=== PATIENT | female | born 1940 | race Caucasian/White ===

== ENCOUNTER → 2017-04-28 09:52 | Outpatient (CLI) | payer MEDICARE, OTHER, SELFPAY | PROVIDERS: Family Provider Family Medicine Geriatric Medicine; PCP Family Medicine Geriatric Medicine; Visit Provider Family Medicine Geriatric Medicine | DX: R69 Illness, unspecified (principal) ==

== ENCOUNTER → 2017-04-28 12:10 | Outpatient (CLI) | payer MEDICARE, OTHER, SELFPAY ==
[2017-04-28 13:17] LABS: Absolute Lymphocyte Count 2.74 X10^3/ul (0.83-4.51); Absolute Neutrophil Count 3.3 X10^3/uL (2.0-7.7); Basophil# 0.03 X10^3/uL; Basophil% 0.4 % (0-1); Eosinophil# 0.32 X10^3/uL; Eosinophils% 4.6 % (0-5); Hematocrit 38.1 % (37-47); Hemoglobin 11.9 g/dl (12.0-15.0); Lymphocyte # 2.74 X10^3/ul (4.0); Lymphocyte % 39.1 % (19-41); Mean Corp Hgb Conc 31.2 g/gl (32-36); Mean Corpuscular Hgb 29.6 pg (27.0-32.0); Mean Corpuscular Volume 94.8 fL (81-99); Mean Platelet Vol. 10.2 fl (6.2-12.0); Monocyte# 0.62 X10^3/uL; Monocyte% 8.8 % (0-10); Neutrophil # 3.29 X10^3/uL (2.7-7.7); Platelet Count 265 K/mm3 (150-450); RBC Distribution Width SD 44.8 fl (35.1-43.9); Red Blood Count 4.02 M/mm3 (4.2-5.4)
[2017-04-28 13:28] LABS: POSITIVE COUNT NO; POSITIVE DIFFERENTIAL NO; POSITIVE MORPHOLOGY NO
[2017-04-28 13:45] LABS: ALB/GLOB Ratio 0.9 RATIO (0.9-2.4); AST(SGOT) 25 U/L (15-37); Alanine Aminotransfer ALT/SGPT 24 U/L (13-56); Albumin, Serum 3.5 g/dL (3.2-5.0); Alkaline Phosphatase 101 U/L (45-117); Anion Gap 7 (5-15); BUN 16 mg/dL (7-18); BUN/Creat Ratio 19.1 RATIO (10-20); Calcium,Total 8.7 mg/dL (8.5-10.1); Chloride 104 mmol/L (98-107); Creatinine, Serum 0.84 mg/dL (0.55-1.02); EST Glomerular Filtration Rate 70 mL/min (>60); Est Glom Filt Rate - Afr Amer 85 mL/min (>60); Glucose 90 mg/dL (74-106); Potassium 4.4 mmol/L (3.5-5.1); Protein, Total 7.5 g/dL (6.4-8.2); Sodium Level 140 mmol/L (136-145); Thyroid Stim Hormone (TSH) 3.48 uIU/mL (0.358-3.74)
[2017-04-29 10:36] LABS: Vitamin D,25 Hydroxy 22.8 ng/mL (19.95-100.01)
== END ==
PROVIDERS: Family Provider Family Medicine Geriatric Medicine; PCP Family Medicine Geriatric Medicine; Visit Provider Family Medicine Geriatric Medicine
DX: E55.9 Vitamin D deficiency, unspecified (principal); I10 Essential (primary) hypertension
CPT/HCPCS: 36415; 80053; 82306; 84443; 85025

== ENCOUNTER → 2017-05-04 08:23 | Outpatient (CLI) | payer MEDICARE, OTHER, SELFPAY ==
--- NOTE | 2017-05-04 08:26 | US_ITS ---
STUDY: THYROID ULTRASOUND REASON FOR EXAM: Female, 76 years old. Thyroid nodule. TECHNIQUE: Ultrasound evaluation of the thyroid was performed with real-time and static kaur-scale imaging. COMPARISON: None. FINDINGS: RIGHT LOBE: The right lobe of the thyroid gland measures 4.3 cm x 1.4 cm x 1.1 cm. There is a homogeneous echotexture. There are no demonstrated solid, cystic or complex lesions. LEFT LOBE: The left lobe of the thyroid gland measures 4.1 cm x 1.3 cm x 1.4 cm. There is a homogeneous echotexture. There is a 1.4 cm x 1 cm x 1 cm hypoechoic solid nodule in the midportion of the left lobe of the thyroid. ISTHMUS: The isthmus measures 2.0 mm. The regional lymph nodes are normal. US/Thyroid IMPRESSION: 1.4 cm x 1 cm x 1 cm solid nodule in the midportion of the left lobe. A biopsy is recommended. Electronically Signed: Michael Wynn MD at 15:11 EST Tel [phone], Service support ,
--- NOTE | 2017-05-04 08:34 | US_ITS ---
PROCEDURES: ULTRASOUND AORTA REASON FOR EXAM: Female, 76 years old. History of abdominal aortic aneurysm. TECHNIQUE: Ultrasound evaluation of the aorta was performed with real-time and static kaur-scale imaging. COMPARISON: Comparison is made with prior CT scan the abdomen dated August 08, 2016. FINDINGS: There is obscuration of the abdominal aorta by overlying bowel gas Aorta measures: Proximal 3.1 cm. Middle 2.9 cm. Distal 1.5 cm. Aorta measure transversely: Proximal 2.7 cm. Middle 2.4 cm. Distal 1.4 cm. Right iliac artery measures: 1.8 cm. Right iliac artery measure transversely: 1.0 cm. Left iliac artery measures: 1.8 cm. Left iliac artery measure transversely: 1.0 cm. There is no demonstrated aneurysm.. US/Aorta IMPRESSION: There is no evidence of abdominal aortic aneurysm. Electronically Signed: Michael Wynn MD at 15:38 EST Tel [phone], Service support ,
== END ==
PROVIDERS: Family Provider Family Medicine Geriatric Medicine; PCP Family Medicine Geriatric Medicine; Visit Provider Family Medicine Geriatric Medicine
DX: I71.4 Abdominal aortic aneurysm, without rupture (principal); E04.1 Nontoxic single thyroid nodule
CPT/HCPCS: 76536; 76775

== ENCOUNTER → 2017-05-19 13:30 | Outpatient (CLI) | payer MEDICARE, OTHER, SELFPAY ==
--- NOTE | 2017-05-19 | ASPIG_PTH ---
PATIENT: LEONARDO MORAN LOC: U#:[id number] AGE/SX: 84/F ROOM: RE05/19/[address]: Dr. Abraham Gallo MD : 1940 BED: DIS: SPEC #: [id number] RECD: 05/19/17 15:38 STATUS: RAPHAEL STEPHON #: [id number] RAVINDRA: 05/19/17 00:[address]: Abraham Gallo [facility] DEPT: CYTOLOGY RECD BY: Stephan Corral Tissues: Thyroid gland, NOS Procedures: FNA Specimen Adequacy Pap Stain (control) Special Stain Group II Surgery Specimen Level IV Diff Quik Stain (control) Cell Block Cytology Other HEADER OPERATION: Ultrasound-guided thyroid FNA PRE-OP DIAGNOSIS: Left thyroid nodule TISSUE SUBMITTED: Left thyroid nodule FNA DIAGNOSIS CYTOLOGY Left thyroid nodule, ultrasound-guided FNA (smears, cytospin and cell block): Nondiagnostic specimen. See cytology study and comment. COMMENT The specimen is evaluated at the time of left thyroid FNA by Dr. Echeverria. Immediate Evaluation = Set #1 ? Follicular cells not seen. Set #2 ? Follicular cells not seen. Correlation with clinical, radiologic findings and appropriate follow up are necessary. Rebiopsy is suggested if clinically indicated. CYTOLOGY STUDY Slides are reviewed. The specimen is nondiagnostic. Follicular cells are not seen. The specimen almost entirely consists of blood, rare lymphocytes and one giant cell. CYTOLOGY GROSS Set #1 ? two passes - Received is 0.3 ml of bloody fluid labeled with the patient's name, and designated left thyroid. Six imprints and four paps are made from the submitted fluid and the rest is added to CytoLyt for cell block and cytospin preparation. Submitted for cytology study. Set #2 ? one pass - Received is 0.2 ml of bloody fluid labeled with the patient's name, and designated left thyroid. Four imprints and three paps are made from the submitted fluid and the rest is added to CytoLyt for cell block and cytospin preparation. Submitted for cytology study. / SJ:boy 05/19/17 TC: Cannot code CPT: 23004, 55270, 76288, 81035, 26781
--- NOTE | 2017-05-19 13:36 | US_ITS ---
PROCEDURE: ULTRASOUND GUIDED LEFT THYROID FNA/BIOPSY. DATE: May 19, 2017. INDICATION: Female, 76 years old. Left thyroid nodule PHYSICIAN: Michael Wynn M.D. MEDICATIONS: 2% lidocaine administered subcutaneously for local anesthesia. ACCESS SITE: Left - anterior approach. NEEDLE: 25-gauge FNA needle. SPECIMEN: Multiple FNA specimen collected and given to pathology. EBL: None. COMPLICATIONS: None immediate. PROCEDURE: The risks, benefits, and alternatives to the procedure were explained to the patient. The specific risk of hemorrhage requiring further treatment or intervention was detailed and accepted. Written informed consent was obtained. The patient was brought into the ultrasound room and placed in the supine position on the stretcher. An appropriate entry site was identified. The overlying skin was prepped and draped in the usual sterile fashion. 2% lidocaine was administered subcutaneously for local anesthesia. Under ultrasound guidance, a 25-gauge FNA needle was advanced into the lesion. Aspiration was performed and the needle was withdrawn. A total of 4 passes were performed with specimen collected and given to the pathologist who was present during the procedure. Hemostasis was achieved with manual compression. Repeat ultrasound images of the biopsy area was performed which demonstrated no gross bleeding or hematoma. An antibiotic ointment dressing was placed and the patient was given an icepack. The patient tolerated the procedure well without immediate complications. The patient was discharged in stable condition. US/US Thyroid Biopsy IMPRESSION: Successful ultrasound-guided left thyroid nodule FNA/biopsy, as described above. Electronically Signed: Michael Wynn MD at 15:34 EDT Tel [phone], Service support ,
== END ==
PROVIDERS: Family Provider Family Medicine Geriatric Medicine; PCP Family Medicine Geriatric Medicine; Visit Provider Family Medicine Geriatric Medicine
DX: E04.1 Nontoxic single thyroid nodule (principal)
CPT/HCPCS: 10022; 76942; 88161; 88172; 88305; 88313

== ENCOUNTER → 2017-06-22 08:12 | Outpatient (CLI) | payer MEDICARE, OTHER, SELFPAY ==
--- NOTE | 2017-06-20 09:50 | ASPS_PTH ---
PATIENT: LEONARDO MORAN LOC: JOB U#:[id number] AGE/SX: 84/F ROOM: RE06/22/[address]: Dr. Meño Smyth MD : 1940 BED: DIS: SPEC #: [id number] RECD: 06/22/17 07:15 STATUS: RAPHAEL STEPHON #: [id number] RAVINDRA: 06/20/17 09:[address]: Meño Smyth DEPT: CYTOLOGY RECD BY: Quang Soliman ENTERED: 06/22/17 09:48 SP TYPE: ASPIRATION OTHR DR: Dr. Abraham Gallo MD Tissues: Thyroid gland, NOS Procedures: Pap Stain (control) Special Stain Group II Cytology Other HEADER OPERATION: Left thyroid FNA PRE-OP DIAGNOSIS: Left thyroid nodule TISSUE SUBMITTED: Left thyroid slides DIAGNOSIS CYTOLOGY Left thyroid nodule, FNA (smears): Consistent with benign follicular nodule.. See cytology study and comment. SJ:boy 06/24/17 COMMENT Correlation with clinical, radiologic findings and appropriate follow up are necessary. Please make reference to previous cytology ([id number]) left thyroid nodule, ultrasound guided FNA with diagnosis of nondiagnostic specimen. CYTOLOGY STUDY Slides are reviewed. The specimen is adequate for evaluation. The specimen consists of benign follicular cells, small amount of colloid and numerous degenerated cells most likely degenerated follicular cells. CYTOLOGY GROSS Received are eight smears labeled with the patient's name and designated per the requisition as left thyroid. Submitted for staining. / 06/22/17 TC:5 CPT: 63063
== END ==
PROVIDERS: Family Provider Family Medicine Geriatric Medicine; PCP Family Medicine Geriatric Medicine; Visit Provider Surgery
DX: E04.1 Nontoxic single thyroid nodule (principal)
CPT/HCPCS: 88161; 88313

== ENCOUNTER → 2017-10-27 10:59 | Outpatient (CLI) | payer MEDICARE, OTHER, SELFPAY ==
[2017-10-27 13:05] LABS: Absolute Lymphocyte Count 2.95 X10^3/ul (0.83-4.51); Basophil# 0.04 X10^3/uL; Basophil% 0.4 % (0-1); Eosinophil# 0.28 X10^3/uL; Eosinophils% 3.1 % (0-5); Hematocrit 37.8 % (37-47); Hemoglobin 11.8 g/dl (12.0-15.0); Lymphocyte # 2.95 X10^3/ul (4.0); Lymphocyte % 32.9 % (19-41); Mean Corp Hgb Conc 31.2 g/gl (32-36); Mean Corpuscular Hgb 29.6 pg (27.0-32.0); Mean Platelet Vol. 10.4 fl (6.2-12.0); Monocyte% 7.8 % (0-10); Neutrophil % 55.8 % (47-70); Platelet Count 259 K/mm3 (150-450); RBC Distribution Width CV 13.1 % (11.6-14.6); RBC Distribution Width SD 45.6 fl (35.1-43.9); Red Blood Count 3.98 M/mm3 (4.2-5.4)
[2017-10-27 13:06] LABS: POSITIVE COUNT NO; POSITIVE DIFFERENTIAL NO; POSITIVE MORPHOLOGY NO
[2017-10-27 13:41] LABS: BUN 12 mg/dL (7-18); Creatinine, Serum 0.88 mg/dL (0.55-1.02); Glucose 82 mg/dL (74-106)
[2017-10-27 13:42] LABS: ALB/GLOB Ratio 0.8 RATIO (0.9-2.4); AST(SGOT) 21 U/L (15-37); Alanine Aminotransfer ALT/SGPT 22 U/L (13-56); Albumin, Serum 3.3 g/dL (3.2-5.0); Alkaline Phosphatase 98 U/L (45-117); Anion Gap 6 (5-15); BUN/Creat Ratio 13.7 RATIO (10-20); Calcium,Total 9.1 mg/dL (8.5-10.1); Chloride 104 mmol/L (98-107); EST Glomerular Filtration Rate 66 mL/min (>60); Est Glom Filt Rate - Afr Amer 80 mL/min (>60); Globulin 4.2 g/dL (2.2-4.2); Potassium 4.4 mmol/L (3.5-5.1); Protein, Total 7.5 g/dL (6.4-8.2); Sodium Level 140 mmol/L (136-145); Thyroid Stim Hormone (TSH) 3.57 uIU/mL (0.358-3.74)
== END ==
PROVIDERS: Family Provider Family Medicine Geriatric Medicine; PCP Family Medicine Geriatric Medicine; Visit Provider Family Medicine Geriatric Medicine
DX: E55.9 Vitamin D deficiency, unspecified (principal); I10 Essential (primary) hypertension
CPT/HCPCS: 36415; 80053; 82306; 84443; 85025

== ENCOUNTER → 2017-10-30 10:11 | Outpatient (CLI) | payer MEDICARE, OTHER, SELFPAY | PROVIDERS: Family Provider Family Medicine Geriatric Medicine; PCP Family Medicine Geriatric Medicine; Visit Provider Family Medicine Geriatric Medicine | DX: R10.9 Unspecified abdominal pain (principal) | CPT/HCPCS: 76705 ==

== ENCOUNTER → 2018-02-01 15:58 | Outpatient (CLI) | payer MEDICARE, OTHER, SELFPAY ==
--- OUTSIDE RECORDS SUMMARY | 2018-03-16 14:34 | XMS RPT_ITS ---
:1940 Author Organization OHIP Support Name Relationship Address Phone R Unavailable Unavailable Unavailable ARYA, ELVIA Unavailable [id number] + [place] [address] R Unavailable Unavailable Unavailable ARYA, ELVIA Unavailable [address] + [place] [address] NOT GIVEN Unavailable Unavailable Unavailable ARYA, ELVIA Unavailable REGULA WILBER + NOT GIVEN Unavailable Unavailable Unavailable KOENIG, ELVIA Unavailable REGULA WILBER + R Unavailable Unavailable Unavailable ARYA, ELVIA Unavailable [address] + [place] [address] NOT GIVEN Unavailable Unavailable Unavailable KOENIG, ELVIA Unavailable REGULA WILBER + R Unavailable Unavailable Unavailable ARYA, ELVIA Unavailable [address] + [place] [address] R Unavailable Unavailable Unavailable ARYA, ELVIA Unavailable [address] + [place] [address] R Unavailable Unavailable Unavailable ARYA, ELVIA Unavailable [address] + [place] [address] R Unavailable Unavailable Unavailable ARYA, ELVIA Unavailable [address] + [place] [address] R Unavailable Unavailable Unavailable ARYA, ELVIA Unavailable [address] + [place] [address] R Unavailable Unavailable Unavailable ARYA, ELVIA Unavailable [address] + [place] [address] R Unavailable Unavailable Unavailable ARYA, ELVIA Unavailable [address] + [place] [address] R Unavailable Unavailable Unavailable ARYA, ELVIA Unavailable [address] + [place] [address] R Unavailable Unavailable Unavailable ELVIA KOENIG Unavailable [address] + [place] [address] Care Team Providers Name Role Phone MELL MCKEON MD Admitting Unavailable MELL MCKEON MD Attending Unavailable MELL MCKEON MD Primary Care Unavailable MELL MCKEON MD Consulting Unavailable PROVIDER, UNKNOWN Consulting Unavailable PROVIDER, UNKNOWN Consulting Unavailable MARCO, DR REINIER Bennett Admitting Unavailable MARCO, DR REINIER Bennett Attending Unavailable MELL MCKEON MD Referring Unavailable MARCO, DR REINIER Bennett Primary Care Unavailable MELL MCKEON MD Consulting Unavailable PROVIDER, UNKNOWN Consulting Unavailable PROVIDER, UNKNOWN Consulting Unavailable MELL MCKEON MD Admitting Unavailable MELL MCKEON MD Attending Unavailable MELL MCKEON MD Primary Care Unavailable MELL MCKEON MD Consulting Unavailable PROVIDER, UNKNOWN Consulting Unavailable PROVIDER, UNKNOWN Consulting Unavailable Linda, Mell Chi Attending Unavailable Linda, Mell Chi Primary Care Unavailable Linda, Mell Chi Attending Unavailable Linda, Mell Chi Primary Care Unavailable Linda, Mell Chi Attending Unavailable Linda, Mell Chi Referring Unavailable Linda, Mell Chi Primary Care Unavailable Linda, Mell Chi Attending Unavailable Linda, Mell Chi Referring Unavailable Linda, Mell Chi Primary Care Unavailable Cebul Meño Attending Unavailable Linda, Mell Chi Referring Unavailable Linda, Mell Chi Primary Care Unavailable Cebul, Meño Attending Unavailable Linda, Mell Chi Referring Unavailable Cebul, Meño Attending Unavailable Linda, Mell Chi Referring Unavailable Linda, Mell Chi Primary Care Unavailable Cebul, Meño Attending Unavailable Cebul, Meño Referring Unavailable Linda, Mell Chi Primary Care Unavailable Linda, Mell Chi Attending Unavailable Linda, Mell Chi Primary Care Unavailable Linda, Mell Chi Attending Unavailable Linda, Mell Chi Primary Care Unavailable Linda, Mell Chi Attending Unavailable Linda, Mell Chi Referring Unavailable Linda, Mell Chi Primary Care Unavailable Linda, Mell Chi Attending Unavailable Linda, Mell Chi Referring Unavailable Linda, Mell Chi Primary Care Unavailable PROBLEMS PROBLEMS DATE TYPE CONDITION / CODE ATTENDING STATUS SOURCE 02/05/2018 Unknown R60.9 - Edema, Linda, Mell Chi Active [facility] unspecified / Community R60.9(ICD-10) Hospital Repository 02/01/2018 Unknown R68.83 - Chills Linda, Mell Chi Active [facility] (without fever) / Community R68.83(ICD-10) Hospital Repository 10/28/2017 Admitting Unspecified MELL MCKEON MD Active [facility] [place] Diagnosis abnormalities of [facility] gait and mobility / Hospital R269(ICD-10) Repository 10/28/2017 Principle Unspecified MELL MCKEON MD Active [facility] [place] Diagnosis abnormalities of [facility] gait and mobility / Hospital R269(ICD-10) Repository 10/28/2017 Secondary History of falling MELL MCKEON MD Active [facility] [place] Diagnosis / Z9181(ICD-10) 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 Community / E04.2(ICD-10) Hospital Repository 04/28/2017 Unknown E55.9 - Vitamin D Mell Mckeon Chi Active [facility] deficiency, Community unspecified / Hospital E55.9(ICD-10) Repository 04/28/2017 Unknown I10 - Essential Mell Mckeon Chi Active [facility] (primary) [facility] hypertension / Hospital I10(ICD-10) Repository PROCEDURES PROCEDURES No Procedure Records FoundRESULTS RESULTS CBC W/DIFF, AUTOMATED Collected: 02/05/2018 Status: F Source: [facility] 12:39 PM [facility] REPOSITORY TYPE CODE TESTS RESULT OUT OF RANGE REFERENCE UNITS LAB L100.1000 4.4-11.0 K/mm3 High WBC 13.0 LAB L100.1200 4.2-5.4 M/mm3 Normal RBC 4.20 LAB L100.1300 12.0-15.0 g/dl Normal HGB 12.7 LAB L100.1400 37-47 % Normal HCT 40.2 LAB L100.1500 81-99 fL Normal MCV 95.7 LAB L100.1600 27.0-32.0 pg Normal MCH 30.2 LAB L100.1700 32-36 g/gl Low MCHC 31.6 LAB L100.1810 11.6-14.6 % Normal RDW CV 14.2 LAB L100.1820 35.1-43.9 fl High RDW SD 49.3 LAB L100.1900 150-450 K/mm3 Normal PLT 362 LAB L100.2000 6.2-12.0 fl Normal MPV 10.0 LAB L100.2100 47-70 % High NEUT% 75.9 LAB L100.2200 19-41 % Low LY% 18.4 LAB L100.2300 0-10 % Normal MONO% 4.9 LAB L100.2400 0-5 % Normal EO% 0.4 LAB L100.2500 0-1 % Normal BASO% 0.2 LAB L100.2550 0.0-0.9 % Normal IM GRAN % 0.200 Result Comment: IG% - Immature Granulocytes (promyelocytes, myelocytes and metamyelocytes) > 1% indicates that a LEFT SHIFT is Present. LAB L100.2620 2.0-7.7 X10 3/uL High Absolute Neut 9.9 LAB L100.2720 0.83-4.51 X10 3/ul Normal Absolute Lymph 2.39 Performed By: #### L100.0100 #### [facility] [address] [place], [place], [address] BASIC METABOLIC Collected: 02/05/2018 Status: F Source: [place] PROFILE (BMP) 12:39 PM [facility] REPOSITORY TYPE CODE TESTS RESULT OUT OF RANGE REFERENCE UNITS LAB L501.0100 74-106 mg/dL High GLU 127 Result Comment: Fasting Glucose result greater than or equal to 126 mg/dL suggests DIABETES MELLITUS per A.D.A. criteria. Please note revised GLUCOSE reference range effective 2017. LAB L501.1000 7-18 mg/dL High BUN 28 LAB L501.1100 0.55-1.02 mg/dL High CREAT,SERUM 1.10 Result Comment: The validity of the calculated GFR AND GFRAA in patients over 70 years has not been determined. Clinical correlation is essential. LAB L501.1110 >60 mL/min Low EST GFR 51 Result Comment: Non- GFR Calc LAB L501.1115 >60 mL/min Normal EST GFR - AA 62 Result Comment: GFR Calc LAB L501.1300 10-20 RATIO High BUN/CRE 25.5 LAB L501.2200 8.5-10.1 mg/dL CA Normal 8.5 LAB L501.5300 136-145 mmol/L NA Normal 138 LAB L501.5600 3.5-5.1 mmol/L K Normal 4.6 LAB L501.5900 98-107 mmol/L CL Normal 101 LAB L501.6100 21.0-32.0 mmol/L Normal CO2 29.0 LAB L501.6200 5-15 Normal GAP 8 Performed By: #### L500.2500 #### [facility] [address] [place], [place], [address] Observed: 02/01/2018 Status: F Source: [facility] RESPIRATORY PANEL 4:15 PM [facility] MOLECULAR REPOSITORY RP PANEL Normal Reference Range = Not Detected ADENOVIRUS Not Detected HUMAN METAPHNEUMO Not Detected INFLUENZA A Not Detected INFLUENZA A (SUBTYPE H1) Not Detected INFLUENZA A (SUBTYPE H3) Not Detected INFLUENZA B Not Detected PARAINFLUENZA 1 Not Detected PARAINFLUENZA 2 Not Detected PARAINFLUENZA 3 Not Detected PARAINFLUENZA 4 Not Detected RHINOVIRUS Not Detected RSV A Not Detected RSV B Not Detected NAAT METHOD Testing was performed using nucleic acid amplification Performed By: #### M100.638 #### [facility] [address] [place], [address] PROGRESS Observed: 01/14/2018 Status: COMPLETED Source: MOBILE 5:17 PM [facility] REPOSITORY HNO ID: [id number] Author: Carlos A Reich (Pa) Service: (none) Author Type: Physician Resident Care Manager Rn Type: Progress Notes Filed: 01/14/2018 7:31 PM Note Text: Subjective HPI HPI Leonardo Macias is a 77 year old female who presents today for CC of chest congestion and cough that started over a week ago. Has taken Robitussin, theraflu, dayquil, etc., with minimal relief. BP 124/80 Pulse 79 Temp 36.2 ?C (97.1 ?F) (Left Tympanic) Resp 20 Wt 99.3 kg (219 lb) SpO2 97% BMI 37.59 kg/m? ALLERGIES Allergen Reactions - Codeine GI Upset - Penicillins Unknown - Sulfa (Sulfonamide * Swelling ACTIVE PROBLEM LIST Blepharochalasis Blepharospasm Lens Replaced By Other Means Tear Film Insufficiency, Unspecified Family History Problem Relation Age of Onset - No Ocular Disease Father Social History Marital status: Unknown Spouse name: Years of education: Number of children: 6 Social History Main Topics Smoking status: Former Smoker Packs/day: 0.00 Years: 0.00 Smokeless tobacco: Never Used Alcohol use: No Drug use: No Review of Systems Constitutional: Positive for chills (At night). Negative for fever and malaise/fatigue. HENT: Positive for congestion and sore throat. Negative for ear pain and sinus pain. Respiratory: Positive for cough, sputum production (Whitish- yellow ), shortness of breath and wheezing. Cardiovascular: Negative for chest pain. Gastrointestinal: Positive for diarrhea (Since yesterday- 5x yesterday, 1x today ). Neurological: Negative for headaches. Objective Physical Exam Constitutional: She is oriented to person, place, and time and well-developed, well-nourished, and in no distress. Vital signs are normal. HENT: Head: Normocephalic. Right Ear: Tympanic membrane, external ear and ear canal normal. No drainage. Tympanic membrane is not perforated, not erythematous, not retracted and not bulging. No middle ear effusion. Left Ear: Ear canal normal. No drainage. Tympanic membrane is not perforated, not erythematous, not retracted and not bulging. No middle ear effusion. Nose: Mucosal edema and rhinorrhea present. Right sinus exhibits no maxillary sinus tenderness and no frontal sinus tenderness. Left sinus exhibits no maxillary sinus tenderness and no frontal sinus tenderness. Mouth/Throat: Uvula is midline and mucous membranes are normal. Posterior oropharyngeal edema and posterior oropharyngeal erythema present. No oropharyngeal exudate or tonsillar abscesses. Thick purulent PND noted on posterior oropharynx Eyes: Conjunctivae and lids are normal. Cardiovascular: Normal rate, regular rhythm, S1 normal and S2 normal. Exam reveals no friction rub. Pulmonary/Chest: Effort normal. She has wheezes (Wheezes noted bilaterally; More clear to auscultation s/p aerosol treatment). She has no rhonchi. She has no rales. Lymphadenopathy: Head (right side): No submental, no submandibular, no tonsillar, no preauricular, no posterior auricular and no occipital adenopathy present. Head (left side): No submental, no submandibular, no tonsillar, no preauricular, no posterior auricular and no occipital adenopathy present. Right cervical: No superficial cervical and no posterior cervical adenopathy present. Left cervical: No superficial cervical and no posterior cervical adenopathy present. Neurological: She is oriented to person, place, and time. ASSESSMENT/PLAN: 1. Acute bronchitis, unspecified organism - ICD9: 466.0, ICD10: J20.9 (primary diagnosis) Mucinex and albuterol inhaler every 4-6 hours as needed for shortness of breath Explained to pt and daughter that we really should try to avoid steroid use d/t to her age/HTN-- but If still having persisting wheezing/SOB, will consider adding in prednisone (rx printed) - daughter agrees that they will try to refrain from filling - ALBUTEROL SULFATE HFA 90 MCG/ACTUATION AEROSOL INHALER - PREDNISONE 20 MG TABLET 2. Acute non-recurrent sinusitis, unspecified location - ICD9: 461.9, ICD10: J01.90 - Will begin treatment with as per antibiotic as written, see orders - Supportive care with plenty of fluids, rest, and analgesia prn. - see above - DOXYCYCLINE MONOHYDRATE 100 MG CAPSULE 3. Wheezing - ICD9: 786.07, ICD10: R06.2 See above - IPRATROPIUM-ALBUTEROL 0.5 MG-3 MG(2.5 MG BASE)/3 ML NEBULIZATION SOLN Follow up with PCP if symptoms persist or sooner if worsening of symptoms. Reviewed red flags with patient and when to seek care sooner. The patient indicates understanding of these issues and agrees with the plan. Carlos A Reich PA-C CNOV Observed: 01/14/2018 Status: COMPLETED Source: MOBILE 4:45 PM [facility] REPOSITORY Office Visit ([facility]) LEONARDO MACIAS ([id number]) 1940 F Date Time Provider Department 01/14/18 4:45 PM CARLOS A REICH (SARAH) WSTR During your visit today, we recorded the following information about you: Temperature Pulse Respiration Blood pressure 97.1 degrees 79/minute 20/minute 124/80 Weight 99.3 kg Carlos A Reich PA-C 01/14/2018 7:31 PM Signed Subjective HPI HPI Leonardo Macias is a 77 year old female who presents today for CC of chest congestion and cough that started over a week ago. Has taken Robitussin, theraflu, dayquil, etc., with minimal relief. BP 124/80 Pulse 79 Temp 36.2 ?C (97.1 ?F) (Left Tympanic) Resp 20 Wt 99.3 kg (219 lb) SpO2 97% BMI 37.59 kg/m? ALLERGIES Allergen Reactions - Codeine GI Upset - Penicillins Unknown - Sulfa (Sulfonamide * Swelling ACTIVE PROBLEM LIST Blepharochalasis Blepharospasm Lens Replaced By Other Means Tear Film Insufficiency, Unspecified Family History Problem Relation Age of Onset - No Ocular Disease Father Social History Marital status: Unknown Spouse name: Years of education: Number of children: 6 Social History Main Topics Smoking status: Former Smoker Packs/day: 0.00 Years: 0.00 Smokeless tobacco: Never Used Alcohol use: No Drug use: No Review of Systems Constitutional: Positive for chills (At night). Negative for fever and malaise/fatigue. HENT: Positive for congestion and sore throat. Negative for ear pain and sinus pain. Respiratory: Positive for cough, sputum production (Whitish- yellow ), shortness of breath and wheezing. Cardiovascular: Negative for chest pain. Gastrointestinal: Positive for diarrhea (Since yesterday- 5x yesterday, 1x today ). Neurological: Negative for headaches. Objective Physical Exam Constitutional: She is oriented to person, place, and time and well-developed, well-nourished, and in no distress. Vital signs are normal. HENT: Head: Normocephalic. Right Ear: Tympanic membrane, external ear and ear canal normal. No drainage. Tympanic membrane is not perforated, not erythematous, not retracted and not bulging. No middle ear effusion. Left Ear: Ear canal normal. No drainage. Tympanic membrane is not perforated, not erythematous, not retracted and not bulging. No middle ear effusion. Nose: Mucosal edema and rhinorrhea present. Right sinus exhibits no maxillary sinus tenderness and no frontal sinus tenderness. Left sinus exhibits no maxillary sinus tenderness and no frontal sinus tenderness. Mouth/Throat: Uvula is midline and mucous membranes are normal. Posterior oropharyngeal edema and posterior oropharyngeal erythema present. No oropharyngeal exudate or tonsillar abscesses. Thick purulent PND noted on posterior oropharynx Eyes: Conjunctivae and lids are normal. Cardiovascular: Normal rate, regular rhythm, S1 normal and S2 normal. Exam reveals no friction rub. Pulmonary/Chest: Effort normal. She has wheezes (Wheezes noted bilaterally; More clear to auscultation s/p aerosol treatment). She has no rhonchi. She has no rales. Lymphadenopathy: Head (right side): No submental, no submandibular, no tonsillar, no preauricular, no posterior auricular and no occipital adenopathy present. Head (left side): No submental, no submandibular, no tonsillar, no preauricular, no posterior auricular and no occipital adenopathy present. Right cervical: No superficial cervical and no posterior cervical adenopathy present. Left cervical: No superficial cervical and no posterior cervical adenopathy present. Neurological: She is oriented to person, place, and time. ASSESSMENT/PLAN: 1. Acute bronchitis, unspecified organism - ICD9: 466.0, ICD10: J20.9 (primary diagnosis) Mucinex and albuterol inhaler every 4-6 hours as needed for shortness of breath Explained to pt and daughter that we really should try to avoid steroid use d/t to her age/HTN-- but If still having persisting wheezing/SOB, will consider adding in prednisone (rx printed) - daughter agrees that they will try to refrain from filling - ALBUTEROL SULFATE HFA 90 MCG/ACTUATION AEROSOL INHALER - PREDNISONE 20 MG TABLET 2. Acute non-recurrent sinusitis, unspecified location - ICD9: 461.9, ICD10: J01.90 - Will begin treatment with as per antibiotic as written, see orders - Supportive care with plenty of fluids, rest, and analgesia prn. - see above - DOXYCYCLINE MONOHYDRATE 100 MG CAPSULE 3. Wheezing - ICD9: 786.07, ICD10: R06.2 See above - IPRATROPIUM-ALBUTEROL 0.5 MG-3 MG(2.5 MG BASE)/3 ML NEBULIZATION SOLN Follow up with PCP if symptoms persist or sooner if worsening of symptoms. Reviewed red flags with patient and when to seek care sooner. The patient indicates understanding of these issues and agrees with the plan. GIGI Ross Ma 01/14/2018 5:49 PM Signed 2.5 solution aerosol treatment given per doctor's orders. Prior to treatment O2 Sat is 97%. Treatment completed. O2 sat is 99%. Tolerated well. Carlos A Reich PA-C 01/14/2018 5:53 PM Signed Mucinex and albuterol inhaler every 4-6 hours as needed for shortness of breath If still having wheezing/SOB, will consider adding in prednisone Referring Provider: SELF [200] Allergies As of Date: 01/14/2018 Noted Allergy Reaction CODEINE 10/12/2012 8 - GI Upset PENICILLINS 10/12/2012 16 - Unknown SULFA (SULFONAMIDE ANTIBIOTICS) 01/12/2014 7 - Swelling Date Reviewed: 01/14/2018 Reviewed by: Sabrina Ribeiro Ma - Fully Assessed Reason for Visit: Cough [28] Diarrhea [35] Primary Visit Diagnosis:Acute bronchitis, unspecified organism [J20.9] Other Visit Diagnoses:Acute non-recurrent sinusitis, unspecified location [J01.90] Wheezing [R06.2] Order(s):[] ipratropium-albuterol 3 mL nebulizer solution (DUONEB)Disp: Rfl: doxycycline monohydrate (MONODOX) 100 mg capsuleTake 1 capsule by mouth twice daily for 10 days.Disp: 20 capsuleRfl: 0 albuterol HFA (PROAIR HFA) 90 mcg/actuation inhalerInhale 2 Puffs as instructed every 4 hours as needed for Wheezing/Shortness of Breath.Disp: 1 InhalerRfl: 0 predniSONE (DELTASONE) 20 mg tabletTake 2 tablets by mouth once daily.Disp: 5 tabletRfl: 0 Prescriptions as of 01/14/2018 Sig: DIAZEPAM 2 MG TABLET PANTOPRAZOLE 40 MG TABLET,DEL* Take 40 mg by mouth once isrrael* ATORVASTATIN 40 MG TABLET Take 40 mg by mouth once isrrael* ATENOLOL 25 MG TABLET Take 25 mg by mouth once isrrael* LINACLOTIDE 290 MCG CAPSULE Take by mouth once daily. LORATADINE 10 MG TABLET Take 10 mg by mouth once isrrael* PRIMIDONE 50 MG TABLET Take 1 tablet by mouth four t* DOXYCYCLINE MONOHYDRATE 100 M* Take 1 capsule by mouth twice* ALBUTEROL SULFATE HFA 90 MCG/* Inhale 2 Puffs as instructed * PREDNISONE 20 MG TABLET Take 2 tablets by mouth once * HYDROCODONE 7.5 MG-ACETAMINOP* ONDANSETRON HCL 4 MG TABLET Take 4 mg by mouth every 12 h* METOCLOPRAMIDE 10 MG TABLET Take 10 mg by mouth four time* ATORVASTATIN 20 MG TABLET Take 20 mg by mouth once isrrael* DOMPERIDONE 10 MG TABLET Take 1 tablet by mouth four t* PEG 3350 240 GRAM-ELECTROLYTE* Take 4000 ml as directed. Fo* ASPIRIN 325 MG TABLET,DELAYED* Take 325 mg by mouth once donavan* OMEPRAZOLE 20 MG TABLET,DELAY* Take 1 tablet by mouth once d* OCUVITE EXTRA ORAL Take 1 tablet by mouth once d* Problem List As Of Date 01/14/2018 Noted Resolved Blepharochalasis [H02.30] INVALID FOR* Blepharospasm [G24.5] INVALID FOR* Lens replaced by other means [Z96.1] INVALID FOR* Tear film insufficiency, unspecified [H04.129] INVALID FOR* Other instructions from your clinician: Mucinex and albuterol inhaler every 4-6 hours as needed for shortness of breath If still having wheezing/SOB, will consider adding in prednisone Visit Notes: >> Sabrina Ribeiro Ma Audrey Jan 14, 2018 5:36 PM Status: Signed 2.5 solution aerosol treatment given per doctor's orders. Prior to treatment O2 Sat is 97%. Treatment completed. O2 sat is 99%. Tolerated well. Prescriptions ordered this encounter Disp Refills Start End IPRATROPIUM-ALBUTEROL 0.5 MG-3 MG(2.* 01/14/2018 01/14/2018 Route: INHALATION DOXYCYCLINE MONOHYDRATE 100 MG CAPSU* 20 c* 0 01/14/2018 01/24/2018 Route: ORAL Sig: Take 1 capsule by mouth twice daily for 10 days. ALBUTEROL SULFATE HFA 90 MCG/ACTUATI* 1 In* 0 01/14/2018 Route: INHALATION Sig: Inhale 2 Puffs as instructed every 4 hours as needed for Wheezing/Shortness of Breath. PREDNISONE 20 MG TABLET 5 ta* 0 01/14/2018 Class: Print RX Route: ORAL Sig: Take 2 tablets by mouth once daily. Encounter Status:Closed by CARLOS A REICH on 01/14/18 CHEST 1 VIEW Observed: 12/11/2017 Status: F Source: [facility] [place] 12:53 PM [place] [address] Patient: LEONARDO MACIAS Phone#: : 1940 Age: 77 Gender: F Pt. Type: ER Account: [id number] Location: 052 Ordering: REINIER LARA Exam Date: 12/11/2017/12:30 Family Phys: MELL MCKEON Charge Code: [id number] Physician: [place] Order #: [id number] DLP Dose#: PROCEDURE: X-RAY CHEST 1 VIEW COMPARISON: [facility], XR, CHEST AP, 04/11/2016, 14:51. INDICATIONS: Cough FINDINGS: LUNGS: Normal. No significant pulmonary parenchymal abnormalities. VASCULATURE: Normal. Unremarkable pulmonary vasculature. CARDIAC: Normal. No cardiac silhouette abnormality or cardiomegaly. MEDIASTINUM: Aorta is ectatic. Previously noted hiatal hernia is much reduced in size. PLEURA: Normal. No effusion or pleural thickening. BONES: Mild degenerative changes are present at the acromioclavicular joints bilaterally. OTHER: Negative. CONCLUSION: No acute disease. Dictated by: Mariella Fernandez MD on 12/11/2017 at 13:03 Approved by: Mariella Fernandez MD on 12/11/2017 at 13:03 PELVIS 1 OR 2 VIEWS Observed: 12/11/2017 Status: F Source: [place] [place] 12:52 PM [place] [address] Patient: LEONARDO MACIAS Phone#: : [phone] Age: 77 Gender: F Pt. Type: ER Account: [id number] Location: 052 Ordering: REINIER LARA Exam Date: 12/11/2017/12:09 Family Phys: MELL MCKEON Charge Code: [id number] Physician: [place] Order #: [id number] DLP Dose#: PROCEDURE: X-RAY PELVIS AP COMPARISON: [facility], XR, RIBS LT UNILAT W/CHEST EXPIRATION, 01/03/2017, 10:46. INDICATIONS: Trauma FINDINGS: BONES: Degenerative changes of the spine are present. There is no evidence of acute bone abnormality. SOFT TISSUES: Negative. No visible soft tissue swelling. EFFUSION: None visible. OTHER: Negative. CONCLUSION: No acute disease. Dictated by: Mariella Fernandez MD on 12/11/2017 at 13:01 Approved by: Mariella Fernandez MD on 12/11/2017 at 13:01 KNEE COMPLETE RT MIN Observed: 12/11/2017 Status: F [facility] 12:52 PM [place] [address] Patient: LEONARDO MACIAS Phone#: : 1940 Age: 77 Gender: F Pt. Type: ER Account: [id number] Location: [facility] Ordering: REINIER LARA Exam Date: 12/11/2017/12:16 Family Phys: MELL MCKEON Charge Code: [id number] Physician: [place] Order #: [id number] P Dose#: PROCEDURE: X-RAY KNEE RT COMPLETE 4 VIEWS COMPARISON: None. INDICATIONS: Trauma FINDINGS: BONES: Mild degenerative changes are present. SOFT TISSUES: Prepatellar soft tissue swelling is present. EFFUSION: A small joint effusion is present. OTHER: Negative. CONCLUSION: 1. Prepatellar soft tissue swelling is present. There is no evidence of acute bone abnormality. Dictated by: Mariella Fernandez MD on 12/11/2017 at 13:02 Approved by: Mariella Fernandez MD on 12/11/2017 at 13:02 ELBOW COMPLETE RT Observed: 12/11/2017 Status: F Source: [facility] [place] 12:52 PM [place] [address] Patient: LEONARDO MACIAS Phone#: : 1940 Age: 77 Gender: F Pt. Type: ER Account: [id number] Location: 052 Ordering: REINIER LARA Exam Date: 12/11/2017/12:21 Family Phys: MELL MCKEON Charge Code: [id number] Physician: [place] Order #: [id number] DLP Dose#: PROCEDURE: X-RAY ELBOW RT MIN 3 VIEWS COMPARISON: None. INDICATIONS: Trauma FINDINGS: BONES: Normal. No significant arthropathy or acute abnormality. SOFT TISSUES: Negative. No visible soft tissue swelling. EFFUSION: None visible. OTHER: Negative. CONCLUSION: No acute disease. Dictated by: Mariella Fernandez MD on 12/11/2017 at 13:02 Approved by: Mariella Fernandez MD on 12/11/2017 at 13:02 CT BRAIN W/O CONTRAST Observed: 12/11/2017 Status: F Source: [facility] 12:30 PM [place] [address] Patient: LEONARDO MACIAS Phone#: : 1940 Age: 77 Gender: F Pt. Type: ER Account: [id number] Location: 052 Ordering: REINIER LARA Exam Date: 12/11/2017/12:21 Family Phys: MELL MCKEON Charge Code: [id number] Physician: [place] Order #: [id number] DLP Dose#: PROCEDURE: CT BRAIN WITHOUT CONTRAST COMPARISON: None. INDICATIONS: Trauma TECHNIQUE: CT images were obtained without contrast material. All CT scans at this facility use dose modulation, iterative reconstruction, and/or weight based dosing when appropriate to reduce radiation dose to as low as reasonably achievable. IV CONTRAST: No IV contrast used,ml TOTAL DOSE: 52.3 CTDIvol(mGy) FINDINGS: CEREBRUM: Age-appropriate atrophy is present, without visible acute hemorrhage or lesion. CEREBELLUM: No edema, hemorrhage, mass, acute infarction, or inappropriate atrophy. BRAINSTEM: No edema, hemorrhage, mass, acute infarction, or inappropriate atrophy. CSF SPACES: Ventricles, cisterns, and sulci are appropriate for age. No hydrocephalus, subarachnoid hemorrhage, or mass. SKULL: Scalp hematomas present high on the right convexity. SINUSES: Limited views demonstrate no significant mucosal thickening or fluid. ORBITS: Limited views are unremarkable. OTHER: Negative. CONCLUSION: No acute disease. Dictated by: Mariella Fernandez MD on 12/11/2017 at 12:37 Approved by: Mariella Fernandez MD on 12/11/2017 at 12:37 CT CERVICAL W/O Observed: 12/11/2017 Status: F Source: [facility] 12:30 PM [place] [address] Patient: LEONARDO MACIAS Phone#: : 1940 Age: 77 Gender: F Pt. Type: ER Account: [id number] Location: [facility] Ordering: REINIER MCDONALDD Exam Date: 12/11/2017/12:21 Family Phys: MELL MCKEON Charge Code: [id number] Physician: [place] Order #: [id number] DLP Dose#: PROCEDURE: CT CERVICAL WITHOUT CONTRAST COMPARISON: None. INDICATIONS: Trauma TECHNIQUE: Multi-planar CT images were created without intravenous contrast. All CT scans at this facility use dose modulation, iterative reconstruction, and/or weight based dosing when appropriate to reduce radiation dose to as low as reasonably achievable. IV CONTRAST: No IV contrast used,ml TOTAL DOSE: 12.5 CTDIvol(mGy) FINDINGS: CRANIOCERVICAL AREA: Normal foramen magnum with no Chiari malformation. PARASPINAL AREA: Normal with no visible mass. BONES: Multilevel degenerative changes are present. There is straightening of the normal cervical lordosis. CERVICAL DISC LEVELS: C2-C3: No significant disc/facet abnormality, spinal stenosis, or foraminal stenosis. C3-C4: Bony hypertrophy is present at the left articular facet. There is narrowing of the left foramen. C4-C5: Bony hypertrophy is present at the articular facets greater on the left than the right. There is narrowing of the foramina. The disc space is narrowed. C5-C6: Bony hypertrophy is present with narrowing of the foramina bilaterally but greater on the left than the right. Disc space is narrowed. C6-C7: Bony hypertrophy is present at the articular facets. The spinal canal foramina are patent. C7-T1: No significant disc/facet abnormality, spinal stenosis, or foraminal stenosis. CONCLUSION: Continued Report - Page 2 of 2 Patient: LEONARDO MACIAS. Phone#: : 1940 Age: 77 Gender: F Pt. Type: ER Account: [id number] Location: 052 Ordering: REINIER LARA Exam Date: 12/11/2017/12:21 Family Phys: MELL Johnson LINDA Charge Code: [id number] Physician: [place] Order #: [id number] DLP Dose#: 1. Multilevel degenerative changes present. There is straightening of the normal cervical lordosis. 2. There is no evidence of acute bone abnormality. Dictated by: Mariella Fernandez MD on 12/11/2017 at 12:39 Approved by: Mariella Fernandez MD on 12/11/2017 at 12:39 EMERGENCY REPORT Observed: 12/11/2017 Status: F Source: [facility] 11:58 AM [facility] EMERGENCY ROOM REPORT NAME ACCOUNT SEX AGE ADMIT DISCHARGE PT MED. RECORD# NUMBER DATE DATE TYPE Cesar [id number] F 77 12/11/17 12/11/17 3 LEONARDO Lopez [address] ROOM: ER DATE OF : 1940 DICTATING PHYSICIAN: Reinier Lara CHIEF COMPLAINT: Fall. HISTORY OF PRESENT ILLNESS: The patient normally ambulates with a walker. She was getting out of a car just a short time ago, getting ready to go to therapy, and as she got out of the car she was waiting on a family member to bring her walker. However, she closed the door and lost her balance and fell back onto the pavement. Her family member got to her and got her into a wheelchair and brought her in here. She had no loss of consciousness. She fell back and hit the back of her head. She is complaining mainly of pain to the head but no significant neck pain. She does complain of some pain to her hips and her right knee as well as right elbow. No numbness or tingling to her extremities. No chest pain or shortness of breath. No nausea or vomiting. PAST MEDICAL HISTORY: Significant for hypertension. PAST SURGICAL HISTORY: She has had a number of previous surgeries, including appendectomy, cholecystectomy and hysterectomy. MEDICATIONS: Per medication reconciliation list. ALLERGIES: Per allergy list. SOCIAL HISTORY: She lives at home, accompanied here with family. She does not smoke or drink alcohol. REVIEW OF SYSTEMS: No chest pain. No shortness of breath. PHYSICAL EXAMINATION: This is a 77-year-old, heavy-built female who is awake and alert. She does not appear toxic. Her skin is pink, warm and dry. Head and scalp reveal an area of soft tissue swelling and some redness to the occipital area but no open areas. No tenderness to the upper or frontal scalp area. No tenderness to the neck. No facial injuries. No chest wall or back tenderness. Lungs are clear. Cardiac examination is normal. Abdomen is soft and nontender. She does have some soreness to her right elbow and some tenderness with palpation but normal range of motion. She also complains of pain over the lateral hips bilaterally and her right knee, but there is no soft tissue swelling, bruising or ecchymosis. Full range of motion is noted. No neurologic deficits. Good peripheral pulses and capillary refill. Vital signs: Blood pressure is Page 1 of 2 LEONARDO MACIAS Emergency Room Report 198/109, pulse 81, respirations 20, and temperature 98. Her oxygen saturation was 97%. DIAGNOSTIC DATA: I proceeded to get a head and cervical spine CT as well as pelvis, elbow and right knee x-rays. These showed some degenerative changes but no fractures. EMERGENCY DEPARTMENT COURSE AND TREATMENT: Discussed management with her and her family. Tylenol and ibuprofen were recommended. Follow up with family doctor in 1 to 2 days as needed, returning if symptoms worsen. DIAGNOSIS: Fall with scattered contusions. Dictated By: Reinier Lara MD 12/11/17 14:08 JOB #: [id number] Transcribed By: efra 12/12/17 08:13 Electronically signed by: HERB Lara M.D. 12/16/17 07:38 Page 2 of 2 LEONARDO MACIAS Emergency Room Report ABDOMEN LIMITED Observed: 10/30/2017 Status: F Source: [place] 10:17 AM [facility] REPOSITORY [facility] Imaging Services [facility] [place] [address] Abdomen Limited MR#: [id number] Acct: [id number] Name: LEONARDO MACIAS Rep #: [id number] : 1940 F 77 From: Delgado Oilvera MD PCP: Linda LEE,Mell Chi Status: REG CLI Study: Abdomen Limited Date of Exam: 10/30/17 Exam# [id number] Ordering Dr: Mell Mckeon MD STUDY: ABDOMINAL ULTRASOUND - RIGHT UPPER QUADRANT REASON FOR VISIT: Female, 77 years old. Elevated LFTs TECHNIQUE: Ultrasound evaluation of the right upper quadrant was performed with real-time and static kaur-scale imaging. TECHNICAL QUALITY: Limited. Examination limited by bowel gas. COMPARISON: 2014 FINDINGS: Liver: The liver measures 14.8 cm. There is normal echogenicity of the liver. The bile ducts are within normal limits. There is hepatic color flow. The direction of portal flow is hepatopetal. There is no demonstrated mass lesion. Gallbladder: The patient is status post cholecystectomy. Common Bile Duct (C.B.D.): The common bile duct measures 6 mm. Pancreas: There is nonvisualization of the pancreas. Right Kidney: Normal size of the right kidney. The right kidney measures 10.1 x 4.6 x 4.3 cm. Normal renal cortex. The right cortex measures 1.4 cm. There is no demonstrated renal mass or cyst. There is no right hydronephrosis. US/Abdomen Limited IMPRESSION: No suspicious sonographic findings, previous cholecystectomy. Pancreas not visualized Electronically Signed: Salomón Olivera MD at 8:47 EDT , Service support , CC: Mell Mckeon MD Loss Control Engineer: Signed CBC W/DIFF, AUTOMATED Collected: 10/27/2017 Status: F Source: [facility] 11:01 AM [facility] REPOSITORY TYPE CODE TESTS RESULT OUT OF RANGE REFERENCE UNITS LAB L100.1000 4.4-11.0 K/mm3 Normal WBC 9.0 LAB L100.1200 4.2-5.4 M/mm3 Low RBC 3.98 LAB L100.1300 12.0-15.0 g/dl Low HGB 11.8 LAB L100.1400 37-47 % Normal HCT 37.8 LAB L100.1500 81-99 fL Normal MCV 95.0 LAB L100.1600 27.0-32.0 pg Normal MCH 29.6 LAB L100.1700 32-36 g/gl Low MCHC 31.2 LAB L100.1810 11.6-14.6 % Normal RDW CV 13.1 LAB L100.1820 35.1-43.9 fl High RDW SD 45.6 LAB L100.1900 150-450 K/mm3 Normal PLT 259 LAB L100.2000 6.2-12.0 fl Normal MPV 10.4 LAB L100.2100 47-70 % Normal NEUT% 55.8 LAB L100.2200 19-41 % Normal LY% 32.9 LAB L100.2300 0-10 % Normal MONO% 7.8 LAB L100.2400 0-5 % Normal EO% 3.1 LAB L100.2500 0-1 % Normal BASO% 0.4 LAB L100.2550 0.0-0.9 % Normal IM GRAN % 0.000 Result Comment: IG% - Immature Granulocytes (promyelocytes, myelocytes and metamyelocytes) > 1% indicates that a LEFT SHIFT is Present. LAB L100.2620 2.0-7.7 X10 3/uL Normal Absolute Neut 5.0 LAB L100.2720 0.83-4.51 X10 3/ul Normal Absolute Lymph 2.95 Performed By: #### L100.0100 #### [facility] [address] [facility] [place], [address] COMPREHENSIVE METABOLIC Collected: 10/27/2017 Status: F Source: [facility] 11:01 AM [facility] REPOSITORY TYPE CODE TESTS RESULT OUT OF RANGE REFERENCE UNITS LAB L501.0100 74-106 mg/dL Normal GLU 82 Result Comment: Please note revised GLUCOSE reference range effective 2017. LAB L501.1000 7-18 mg/dL Normal BUN 12 LAB L501.1100 0.55-1.02 mg/dL Normal CREAT,SERUM 0.88 Result Comment: The validity of the calculated GFR AND GFRAA in patients over 70 years has not been determined. Clinical correlation is essential. LAB L501.1110 >60 mL/min Normal EST GFR 66 Result Comment: Non- GFR Calc LAB L501.1115 >60 mL/min Normal EST GFR - AA 80 Result Comment: GFR Calc LAB L501.1300 10-20 RATIO Normal BUN/CRE 13.7 LAB L501.1500 6.4-8.2 g/dL T Normal PROT 7.5 LAB L501.1800 3.2-5.0 g/dL Normal ALB 3.3 LAB L501.1950 2.2-4.2 g/dL Normal GLOB 4.2 LAB L501.2000 0.9-2.4 RATIO Low A/G 0.8 LAB L501.2200 8.5-10.1 mg/dL CA Normal 9.1 LAB L501.4100 15-37 U/L Normal AST 21 LAB L501.4305 45-117 U/L Normal ALK P 98 LAB L501.4405 13-56 U/L Normal ALT 22 LAB L501.4600 0.20-1.00 mg/dL T Normal BILI 0.20 LAB L501.5300 136-145 mmol/L NA Normal 140 LAB L501.5600 3.5-5.1 mmol/L K Normal 4.4 LAB L501.5900 98-107 mmol/L CL Normal 104 LAB L501.6100 21.0-32.0 mmol/L Normal CO2 30.0 LAB L501.6200 5-15 Normal GAP 6 Performed By: #### L500.4050, L501.9520 #### [facility] [address] [place], [address] THYROID STIM HORMONE Collected: 10/27/2017 Status: F Source: [facility] ([facility]) 11:01 AM [facility] REPOSITORY TYPE CODE TESTS RESULT OUT OF RANGE REFERENCE UNITS LAB L501.9520 0.358-3.74 uIU/mL Normal TSH 3.57 Performed By: #### L500.4050, L501.9520 #### [facility] [address] [place], [address] VITAMIN D,25 HYDROXY Collected: 10/27/2017 Status: F Source: [facility] 11:01 AM [facility] REPOSITORY TYPE CODE TESTS RESULT OUT OF REFERENCE UNITS RANGE LAB L506.1000 29.95-100.01 ng/mL Low Vitamin D 18.0 25-OH Result Comment: Vitamin D 25(OH) Status Range Deficiency <20 ng/mL (50nmol/L) Insuffciency 20 - 30 ng/mL (50 - 75 nmol/L) Sufficiency 30 - 100 ng/mL (75 - 250 nmol/L) Toxicity >100 ng/mL (>250 nmol/L) Performed By: #### L506.1000 #### [facility] [address] [place], [address] SURGERY VISIT REPORT Observed: 06/20/2017 Status: F Source: [place] 11:42 AM [facility] REPOSITORY [facility] [address] [place] [address] OFFICE VISIT Date of Service: 06/20/17 MR#: [id number] Acct: [id number] Name: LEONARDO MACIAS Rep #: [id number] : 1940 Provider: Meño Smyth MD Age/Sex: 76/F Location: [facility] Status: Signed Intake Intake Visit Reasons: left thyroid FNA extra time d/t pt needs Chief Complaint: left thyroid FNA Press Catcher Required: No Is patient in pain?: No Allergies codeine Allergy (Verified 06/20/17 10:39) Rash Penicillins Allergy (Verified 06/20/17 10:39) Swelling Sulfa (Sulfonamide Antibiotics) Adverse Reaction (Verified 06/20/17 10:39) Unknown Medications Loratadine [Claritin] 10 mg PO DAILY 06/14/14 [History Confirmed 06/09/17] Primidone [Mysoline] 50 mg PO DAILY 06/14/14 [History Confirmed 06/09/17] Primidone [Mysoline] 100 mg PO BID 06/14/14 [History Confirmed 06/09/17] Vits A,C,E/Lutein/Minerals [Ocuvite with Lutein Tablet] 1 ea PO DAILY 06/14/14 [History Confirmed 06/09/17] atenolol 25 mg tablet 25 mg PO ONCE 06/09/17 [History Confirmed 06/09/17] atorvastatin 40 mg tablet 40 mg PO QDAY 06/09/17 [History Confirmed 06/09/17] diazepam 2 mg tablet PO 06/09/17 [History Confirmed 06/09/17] furosemide 20 mg tablet 20 mg PO ONCE 06/09/17 [History Confirmed 06/09/17] multivitamin-iron 27 mg-folic acid 400 mcg-calcium and minerals tablet tab PO 06/09/17 [History Confirmed 06/09/17] potassium chloride 20 mEq oral packet 20 meq PO QDAY 06/09/17 [History Confirmed 06/09/17] Is last menstrual period known: No Post menopausal: Yes Patient : No PFSH Medical History Multiple thyroid nodules (Acute) Anemia (Acute) H/O hiatal hernia (Acute) Hypercholesteremia (Acute) Hypokalemia (Acute) HTN (hypertension) (Chronic) Surgical History Encounter for tubal ligation (Acute) H/O colonoscopy (Acute) History of laparoscopic cholecystectomy (Acute) Family History Mother CAD (coronary artery disease) Hypertension Diabetes Father Diabetes Hypertension CAD (coronary artery disease) Sister Diabetes Brother Diabetes Social History Smoking Status: Former smoker alcohol intake: current alcohol intake frequency: holidays/special occasions only HPI HPI HPI: LEONARDO MACIAS, is a 76 F who presents to the office today for ultrasound-guided fine-needle aspiration left thyroid nodule Office Procedures [id number] FNA Thyroid Performed By: Procedure performed by: Missy Details: Ultrasound guided final aspiration left thyroid nodule Timeout and informed consent was obtained. 76-year-old female was taken to the procedure room. She was placed on the table. The left neck was sterilely prepped and draped. Ultrasound was used to identify the somewhat vague superior left thyroid nodule with some slight microcalcification present. Under ultrasound guidance 1% lidocaine mixed 50-50 with 0.5% Marcaine was used as a local anesthetic. A total of 2 cc was used. Then a 23-gauge needle was used under ultrasound guidance to perform the final aspiration. 3 separate passes were performed with a 23-gauge needle. One final set of passes was performed with a 25-gauge needle. The specimen was smeared out on slides and treated with fixative. She tolerated procedure well dressings applied she was given activity and wound care instructions. The specimens were treated with fixative and sent for cytology. No apparent complications. Meño Smyth M.D., EnriqueCMalcomS. Procedure Time Out Time Out Informed consent given: No Consent signed: Yes Time out checklist: patient, procedure, site marked/identified, positioning of patient, supplies available, allergies confirmed, team agrees on procedure Time out staff in room: Yes Time out verified: Yes Time out date: 06/20/17 Time out time: 10:43 Assessment AND Plan 1. Multiple thyroid nodules E04.2 Plan The patient today seemingly has had a successful ultrasound guided final aspiration of the left thyroid. At the [facility] she previously had a aspiration which did not reveal diagnostic material. The patient will be notified of cytology results as they become available. Clinically I am suspicious of a benign result. I would then anticipate follow-up ultrasound at 1 year. I appreciate the opportunity of assisting with her surgical care. Cc: Dr. Linda Smyth M.D., Hoang.Brenda.CMalcomS. Orders Orders: Coding Level of Care Code No Charge Diagnoses Multiple thyroid nodules E04.2 06/20/17 1142 <Electronically signed by Meño Smyth MD> Date eMño Smyth MD Cosigner Signature: Date (if applicable) CC: Mell Mckeon MD ASPIRATION (SLIDES Observed: 06/20/2017 Status: F Source: [facility] ONLY) 9:50 AM [facility] REPOSITORY Patient: LEONAROD MACIAS : 1940 (76/F) Acct Num: [id number] Phys: Haja LEE,Meño Unit Num: [id number] Loc: [facility] Specimen: [id number] Received: 06/22/1715 Spec Type: ASPIRATION TISSUES TISSUES: Thyroid gland, NOS COMMENT Correlation with clinical, radiologic findings and appropriate follow up are necessary. Please make reference to previous cytology ([id number]) left thyroid nodule, ultrasound guided FNA with diagnosis of nondiagnostic specimen. CYTOLOGY GROSS Received are eight smears labeled with the patient's name and designated per the requisition as left thyroid. Submitted for staining. / 06/22/17 TC:5 CPT: 93344 CYTOLOGY STUDY Slides are reviewed. The specimen is adequate for evaluation. The specimen consists of benign follicular cells, small amount of colloid and numerous degenerated cells most likely degenerated follicular cells. DIAGNOSIS CYTOLOGY Left thyroid nodule, FNA (smears): Consistent with benign follicular nodule.. See cytology study and comment. SJ:boy 06/24/17 HEADER OPERATION: Left thyroid FNA PRE-OP DIAGNOSIS: Left thyroid nodule TISSUE SUBMITTED: Left thyroid slides Signed Sina Echeverria 06/24/17 <signature on file> Performed By: #### PASPS #### [facility] [address] [place] [address]. [place], [address] SURGERY VISIT REPORT Observed: 06/09/2017 Status: F Source: [place] 1:49 PM [facility] REPOSITORY [facility] [address] [address] OFFICE VISIT Date of Service: 06/09/17 MR#: [id number] Acct: [id number] Name: LEONARDO MACIAS Rep #: [id number] : 1940 Provider: Meño Smyth MD Age/Sex: 76/F Location: [facility] Status: Signed Intake Vital Signs06/09/17 Height 5 ft 4 in 06/09/17 Weight: 209 lb 06/09/17 Body Mass Index (BMI) 35.9 Intake Visit Reasons: Thyroid Nodule/U/S [facility] 05/19 Allergies codeine Allergy (Verified 06/09/17 13:18) Rash Penicillins Allergy (Verified 06/09/17 13:18) Swelling Sulfa (Sulfonamide Antibiotics) Adverse Reaction (Verified 06/09/17 13:18) Unknown Medications Loratadine [Claritin] 10 mg PO DAILY 06/14/14 [History Confirmed 06/09/17] Primidone [Mysoline] 50 mg PO DAILY 06/14/14 [History Confirmed 06/09/17] Primidone [Mysoline] 100 mg PO BID 06/14/14 [History Confirmed 06/09/17] Vits A,C,E/Lutein/Minerals [Ocuvite with Lutein Tablet] 1 ea PO DAILY 06/14/14 [History Confirmed 06/09/17] atenolol 25 mg tablet 25 mg PO ONCE 06/09/17 [History Confirmed 06/09/17] atorvastatin 40 mg tablet 40 mg PO QDAY 06/09/17 [History Confirmed 06/09/17] diazepam 2 mg tablet PO 06/09/17 [History Confirmed 06/09/17] furosemide 20 mg tablet 20 mg PO ONCE 06/09/17 [History Confirmed 06/09/17] multivitamin-iron 27 mg-folic acid 400 mcg-calcium and minerals tablet tab PO 06/09/17 [History Confirmed 06/09/17] potassium chloride 20 mEq oral packet 20 meq PO QDAY 06/09/17 [History Confirmed 06/09/17] [facility] Medical History Multiple thyroid nodules (Acute) Anemia (Acute) H/O hiatal hernia (Acute) Hypercholesteremia (Acute) Hypokalemia (Acute) HTN (hypertension) (Chronic) Surgical History Encounter for tubal ligation (Acute) H/O colonoscopy (Acute) History of laparoscopic cholecystectomy (Acute) Family History Mother CAD (coronary artery disease) Hypertension Diabetes Father Diabetes Hypertension CAD (coronary artery disease) Sister Diabetes Brother Diabetes Social History Smoking Status: Former smoker alcohol intake: current alcohol intake frequency: holidays/special occasions only HPI HPI HPI: LEONARDO MACIAS, is a 76 F who presents to the office today for surgical consultation regarding left thyroid nodule. 76-year-old female. She states that she had a very severe chronic cough and sneezing. To help evaluate this Dr. Mckeon pursued her with a thyroid ultrasound.. This was performed at the [facility]. The right lobe measured 4.3 x 1.4 cm. No nodules. The left lobe measures 4.1 x 1.3 x 1.4 cm. There is a 1.4 x 1 x 1 cm hypoechoic solid nodule in the midportion of the left lobe. The isthmus was not remarkable. No adenopathy. The patient had a attempt at a ultrasound guided final aspiration of this nodule her radiologist on May 20, 2017. Cytology is not diagnostic. The patient is being referred for surgical consultation. The patient has a essential tremor. She states that gamma knife treatment helped her slightly. She has never had radiation treatment to the head neck. She denies personal or family history of thyroid cancer. She has not had any hoarseness. ROS General General: Yes weight change and fatigue; no appetite, colon cancer, breast cancer or weakness HEENT HEENT: Yes eye injury and eye surgery; no difficulty swallowing, swollen glands or hoarseness Endo Endocrine: No thyroid disease, diabetes mellitus, thyroid cancer, Hair loss, heat intolerance or cold intolerance Skin Skin: No rash or changing moles Breast Breast: No left breast lump, right breast lump, nipple discharge, breast pain, abnormal mammogram, abnormal US or breast enlargement Musc Musculoskeletal: No back problems, arthritis, rheumatoid arthritis, gout or joint pain Cardio Cardiovascular: Yes high blood pressure; no murmur, pacemaker, heart disease, atrial fibrillation, heart attack, heart stent, palpitations, shortness of breat with exertion or chest pain Psych Psychiatric: Yes depression and anxiety; no hearing voices Resp Respiratory: Yes cough, No shortness of breath, No sleep apnea, No COPD, No asthma, No emphysema, No wheezing Gastro Gastrointestinal: Yes abdominal pain, Yes diarrhea, Yes acid reflux, No nausea or vomiting, No constipation, No blood in stool, No hemorrhoids, No ulcers, No gallbladder problem, No black,tarry stools Jeremy Hematologic: No blood thinners, No blood disorders, No bleeding, No anemia, No blood clots Neuro Neurologic: Yes numbness, Yes tingling, No system reviewed and no additional complaints, except as docu, No as per HPI, No abnormal walking, No abnormal hearing, No abnormal movements, No abnormal speech, No behavioral changes, No burning sensations, No confusion, No seizure-like activity, No unsteadiness, No dizziness, No localized weakness, No frequent falls, No headache(s), No lack of coordination, No loss of vision, No memory loss, No other visual disturbances, No radiating pain, No restless legs, No sensory deficit, No fainting, No tremor(s), No weakness, No other Exam Neck Neck mass: No Thyroid: thyroid normal, nontender Carotids: normal carotid upstroke, no bruits Lymphatic: no lymphadenopathy noted Other: [place] is negative Chest Breast Palpation: No nipple discharge Resp Effort AND Inspection: normal respiratory effort Auscultation: clear to auscultation bilaterally Cardio Rate: regular rate Rhythm: regular rhythm Heart Sounds: no murmurs Assessment AND Plan Problems 1. Multiple thyroid nodules E04.2 Plan 76-year-old female who has a left thyroid nodule. She has a tremor which will make access more challenging. I am offering her an office repeat attempt at ultrasound-guided fine aspiration left thyroid. We will utilize a various set of needles. She has had an opportunity to ask and have questions answered. We will schedule and set an appropriate amount of time aside to assist her. I very much appreciate the kind referral and look forward to assisting with her surgical needs. Cc: Dr. Linda Smyth M.D., F.A.C.S. Medications Discontinued: hydrocodone-acetaminophen 5-325 mg Discontinued Reason:1 - 2 tabs PO Q4H PRN PRN Pain Pt no longer taking Coding Level of Care Code Off vis,new,level 2 Diagnoses Multiple thyroid nodules E04.2 06/09/17 1349 <Electronically signed by Meño Smyth MD> Date Meño Smyth MD Cosigner Signature: Date (if applicable) CC: Mell Mckeon MD US THYROID BIOPSY Observed: 05/19/2017 Status: F Source: [place] 1:36 PM [facility] REPOSITORY [facility] Imaging Services [address] [place] [address] [place] [address] US Thyroid Biopsy MR#: [id number] Acct: [id number] Name: LEONARDO MACIAS Rep #: [id number] : 1940 F 76 From: Michael Wynn MD PCP: Mell Mckeon MD, Chi Status: REG CLI Study: US Thyroid Biopsy Date of Exam: 05/19/17 Exam# [id number] Ordering Dr: Mell Mckeon MD PROCEDURE: ULTRASOUND GUIDED LEFT THYROID FNA/BIOPSY. DATE: May 19, 2017. INDICATION: Female, 76 years old. Left thyroid nodule PHYSICIAN: Michael Wynn M.D. MEDICATIONS: 2% lidocaine administered subcutaneously for local anesthesia. ACCESS SITE: Left - anterior approach. NEEDLE: 25-gauge FNA needle. SPECIMEN: Multiple FNA specimen collected and given to pathology. EBL: None. COMPLICATIONS: None immediate. PROCEDURE: The risks, benefits, and alternatives to the procedure were explained to the patient. The specific risk of hemorrhage requiring further treatment or intervention was detailed and accepted. Written informed consent was obtained. The patient was brought into the ultrasound room and placed in the supine position on the stretcher. An appropriate entry site was identified. The overlying skin was prepped and draped in the usual sterile fashion. 2% lidocaine was administered subcutaneously for local anesthesia. Under ultrasound guidance, a 25-gauge FNA needle was advanced into the lesion. Aspiration was performed and the needle was withdrawn. A total of 4 passes were performed with specimen collected and given to the pathologist who was present during the procedure. Hemostasis was achieved with manual compression. Repeat ultrasound images of the biopsy area was performed which demonstrated no gross bleeding or hematoma. An antibiotic ointment dressing was placed and the patient was given an icepack. The patient tolerated the procedure well without immediate complications. The patient was discharged in stable condition. US/US Thyroid Biopsy IMPRESSION: Successful ultrasound-guided left thyroid nodule FNA/biopsy, as described above. Electronically Signed: Michael Wynn MD at 15:34 EDT Tel [phone], Service support , CC: Mell Mckeon MD Loss Control Engineer: Signed ASP RADIOLOGY (FLUID) Observed: 05/19/2017 Status: F Source: [place] 12:00 AM [facility] REPOSITORY Patient: LEONARDO MACIAS : 1940 (76/F) Acct Num: [id number] Phys: Linda LEE,Mell Delvalle Unit Num: [id number] Loc: US Specimen: [id number] Received: 05/19/17 - 1538 Spec Type: ASP OUT TISSUES TISSUES: Thyroid gland, NOS COMMENT The specimen is evaluated at the time of left thyroid FNA by Dr. Echeverria. Immediate Evaluation = Set #1 Follicular cells not seen. Set #2 Follicular cells not seen. Correlation with clinical, radiologic findings and appropriate follow up are necessary. Rebiopsy is suggested if clinically indicated. CYTOLOGY GROSS Set #1 two passes - Received is 0.3 ml of bloody fluid labeled with the patient's name, and designated left thyroid. Six imprints and four paps are made from the submitted fluid and the rest is added to CytoLyt for cell block and cytospin preparation. Submitted for cytology study. Set #2 one pass - Received is 0.2 ml of bloody fluid labeled with the patient 's name, and designated left thyroid. Four imprints and three paps are made from the submitted fluid and the rest is added to CytoLyt for cell block and cytospin preparation. Submitted for cytology study. / SJ:boy 05/19/17 TC: Cannot code CPT: 53382, 49713, 89780, 58046, 52139 CYTOLOGY STUDY Slides are reviewed. The specimen is nondiagnostic. Follicular cells are not seen. The specimen almost entirely consists of blood, rare lymphocytes and one giant cell. DIAGNOSIS CYTOLOGY Left thyroid nodule, ultrasound-guided FNA (smears, cytospin and cell block): Nondiagnostic specimen. See cytology study and comment. HEADER OPERATION: Ultrasound-guided thyroid FNA PRE-OP DIAGNOSIS: Left thyroid nodule TISSUE SUBMITTED: Left thyroid nodule FNA Signed Sina Echeverria 05/20/17 <signature on file> Performed By: #### PASPIG #### [facility] [address], [address] AORTA Observed: 05/04/2017 Status: F Source: [place] 8:35 AM [facility] REPOSITORY [facility] Imaging Services [address] [place] [address] Aorta MR#: [id number] Acct: [id number] Name: LEONARDO MACIAS Rep #: [id number] : 1940 F 76 From: Michael Wynn MD PCP: Mell Mckeon MD, Chi Status: REG CLI Study: Aorta Date of Exam: 05/04/17 Exam# [id number] Ordering Dr: Mell Mckeon MD PROCEDURES: ULTRASOUND AORTA REASON FOR EXAM: Female, 76 years old. History of abdominal aortic aneurysm. TECHNIQUE: Ultrasound evaluation of the aorta was performed with real-time and static kaur-scale imaging. COMPARISON: Comparison is made with prior CT scan the abdomen dated August 08, 2016. FINDINGS: There is obscuration of the abdominal aorta by overlying bowel gas Aorta measures: Proximal 3.1 cm. Middle 2.9 cm. Distal 1.5 cm. Aorta measure transversely: Proximal 2.7 cm. Middle 2.4 cm. Distal 1.4 cm. Right iliac artery measures: 1.8 cm. Right iliac artery measure transversely: 1.0 cm. Left iliac artery measures: 1.8 cm. Left iliac artery measure transversely: 1.0 cm. There is no demonstrated aneurysm.. US/Aorta IMPRESSION: There is no evidence of abdominal aortic aneurysm. Electronically Signed: Michael Wynn MD at 15:38 EST Tel [phone], Service support , CC: Mell Mckeon MD Loss Control Engineer: Signed THYROID Observed: 05/04/2017 Status: F Source: [place] 8:26 AM [facility] REPOSITORY [facility] Imaging Services [address] [place] [address] Thyroid MR#: [id number] Acct: [id number] Name: LEONARDO MACIAS Rep #: [id number] : 1940 F 76 From: Michael Wynn MD PCP: Mell Mckeon MD, Chi Status: REG CLI Study: Thyroid Date of Exam: 05/04/17 Exam# [id number] Ordering Dr: Mell Mckeon MD STUDY: THYROID ULTRASOUND REASON FOR EXAM: Female, 76 years old. Thyroid nodule. TECHNIQUE: Ultrasound evaluation of the thyroid was performed with real-time and static kaur-scale imaging. COMPARISON: None. FINDINGS: RIGHT LOBE: The right lobe of the thyroid gland measures 4.3 cm x 1.4 cm x 1.1 cm. There is a homogeneous echotexture. There are no demonstrated solid, cystic or complex lesions. LEFT LOBE: The left lobe of the thyroid gland measures 4.1 cm x 1.3 cm x 1.4 cm. There is a homogeneous echotexture. There is a 1.4 cm x 1 cm x 1 cm hypoechoic solid nodule in the midportion of the left lobe of the thyroid. ISTHMUS: The isthmus measures 2.0 mm. The regional lymph nodes are normal. US/Thyroid IMPRESSION: 1.4 cm x 1 cm x 1 cm solid nodule in the midportion of the left lobe. A biopsy is recommended. Electronically Signed: Michael Wynn MD at 15:11 EST Tel [phone], Service support , CC: Mell Mckeon MD Loss Control Engineer: Signed CBC W/DIFF, AUTOMATED Collected: 04/28/2017 Status: F Source: [place] 12:13 PM [facility] REPOSITORY TYPE CODE TESTS RESULT OUT OF RANGE REFERENCE UNITS LAB L100.1000 4.4-11.0 K/mm3 Normal WBC 7.0 LAB L100.1200 4.2-5.4 M/mm3 Low RBC 4.02 LAB L100.1300 12.0-15.0 g/dl Low HGB 11.9 LAB L100.1400 37-47 % Normal HCT 38.1 LAB L100.1500 81-99 fL Normal MCV 94.8 LAB L100.1600 27.0-32.0 pg Normal MCH 29.6 LAB L100.1700 32-36 g/gl Low MCHC 31.2 LAB L100.1810 11.6-14.6 % Normal RDW CV 13.0 LAB L100.1820 35.1-43.9 fl High RDW SD 44.8 LAB L100.1900 150-450 K/mm3 Normal PLT 265 LAB L100.2000 6.2-12.0 fl Normal MPV 10.2 LAB L100.2100 47-70 % Normal NEUT% 47.0 LAB L100.2200 19-41 % Normal LY% 39.1 LAB L100.2300 0-10 % Normal MONO% 8.8 LAB L100.2400 0-5 % Normal EO% 4.6 LAB L100.2500 0-1 % Normal BASO% 0.4 LAB L100.2550 0.0-0.9 % Normal IM GRAN % 0.100 Result Comment: IG% - Immature Granulocytes (promyelocytes, myelocytes and metamyelocytes) > 1% indicates that a LEFT SHIFT is Present. LAB L100.2620 2.0-7.7 X10 3/uL Normal Absolute Neut 3.3 LAB L100.2720 0.83-4.51 X10 3/ul Normal Absolute Lymph 2.74 Performed By: #### L100.0100 #### [facility] [place], [address] COMPREHENSIVE METABOLIC Collected: 04/28/2017 Status: F Source: [facility] [facility] 12:13 PM [facility] REPOSITORY TYPE CODE TESTS RESULT OUT OF RANGE REFERENCE UNITS LAB L501.0100 74-106 mg/dL Normal GLU 90 Result Comment: Please note revised GLUCOSE reference range effective 2017. LAB L501.1000 7-18 mg/dL Normal BUN 16 LAB L501.1100 0.55-1.02 mg/dL Normal CREAT,SERUM 0.84 Result Comment: The validity of the calculated GFR AND GFRAA in patients over 70 years has not been determined. Clinical correlation is essential. LAB L501.1110 >60 mL/min Normal EST GFR 70 Result Comment: Non- GFR Calc LAB L501.1115 >60 mL/min Normal EST GFR - AA 85 Result Comment: GFR Calc LAB L501.1300 10-20 RATIO Normal BUN/CRE 19.1 LAB L501.1500 6.4-8.2 g/dL T Normal PROT 7.5 LAB L501.1800 3.2-5.0 g/dL Normal ALB 3.5 LAB L501.1950 2.2-4.2 g/dL Normal GLOB 4.0 LAB L501.2000 0.9-2.4 RATIO Normal A/G 0.9 LAB L501.2200 8.5-10.1 mg/dL CA Normal 8.7 LAB L501.4100 15-37 U/L Normal AST 25 LAB L501.4305 45-117 U/L Normal ALK P 101 LAB L501.4405 13-56 U/L Normal ALT 24 Result Comment: Please note revised ALT reference range effective 2017. LAB L501.4600 0.20-1.00 mg/dL Normal T BILI 0.20 LAB L501.5300 136-145 mmol/L Normal NA 140 LAB L501.5600 3.5-5.1 mmol/L Normal K 4.4 LAB L501.5900 98-107 mmol/L Normal CL 104 LAB L501.6100 21.0-32.0 mmol/L Normal CO2 29.0 LAB L501.6200 5-15 Normal GAP 7 Performed By: #### L500.4050, L501.9520 #### [facility] [address] [place], [address] THYROID STIM HORMONE Collected: 04/28/2017 Status: F Source: [place] (TSH) 12:13 PM [facility] REPOSITORY TYPE CODE TESTS RESULT OUT OF RANGE REFERENCE UNITS LAB L501.9520 0.358-3.74 uIU/mL Normal TSH 3.48 Performed By: #### L500.4050, L501.9520 #### [facility] [address] [place], [address] VITAMIN D,25 HYDROXY Collected: 04/28/2017 Status: F Source: [place] 12:13 PM [facility] REPOSITORY TYPE CODE TESTS RESULT OUT OF RANGE REFERENCE UNITS LAB L506.1000 19.95-100.01 ng/mL Normal Vitamin D 22.8 25-OH Result Comment: Vitamin D 25(OH) Status Range Deficiency <20 ng/mL (50nmol/L) Insuffciency 20 - 30 ng/mL (50 - 75 nmol/L) Sufficiency 30 - 100 ng/mL (75 - 250 nmol/L) Toxicity >100 ng/mL (>250 nmol/L) Performed By: #### L506.1000 #### [facility] [address] [place], [address] ALLERGIES ALLERGIES DATE TYPE / CODE NAME / CODE REACTION SEVERITY SOURCE 06/20/2017 Drug Penicillins/N16246 Swelling Unknown [place] Allergy/416 0476(RXNORM) Community 558635([facility] ED CT) Repository 06/20/2017 Drug Sulfa (Sulfonamide Unknown Unknown [place] Allergy/416 Antibiotics)/F0010 Community 355848(SNOM 66334(RXNORM) [facility] ED CT) Repository 06/20/2017 Drug codeine/[id number] Rash Unknown [place] Allergy/416 (RXNORM) Community 466206([facility] ED CT) Repository 01/12/2014 Drug SULFA (SULFONAMIDE SWELLING [facility] Class/91115 ANTIBIOTICS) Main [place] 1003(SNOMED Repository CT) 10/12/2012 DRUG CODEINE GI UPSET [facility] INGREDI/419 [place] 497389(SNOM Repository ED CT) 10/12/2012 Drug PENICILLINS UNKNOWN [facility] Class/03695 [facility] [place] 1003(SNOMED Repository CT) Drug SULFA Moderate Harvinder Pomerene Allergy/416 (sulfonamide)/0000 ([facility] 037660(SNOM 0022(RXNORM) Modifier) Hospital ED CT) (Qualifier Repository Value) Drug PENICILLINS Moderate Harvinder Pomerene Allergy/416 (CLASS)/97777809(R ([facility] 543540(SNOM XNORM) Modifier) Hospital ED CT) (Qualifier Repository Value) Drug CODEINE Moderate Harvinder [place] Allergy/416 SULFATE/88324875(R ([facility] 269806(SNOM XNORM) Modifier) Hospital ED CT) (Qualifier Repository Value) ENCOUNTERS ENCOUNTERS ADMIT/DISCHARGE ACCOUNT ADMITTING ENCOUNTER LOCATION SOURCE NUMBER CLASS 02/05/2018 [id number] [facility] ing:LABSPEC Repository 02/01/2018 [id number] [facility] ing:PSN Repository 01/14/2018/01/19/20 [id number] Ambulatory [address] Repository 01/07/2018/02/06/20 [id number] MELL MCKEON MD [address] Repository 12/11/2017/12/12/[id number] MARCO REINIER Emergency Buildin[address] [place] [address] C oom: ERBed: D [facility] Repository 10/30/2017 [id number] [facility] ing:US Repository 10/28/2017/01/07/20 [id number] MELL MCKEON MD [address] Repository 10/27/2017 [id number] [facility] ing:POLAB3 Repository 06/22/2017 [id number] [facility] ing:LABSPEC Repository 06/20/2017/06/21/19 [id number] Ambulatory BMSBuilding:B [place] [address] [facility] Repository 06/18/2017 [id number] Ambulatory BMSBuilding:B [place].[facility] Repository 06/09/2017/06/10/19 [id number] Ambulatory BMSBuilding:B [place] [address] [facility] Repository 05/19/2017 [id number] Ambulatory [facility] Hospital ing:US Repository 05/04/2017 [id number] Ambulatory [facility] ing:US Repository 04/28/2017 [id number] [facility] ing:POLAB3 Repository 04/28/2017 [id number] [facility] ing:POLAB3 Repository PAYERS PAYERS ENCOUNTER GUARANTOR PAYER SUBSCRIBER SOURCE 02/05/2018 LEONARDO J Primary LEONARDO J [place] [id number] Insurance:MEDICARE MCCLOUDDOB: [facility] PART A BPolicy Number: [id number], [id number] [place]ository [place] [address]Nhy: Date:2018-02-05 () 02/05/2018 Secondary LEONARDO J [place] Insurance:CHAMPVAPolic MCCLOUDDOB: Community y Number: [id number] Hospital [id number] Repository Date:3159-97-65[address], [place] [address]RT: 02/05/2018 Tertiary NOT GIVENUNK [place] Insurance:SELF PAY [facility] Number: Effective Repository Date:2018-02-05 02/01/2018 LEONARDO J Primary LEONARDO J [place] [id number] Insurance:MEDICARE MCCLOUDDOB: [facility] PART A BPolicy Number: [id number] [facility], [id number] [place]ository [place] [address]Wbq: Date:2018-02-01 () 02/01/2018 Secondary LEONARDO J [place] [facility] MCCLOUDDOB: Community y Number: [id number] Hospital [id number] Repository Date:5183-23-71[address]L, [place] [address]WX: 02/01/2018 Tertiary NOT GIVENUNK [place] Insurance:SELF PAY [facility] Number: Effective Repository Date:2018-02-01 01/07/2018 LEONARDO J Primary LEONARDO J Harvinder [place] MCCLOUDDOB: Insurance:MEDICARE MCCLOUDDOB: [facility] [id number] RECURRING REFERENCE [id number] Number: DMITRIY Repository [facility], [id number] [place] Date:Plan Name:[facility] [id number]: () 01/07/2018 Secondary LEONARDO Castillone Insurance:[facility] MEDIC[facility] HMO [id number] [place] [address] LEDLIGIA Repository Number: [place], [id number] [place] [id number] Date: 12/11/2017 LEONARDO J Primary Insurance:[facility] LEONARDO J Harvinder Pomerene [facility]: MEDICARE MCCLOUDDOB: [facility] [id number] [place] [address] Number: DMITRIY Repository [facility], [id number] [place] Date:Plan Name:[facility] [id number]: () 12/11/2017 Secondary LEONARDOARIN [place] Pomerene Insurance[facility] [id number] Hospital Number: DMITRIY Repository [id number] [facility], Date:Plan Name:[facility] [id number] 10/30/2017 LEONARDO J Primary LEONARDO J [place] [id number] Insurance:MEDICARE MCCLOUDDOB: [facility] PART A BPolicy Number: [id number] [facility], [id number] [place]ository [place] [address]Qey: Date:2017-10-27 () 10/30/2017 Secondary LEONARDO J [place] Insurance:[facility]: [facility] y Number: [id number] Hospital [id number] Repository Date:3605-48-11[address], [place] [address]AA: 10/30/2017 Tertiary NOT GIVENUNK [place] Insurance:SELF PAY [facility] Hospital Number: Effective Repository Date:2017-10-27 10/28/2017 LEONARDO J Primary LEONARDO J Harvinder [place] MCCLOUDDOB: Insurance:MEDICARE MCCLOUDDOB: [facility] [id number] [facility]: [facility] Repository [place], [id number] [place] Date:Plan Name:[facility] [id number]: () 10/28/2017 Secondary LEONARDO J Harvinder [place] Insurance: MCCLOUDDOB: [facility] MEDICARE HMO [id number] [facility] Repository Number: [place], [id number] [place] [id number] Date: 10/27/2017 LEONARDO J Primary LEONARDO J [place] [id number] Insurance:MEDICARE [facility]DDOB: [facility] PART A BPolicy Number: [id number] [facility], [id number] [place]ository [place] [address]Fld: Date:2017-10-27 (HP) 10/27/2017 Secondary LEONARDO J [place] [facility]: Community y Number: [id number] Hospital [id number] Repository Date:5109-26-92[address], [place] [address]XO: 10/27/2017 Tertiary NOT GIVENUNK [place] Insurance:SELF PAY [facility] Number: Effective Repository Date:2017-10-27 06/22/2017 LEONARDO J Primary LEONARDO J [place] [id number] Insurance:MEDICARE MCCLOUDDOB: [facility] PART A BPolicy Number: [id number] Health [facility], [id number] Repository [place] [address]Zet: Date:2017-06-22 () 06/22/2017 Secondary LEONARDO J [place] [facility]: Community y Number: [id number] Hospital [id number] Repository Date:5299-38-15[address], [place] [address]HK: 06/22/2017 Tertiary NOT GIVENUNK [place] Insurance:SELF PAY [facility] Number: Effective Repository Date:2017-06-22 06/20/2017 LEONARDO J Primary LEONARDO J [place] [id number] Insurance:MEDICARE MCCLOUDDOB: Community [place] PART A BPolicy Number: [id number] [facility], [id number] Repository [place] [address]Vtg: Date:2017-06-17 () 06/20/2017 Secondary LEONARDO J [place] Insurance:CHAMPVAPolic MCCLOUDDOB: Community y Number: [id number] Hospital [id number] Repository Date:0444-18-72V[address], [place] [address]TS: 06/20/2017 Tertiary NOT GIVENUNK [place] Insurance:SELF PAY [facility] Number: Effective Repository Date:2017-06-17 06/18/2017 LEONARDO J Primary LEONARDO J [place] [id number] Insurance:MEDICARE MCCLOUDDOB: Community [place] PART A BPolicy Number: [id number] Health [facility], [id number] Repository [place] [address]Vme: Date:2017-06-09 () 06/18/2017 Secondary LEONARDO J [place] Insurance:CHAMPVAPolic MCCLOUDDOB: Community y Number: [id number] Hospital [id number] Repository Date:7133-79-15[address], [place] [address]RF: 06/18/2017 Tertiary NOT GIVENUNK [place] Insurance:SELF PAY [facility] Number: Effective Repository Date:2017-06-09 06/09/2017 LEONARDO J Primary LEONARDO J [place] [id number] Insurance:MEDICARE MCCLOUDDOB: Community [place] PART A BPolicy Number: [id number] Health [facility], [id number] Repository [place] [address]Ipx: Date:2017-05-29 () 06/09/2017 Secondary LEONARDO J [place] Insurance:CHAMPVAPolic MCCLOUDDOB: Community y Number: [id number] Hospital [id number] Repository Date:0480-63-07[address]LM, [place] [address]EG: 06/09/2017 Tertiary NOT GIVENUNK [place] Insurance:SELF PAY [facility] Number: Effective Repository Date:2017-05-29 05/19/2017 Leonardo J Primary Leonardo J [place] [id number] Insurance:MEDICARE MccloudDOB: Community [place] PART A BPolicy Number: [id number] Health [facility], [id number] Repository [place] [address]Sya: Date:2017-05-08 () 05/19/2017 Secondary Leonardo J [place] [facility]AP[facility] MccloudDOB: Community y Number: [id number] Hospital [id number] Repository Date:2937-08-74[address]KCZDN, [place] [address]MG: 05/19/2017 Tertiary NOT GIVENUNK [place] Insurance:SELF PAY [facility] Number: Effective Repository Date:2017-05-08 05/04/2017 Leonardo J Primary Leonardo J [place] [id number] Insurance:MEDICARE MccloudDOB: Community [place] PART A BPolicy Number: [id number] [facility], [id number] Repository [place] [address]Rko: Date:2017-04-28 () 05/04/2017 Secondary Leonardo J [place] Insurance:CHAMPVAPolic MccloudDOB: Community y Number: [id number] Hospital [id number] Repository Date:6431-71-49[address]QL, [place] [address]RO: 05/04/2017 Tertiary NOT GIVENUNK [place] Insurance:SELF PAY [facility] Number: Effective Repository Date:2017-04-28 04/28/2017 Leonardo J Primary Leonardo J [place] [id number] Insurance:MEDICARE MccloudDOB: Community [employer] PART A BPolicy Number: [id number] [facility] [id number] [place] [address]Enh: Date:2017-04-28 () 04/28/2017 Secondary Leonardo J [place] Insurance:CHAMPVAPolic MccloudDOB: Community y Number: [id number] Hospital [id number] Repository Date:4395-49-36[address]JRW, [place] [address]JQ: 04/28/2017 Tertiary NOT GIVENUNK [place] Insurance:SELF PAY [facility] Number: Effective Repository Date:2017-04-28 04/28/2017 Leonardo J Primary Leonardo J [place] [id number] Insurance:MEDICARE MccloudDOB: Community [employer] PART A BPolicy Number: [id number] County Hospital [id number] [place], [place] [address]Uns: Date:2017-04-28 () 04/28/2017 Secondary Leonardo J [place] Insurance:CHAMPVAPolic MccloudDOB: Community y Number: [id number] Hospital [id number] Repository Date:4966-02-29[address]QPIQB, [place] [address]ND: 04/28/2017 Tertiary NOT GIVENUNK [place] Insurance:SELF PAY [facility] District Number: Effective Repository Date:2017-04-28
== END ==
PROVIDERS: Family Provider Family Medicine Geriatric Medicine; PCP Family Medicine Geriatric Medicine; Referring Provider Family Medicine Geriatric Medicine; Visit Provider Family Medicine Geriatric Medicine
DX: R68.83 Chills (without fever) (principal)
CPT/HCPCS: 87633

== ENCOUNTER → 2018-02-05 12:34 | Outpatient (CLI) | payer MEDICARE, OTHER, SELFPAY ==
[2018-02-05 13:44] LABS: Basophil% 0.2 % (0-1); Hematocrit 40.2 % (37-47); Hemoglobin 12.7 g/dl (12.0-15.0); Mean Corp Hgb Conc 31.6 g/gl (32-36); Mean Corpuscular Hgb 30.2 pg (27.0-32.0); Mean Corpuscular Volume 95.7 fL (81-99); Platelet Count 362 K/mm3 (150-450); RBC Distribution Width CV 14.2 % (11.6-14.6); RBC Distribution Width SD 49.3 fl (35.1-43.9)
[2018-02-05 13:46] LABS: POSITIVE COUNT NO; POSITIVE DIFFERENTIAL NO
[2018-02-05 13:47] LABS: Eosinophils% 0.4 % (0-5); Lymphocyte % 18.4 % (19-41); Monocyte% 4.9 % (0-10); Neutrophil % 75.9 % (47-70); POSITIVE MORPHOLOGY NO
[2018-02-05 13:48] LABS: Absolute Lymphocyte Count 2.39 X10^3/ul (0.83-4.51); Absolute Neutrophil Count 9.9 X10^3/uL (2.0-7.7); Basophil# 0.02 X10^3/uL; Eosinophil# 0.05 X10^3/uL; Lymphocyte # 2.39 X10^3/ul (4.0); Monocyte# 0.64 X10^3/uL; Neutrophil # 9.87 X10^3/uL (2.7-7.7)
[2018-02-05 13:56] LABS: Anion Gap 8 (5-15); BUN 28 mg/dL (7-18); BUN/Creat Ratio 25.5 RATIO (10-20); Calcium,Total 8.5 mg/dL (8.5-10.1); Chloride 101 mmol/L (98-107); EST Glomerular Filtration Rate 51 mL/min (>60); Est Glom Filt Rate - Afr Amer 62 mL/min (>60); Glucose 127 mg/dL (74-106); Potassium 4.6 mmol/L (3.5-5.1); Sodium Level 138 mmol/L (136-145)
--- OUTSIDE RECORDS SUMMARY | 2018-04-02 11:26 | XMS RPT_ITS ---
:1940 Author Organization OHIP Support Name Relationship Address Phone R Unavailable Unavailable Unavailable ARYA, ELVIA Unavailable [address] + [place] [address] R Unavailable Unavailable Unavailable ARYA, ELVIA Unavailable [address] + [place] [address] NOT GIVEN Unavailable Unavailable Unavailable ARYA, ELVIA Unavailable REGULA WILBER + NOT GIVEN Unavailable Unavailable Unavailable KOENIG, ELVIA Unavailable REGULA WILBER + R Unavailable Unavailable Unavailable ARYA, ELVIA Unavailable [address] + [place] [address] NOT GIVEN Unavailable Unavailable Unavailable KOENIG, ELVIA Unavailable REGULA WILBER + R Unavailable Unavailable Unavailable ARYA, ELVIA Unavailable [address] + [place] [address] R Unavailable Unavailable Unavailable ARYA, ELVIA Unavailable [address] + [place] [address] R Unavailable Unavailable Unavailable ARYA, ELVIA Unavailable [address] + [place] [address] R Unavailable Unavailable Unavailable ARYA, ELVIA Unavailable [address] + [place] [address] R Unavailable Unavailable Unavailable ARYA, ELVIA Unavailable [address] + [place] [address] R Unavailable Unavailable Unavailable ARYA, ELVIA Unavailable [address] + [place] [address] R Unavailable Unavailable Unavailable ARYA, ELVIA Unavailable [address] + [place] [address] R Unavailable Unavailable Unavailable ARYA, ELVIA Unavailable [address] + [place] [address] R Unavailable Unavailable Unavailable ELVIA KOENIG Unavailable [address] + [place] [address] Care Team Providers Name Role Phone MELL [...] R60.9 - Edema, Linda, Mell Chi Active [place] unspecified / Community R60.9(ICD-10) Hospital Repository 02/01/2018 Unknown R68.83 - Chills Linda, Mell Chi Active [place] (without fever) / Community R68.83(ICD-10) Hospital Repository 10/28/2017 Admitting Unspecified MELL MCKEON MD Active Harvinder [place] Diagnosis abnormalities of [facility] gait and mobility / Hospital R269(ICD-10) Repository 10/28/2017 Principle Unspecified MELL MCKEON MD Active Harvinder [place] Diagnosis abnormalities of [facility] gait and mobility / Hospital R269(ICD-10) Repository 10/28/2017 Secondary History of falling MELL MCKOEN MD Active Harvinder [place] Diagnosis / Z9181(ICD-10) [facility] Hospital Repository 06/21/2017 Unknown 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 Community / E04.2(ICD-10) Hospital Repository 04/28/2017 Unknown E55.9 - Vitamin D Mell Mckeon Chi Active [place] deficiency, Community unspecified / Hospital E55.9(ICD-10) Repository 04/28/2017 Unknown I10 - Essential Mell Mckeon Chi Active [place] (primary) [facility] hypertension / Hospital I10(ICD-10) Repository PROCEDURES PROCEDURES No Procedure Records FoundRESULTS RESULTS CBC W/DIFF, AUTOMATED Collected: 02/05/2018 Status: F Source: [place] 12:39 PM [facility] HOSPITAL REPOSITORY TYPE CODE TESTS RESULT OUT [...] Lymph 2.39 Performed By: #### L100.0100 #### [facility] [address] [place], [place], [address] BASIC METABOLIC Collected: 02/05/2018 Status: F Source: [place] PROFILE (BMP) 12:39 PM [facility] REPOSITORY TYPE CODE TESTS RESULT OUT [...] GAP 8 Performed By: #### L500.2500 #### [facility] [address] [place], [place], [address] Observed: 02/01/2018 Status: F Source: [place] RESPIRATORY PANEL 4:15 PM [facility] MOLECULAR REPOSITORY RP PANEL Normal Reference Range [...] acid amplification Performed By: #### M100.638 #### [facility] [address] [facility] [place], [address] PROGRESS Observed: 01/14/2018 Status: COMPLETED Source: [place] 5:17 PM [facility] REPOSITORY HNO ID: [id number] Author: Carlos A Reich (Pa) Service: (none) Author Type: Physician Academic Advisor Type: Progress Notes Filed: 01/14/2018 7:31 PM [...] PA-C CNOV Observed: 01/14/2018 Status: COMPLETED Source: [place] 4:45 PM [facility] REPOSITORY Office Visit (WSTR) LEONARDO MACIAS ([id number]) 1940 F Date Time Provider Department 01/14/18 [...] Status: F Source: [facility]ER [place] 12:53 PM [place] [address] Patient: LEONARDO MACIAS Phone#: : 1940 Age: 77 Gender: F Pt. Type: ER Account: [id number] Location: 052 Ordering: REINIER LARA Exam Date: 12/11/2017/12:30 Family Phys: MELL MCKEON Charge Code: 948251 Physician: [place] Order #: [id number] DLP Dose#: PROCEDURE: X-RAY CHEST 1 VIEW COMPARISON: [facility], XR, CHEST AP, 04/11/2016, 14:51. INDICATIONS: Cough [...] Status: F Source: [place] 12:52 PM [place] [address] Patient: LEONARDO MACIAS Phone#: : 1940 Age: 77 Gender: F Pt. Type: ER Account: [id number] Location: 052 Ordering: REINIER LARA Exam Date: 12/11/2017/12:09 Family Phys: MELL MCKEON Charge Code: 948072 Physician: [place] Order #: [id number] DLP Dose#: PROCEDURE: X-RAY PELVIS AP COMPARISON: [facility], XR, RIBS LT UNILAT W/CHEST EXPIRATION, 01/03/2017, [...] MIN Observed: 12/11/2017 Status: F [facility] 4 VIEWS 12:52 PM [place] [address] Patient: LEONARDO MACIAS Phone#: : 1940 Age: 77 Gender: F Pt. Type: ER Account: [id number] Location: [facility] Ordering: REINIER LARA Exam Date: 12/11/2017/12:16 Family Phys: MELL MCKEON Charge Code: 603133 Physician: [place] Order #: [id number] P Dose#: PROCEDURE: X-RAY KNEE RT COMPLETE [...] Status: F Source: [facility] [place] 12:52 PM [place] [address] Patient: LEONARDO MACIAS Phone#: : 1940 Age: 77 Gender: F Pt. Type: ER Account: [id number] Location: 052 Ordering: REINIER LARA Exam Date: 12/11/2017/12:21 Family Phys: MELL MCKEON Charge Code: 417093 Physician: [place] Order #: [id number] DLP Dose#: PROCEDURE: X-RAY ELBOW RT MIN [...] W/O CONTRAST Observed: 12/11/2017 Status: F Source: [facility] 12:30 PM [place] [address] Patient: LEONARDO MACIAS Phone#: : 1940 Age: 77 Gender: F Pt. Type: ER Account: [id number] Location: 052 Ordering: REINIER LARA Exam Date: 12/11/2017/12:21 Family Phys: MELL MCKEON Charge Code: 089938 Physician: [place] Order #: [id number] DLP Dose#: PROCEDURE: CT BRAIN WITHOUT CONTRAST [...] F Source: [facility] [place] CONTRAST 12:30 PM [place] [address] Patient: LEONARDO MACIAS Phone#: : 1940 Age: 77 Gender: F Pt. Type: ER Account: [id number] Location: [facility] Ordering: REINIER MCDONALDD Exam Date: 12/11/2017/12:21 Family Phys: MELL MCKEON Charge Code: 448723 Physician: [place] Order #: [id number] DLP Dose#: PROCEDURE: CT CERVICAL WITHOUT CONTRAST [...] - Page 2 of 2 Patient: LEONARDO MACISA. Phone#: : 1940 Age: 77 Gender: F Pt. Type: ER Account: [id number] Location: 052 Ordering: REINIER LARA Exam Date: 12/11/2017/12:21 Family Phys: MELL Johnson LINDA Charge Code: 726908 Physician: [place] Order #: [id number] DLP Dose#: 1. Multilevel degenerative changes present. There is straightening of the normal cervical lordosis. 2. There is no evidence of acute bone abnormality. Dictated by: Mariella Fernandez MD on 12/11/2017 at 12:39 Approved by: Mariella Fernandez MD on 12/11/2017 at 12:39 EMERGENCY REPORT Observed: 12/11/2017 Status: F Source: [facility] 11:58 AM [facility] EMERGENCY ROOM REPORT NAME ACCOUNT SEX AGE ADMIT DISCHARGE PT MED. RECORD# NUMBER DATE DATE TYPE Cesar [id number] F 77 12/11/17 12/11/17 3 LEONARDO Lopez [address] ROOM: ER DATE OF : 1940 DICTATING [...] Reinier Lara MD 12/11/17 14:08 JOB #: [id number] Transcribed By: efra 12/12/17 08:13 Electronically signed by: HERB Lara M.D. 12/16/17 07:38 Page 2 of 2 LEONARDO MACIAS Emergency Room Report ABDOMEN LIMITED Observed: 10/30/2017 Status: F Source: [place] 10:17 AM [facility] REPOSITORY [facility] Imaging Services [facility] [place] [address] Abdomen Limited MR#: [id number] Acct: [id number] Name: LEONARDO MACIAS Rep #: [id number] : 1940 F 77 From: Delgado Olivera MD PCP: Linda LEE,Mell Chi Status: REG CLI Study: Abdomen Limited Date of Exam: 10/30/17 Exam# [id number] Ordering Dr: Mell Mckeon MD STUDY: ABDOMINAL [...] Service support , CC: Mell Mckeon MD Supervisor [place]alt [place]: Signed CBC W/DIFF, AUTOMATED Collected: 10/27/2017 Status: F Source: [place] 11:01 AM [facility] REPOSITORY TYPE CODE TESTS RESULT OUT [...] Lymph 2.95 Performed By: #### L100.0100 #### [facility] [address] [facility] [place], [address] COMPREHENSIVE METABOLIC Collected: 10/27/2017 Status: F Source: [facility] 11:01 AM [facility] REPOSITORY TYPE CODE TESTS RESULT OUT [...] 6 Performed By: #### L500.4050, L501.9520 #### [facility] [address] [place], [address] THYROID STIM HORMONE Collected: 10/27/2017 Status: F Source: [place] (TSH) 11:01 AM [facility] REPOSITORY TYPE CODE TESTS RESULT OUT OF RANGE REFERENCE UNITS LAB L501.9520 0.358-3.74 uIU/mL Normal TSH 3.57 Performed By: #### L500.4050, L501.9520 #### [facility] [address] [place], [address] VITAMIN D,25 HYDROXY Collected: 10/27/2017 Status: F Source: [place] 11:01 AM [facility] REPOSITORY TYPE CODE TESTS RESULT OUT OF REFERENCE UNITS RANGE LAB L506.1000 29.95-100.01 ng/mL Low Vitamin D 18.0 25-OH Result Comment: Vitamin D 25(OH) Status Range Deficiency <20 ng/mL (50nmol/L) Insuffciency 20 - 30 ng/mL (50 - 75 nmol/L) Sufficiency 30 - 100 ng/mL (75 - 250 nmol/L) Toxicity >100 ng/mL (>250 nmol/L) Performed By: #### L506.1000 #### [facility] [address] [place], [address] SURGERY VISIT REPORT Observed: 06/20/2017 Status: F Source: [place] 11:42 AM [facility] REPOSITORY [facility] 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 At [facility] she previously had a aspiration which did [...] ASPIRATION (SLIDES Observed: 06/20/2017 Status: F Source: [place] ONLY) 9:50 AM [facility] REPOSITORY Patient: LEONARDO MACIAS : 1940 (76/F) Acct Num: [id number] Phys: Haja LEE,Meño Unit Num: [id number] Loc: LABSPEC Specimen: [id number] Received: 06/22/1715 Spec [...] Submitted for staining. / 06/22/17 TC:5 CPT: 77846 CYTOLOGY STUDY Slides are reviewed. The specimen [...] on file> Performed By: #### PASPS #### [facility] [address] [place] [address]. [place], [address] SURGERY VISIT REPORT Observed: 06/09/2017 Status: F Source: [place] 1:49 PM [facility] REPOSITORY [facility] [address] [address] OFFICE VISIT Date of Service: 06/09/17 MR#: [id number] Acct: [id number] Name: LEONARDO MACIAS Rep #: [id number] : 1940 Provider: Meño Smyth MD Age/Sex: 76/F Location: [facility] Status: Signed Intake Vital Signs06/09/17 Height 5 ft 4 in 06/09/17 Weight: 209 lb 06/09/17 Body Mass Index (BMI) 35.9 Intake Visit Reasons: Thyroid Nodule/U/S [facility] 05/19 Allergies codeine Allergy (Verified 06/09/17 13:18) [...] meq PO QDAY 06/09/17 [History Confirmed 06/09/17] [facility] Medical History Multiple thyroid nodules (Acute) Anemia [...] thyroid ultrasound.. This was performed at the [facility]. The right lobe measured 4.3 x 1.4 [...] 05/19/2017 Status: F Source: [place] 1:36 PM [facility] REPOSITORY [facility] Imaging Services [address] [place] [address] [place] [address] [place] Thyroid Biopsy MR#: [id number] Acct: [id number] Name: LEONARDO MACIAS Rep #: [id number] : 1940 F 76 From: Michael Wynn MD PCP: Mell Mckeon MD, Chi Status: REG CLI Study: US Thyroid Biopsy Date of Exam: 05/19/17 Exam# [id number] Ordering Dr: Mell Mckeon MD PROCEDURE: ULTRASOUND [...] Michael Wynn MD at 15:34 EDT Tel [phone], Service support , CC: Mell Mckeon MD Supervisor [place]alt [place]: Signed ASP RADIOLOGY (FLUID) Observed: 05/19/2017 Status: F Source: [place] 12:00 AM [facility] REPOSITORY Patient: LEONARDO MACIAS : 1940 (76/F) Acct Num: [id number] Phys: Linda LEE,Mell Delvalle Unit Num: [id number] Loc: US Specimen: [id number] Received: 05/19/17 - [...] / SJ:boy 05/19/17 TC: Cannot code CPT: 63004, 64954, 17297, 53853, [address]1188 CYTOLOGY STUDY Slides are reviewed. The specimen [...] on file> Performed By: #### PASPIG #### [facility] [address], [address] AORTA Observed: 05/04/2017 Status: F Source: [place] 8:35 AM [facility] HOSPITAL REPOSITORY [facility] Imaging Services [address] [place] [address] Aorta MR#: [id number] Acct: [id number] Name: LEONARDO MACIAS Rep #: [id number] : 1940 F 76 From: Michael Wynn MD PCP: Mell Mckeon MD, Chi Status: REG CLI Study: Aorta Date of Exam: 05/04/17 Exam# [id number] Ordering Dr: Mell Mckeon MD PROCEDURES: ULTRASOUND [...] Michael Wynn MD at 15:38 EST Tel [phone], Service support , CC: Mell Mckeon MD Supervisor [place]: Signed THYROID Observed: 05/04/2017 Status: F Source: [place] 8:26 AM [facility] REPOSITORY [facility] Imaging Services [address] [place] [address] Thyroid MR#: [id number] Acct: [id number] Name: LEONARDO MACIAS Rep #: [id number] : 1940 F 76 From: Michael Wynn MD PCP: Mell Mckeon MD, Chi Status: REG CLI Study: Thyroid Date of Exam: 05/04/17 Exam# [id number] Ordering Dr: Mell Mckeon MD STUDY: THYROID [...] Michael Wynn MD at 15:11 EST Tel [phone], Service support , CC: Mell Mckeon MD Supervisor [place]: Signed CBC W/DIFF, AUTOMATED Collected: 04/28/2017 Status: F Source: [place] 12:13 PM [facility] REPOSITORY TYPE CODE TESTS RESULT OUT [...] Lymph 2.74 Performed By: #### L100.0100 #### [facility], [address] COMPREHENSIVE METABOLIC Collected: 04/28/2017 Status: F Source: [place] [facility] 12:13 PM [facility] REPOSITORY TYPE CODE TESTS RESULT OUT [...] 7 Performed By: #### L500.4050, L501.9520 #### [facility] [address] [place], [address] THYROID STIM HORMONE Collected: 04/28/2017 Status: F Source: [place] (TSH) 12:13 PM [facility] REPOSITORY TYPE CODE TESTS RESULT OUT OF RANGE REFERENCE UNITS LAB L501.9520 0.358-3.74 uIU/mL Normal TSH 3.48 Performed By: #### L500.4050, L501.9520 #### [facility] [address] [place], [address] VITAMIN D,25 HYDROXY Collected: 04/28/2017 Status: F Source: [place] 12:13 PM [facility] REPOSITORY TYPE CODE TESTS RESULT OUT OF RANGE REFERENCE UNITS LAB L506.1000 19.95-100.01 ng/mL Normal Vitamin D 22.8 25-OH Result Comment: Vitamin D 25(OH) Status Range Deficiency <20 ng/mL (50nmol/L) Insuffciency 20 - 30 ng/mL (50 - 75 nmol/L) Sufficiency 30 - 100 ng/mL (75 - 250 nmol/L) Toxicity >100 ng/mL (>250 nmol/L) Performed By: #### L506.1000 #### [facility] [address], [address] ALLERGIES ALLERGIES DATE TYPE / CODE NAME / CODE REACTION SEVERITY SOURCE 06/20/2017 Drug Penicillins/H27194 Swelling Unknown [place] Allergy/416 0476(RXNORM) Community 586820([facility] ED CT) Repository 06/20/2017 Drug Sulfa (Sulfonamide Unknown Unknown [place] Allergy/416 Antibiotics)/F0010 Community 547689(SNOM 35215(RXNORM) [facility] ED CT) Repository 06/20/2017 Drug codeine/[id number] Rash Unknown [place] Allergy/416 (RXNORM) Community 230442([facility] ED CT) Repository 01/12/2014 Drug SULFA (SULFONAMIDE SWELLING [facility] Class/29128 ANTIBIOTICS) Main [place] 1003(SNOMED Repository CT) 10/12/2012 DRUG CODEINE GI UPSET [facility] INGREDI/419 Main [place] 727848(SNOM Repository ED CT) 10/12/2012 Drug PENICILLINS UNKNOWN [facility] Class/19039 Main [place] 1003(SNOMED Repository CT) Drug SULFA Moderate Harvinder Pomerene Allergy/416 (sulfonamide)/0000 ([facility] 030558(SNOM 0022(RXNORM) Modifier) Hospital ED CT) (Qualifier Repository Value) Drug PENICILLINS Moderate Harvinder Pomerene Allergy/416 (CLASS)/50698209(R ([facility] 622515(SNOM XNORM) Modifier) Hospital ED CT) (Qualifier Repository Value) Drug CODEINE Moderate Harvinder [place] Allergy/416 SULFATE/61434108(R ([facility] 684715(SNOM XNORM) Modifier) Hospital ED CT) (Qualifier Repository Value) ENCOUNTERS ENCOUNTERS ADMIT/DISCHARGE ACCOUNT ADMITTING ENCOUNTER LOCATION SOURCE NUMBER CLASS 02/05/2018 [id number] [facility] ing:LABSPEC Repository 02/01/2018 [id number] [facility] ing:PSN Repository 01/14/2018/01/19/20 [id number] Ambulatory [address] Repository 01/07/2018/02/06/20 [id number] MELL MCKEON MD [address] Repository 12/11/2017/12/12/[id number] MARCO REINIER Emergency Buildin[address] [place] [address] C oom: ERBed: D [facility] Repository 10/30/2017 [id number] [facility] ing:US Repository 10/28/2017/01/07/20 [id number] MELL MCKEON MD [address] Repository 10/27/2017 [id number] [facility] ing:POLAB3 Repository 06/22/2017 [id number] [facility] ing:LABSPEC Repository 06/20/2017/06/21/19 [id number] Ambulatory BMSBuilding:B [place] [facility] Repository 06/18/2017 [id number] Ambulatory BMSBuilding:B [place] [facility] Repository 06/09/2017/06/10/19 [id number] Ambulatory BMSBuilding:B [place] 18 [facility] Repository 05/19/2017 [id number] Ambulatory [facility] Hospital ing:US Repository 05/04/2017 [id number] Ambulatory [facility] ing:US Repository 04/28/2017 [id number] [facility] ing:POLAB3 Repository 04/28/2017 [id number] [facility] ing:POLAB3 Repository PAYERS PAYERS ENCOUNTER GUARANTOR PAYER SUBSCRIBER SOURCE 02/05/2018 LEONARDO J Primary LEONARDO J [place] [id number] Insurance:MEDICARE MCCLOUDDOB: [facility] PART A BPolicy Number: [id number], [id number] [place]ository [place] [address]Xml: Date:2018-02-05 () 02/05/2018 Secondary LEONARDO J [place] Insurance:CHAMPVAPolic MCCLOUDDOB: Community y Number: [id number] Hospital [id number] Repository Date:[id number] [address], [place] [address]MA: 02/05/2018 Tertiary NOT GIVENUNK [place] Insurance:SELF PAY [facility] Number: Effective Repository Date:2018-02-05 02/01/2018 LEONARDO J Primary LEONARDO J [place] [id number] Insurance:MEDICARE MCCLOUDDOB: [facility] PART A BPolicy Number: [id number], [id number] [place]ository [place] [address]Bgr: Date:2018-02-01 () 02/01/2018 Secondary LEONARDO J [place] [facility] MCCLOUDDOB: Community y Number: [id number] Hospital [id number] Repository Date:6709-08-03IW [address], [place] [address]EU: 02/01/2018 Tertiary NOT GIVENUNK [place] Insurance:SELF PAY [facility] Number: Effective Repository Date:2018-02-01 01/07/2018 LEONARDO J Primary LEONARDO J Harvinder Montenegro MCCLOUDDOB: Insurance:MEDICARE MCCLOUDDOB: [facility] [id number] RECURRING REFERENCE [id number] Number: DMITRIY Repository HIHESHAMKIT [facility], [id number] [place], [place] Date:Plan Name:[facility] [id number]: () 01/07/2018 Secondary LEONARDO Castillone Insurance[facility] MEDIC[facility] HMO [id number] [place] [address] LEDLIGIA Repository Number: [place], [id number] [place] [id number] Date: 12/11/2017 LEONARDO J Primary Insurance:[facility][note 2] LEONARDO J Harvinder Pomerene [facility]: MEDICARE MCCLOUDDOB: [facility] [id number] [place] [address] Number: [id number] Repository [facility], [id number] [place], [place] Date:Plan Name:[facility] [id number]: () 12/11/2017 Secondary LEONARDOARIN [place] Pomerene Insurance[facility] [id number] Hospital Number: [id number] Repository [id number] [facility], Date:Plan Name:[facility] [id number] 10/30/2017 LEONARDO J Primary LEONARDO J [place] [id number] Insurance:MEDICARE MCCLOUDDOB: [facility] PART A BPolicy Number: [id number], [id number] [place] [address]Fss: Date:2017-10-27 () 10/30/2017 Secondary LEONARDO J [place] Insurance:[facility]: [facility] y Number: [id number] Hospital [id number] Repository Date:3572-88-83YY [address], [place] [address]OF: 10/30/2017 Tertiary NOT GIVENUNK [place] Insurance:SELF PAY [facility] Number: Effective Repository Date:2017-10-27 10/28/2017 LEONARDO J Primary LEONARDO J Harvinder Montenegro MCCLOUDDOB: Insurance:MEDICARE MCCLOUDDOB: [facility] [id number] [facility] Number: [facility] Repository HILYNDA, [id number] [place], [place] Date:Plan Name:[facility] [id number]: () 10/28/2017 Secondary LEONARDO J Harvinder Monten[place] Insurance: MCCLOUDDOB: [facility] MEDICARE HMO [id number] [facility] Repository Number: [place], [id number] [place] [id number] Date: 10/27/2017 LEONARDO J Primary LEONARDO J [place] [id number] Insurance:MEDICARE [facility]MAN[facility]OUDDOB: [facility] PART A BPolicy Number: [id number], [id number] [place] [address]Zps: Date:2017-10-27 (HP) 10/27/2017 Secondary LEONARDO J [place] Insurance:[facility]MANLOUDDOB: Community y Number: [id number] Hospital [id number] Repository Date:2194-35-71[address] [address]LL: 10/27/2017 Tertiary NOT GIVENUNK [place] Insurance:SELF PAY [facility] Number: Effective Repository Date:2017-10-27 06/22/2017 LEONARDO J Primary LEONARDO J [place] [id number] Insurance:MEDICARE MCCLOUDDOB: [facility] PART A BPolicy Number: [id number], [id number] Repository [place] [address]Qgj: Date:2017-06-22 () 06/22/2017 Secondary LEONARDO J [place] Insurance:[facility]MAN[facility]DDOB: Community y Number: [id number] Hospital [id number] Repository Date:9691-91-74KQ [address], [place] [address]MS: 06/22/2017 Tertiary NOT GIVENUNK [place] Insurance:SELF PAY [facility] Number: Effective Repository Date:2017-06-22 06/20/2017 LEONARDO J Primary LEONARDO J [place] [id number] Insurance:MEDICARE MCCLOUDDOB: Community LEDGES PART A BPolicy Number: [id number], [id number] [place]ository [place] [address]Xzt: Date:2017-06-17 () 06/20/2017 Secondary LEONARDO J Anderson Insurance:CHAMPVAPolic MCCLOUDDOB: Community y Number: [id number] [facility] [id number] Repository Date:[id number], [place] [address]UB: 06/20/2017 Tertiary NOT GIVENUNK Anderson Insurance:SELF PAY [facility] Number: Effective Repository Date:2017-06-17 06/18/2017 LEONARDO J Primary LEONARDO J Abebe [id number] Insurance:MEDICARE MCCLOUDDOB: Community LEDGES PART A BPolicy Number: [id number], [id number] [place]ository [place] [address]Tvj: Date:2017-06-09 () 06/18/2017 Secondary LEONARDO J Abebe Insurance:CHAMPVAPolic MCCLOUDDOB: Community y Number: [id number] [facility] [id number] Repository Date:2162-95-27[address]SQ[place]TQ, [place] [address]OA: 06/18/2017 Tertiary NOT GIVENUNK Abebe Insurance:SELF PAY [facility] Number: Effective Repository Date:2017-06-09 06/09/2017 LEONARDO J Primary LEONARDO J Anderson [id number] Insurance:MEDICARE MCCLOUDDOB: Community LEDGES PART A BPolicy Number: [id number], [id number] [place]ository [place] [address]Wuy: Date:2017-05-29 () 06/09/2017 Secondary LEONARDO J Abebe Insurance:CHAMPVAPolic MCCLOUDDOB: Community y Number: [id number] [facility] [id number] Repository Date:[id number], [place] [address]SG: 06/09/2017 Tertiary NOT GIVENUNK Anderson Insurance:SELF PAY [facility] Number: Effective Repository Date:2017-05-29 05/19/2017 Leonardo J Primary Leonardo J Abebe [id number] Insurance:MEDICARE MccloudDOB: Community LEDGES PART A BPolicy Number: [id number], [id number] [place]ository [place] [address]Yhd: Date:2017-05-08 () 05/19/2017 Secondary Leonardo J Abebe [facility] MccloudDOB: Community y Number: [id number] Hospital [id number] Repository Date:[id number], [place] [address]QN: 05/19/2017 Tertiary NOT GIVENUNK Abebe Insurance:SELF PAY [facility] Number: Effective Repository Date:2017-05-08 05/04/2017 Leonardo J Primary Leonardo J Abebe [id number] Insurance:MEDICARE MccloudDOB: Community LEDGES PART A BPolicy Number: [id number], [id number] [place]ository [place] [address]Ylw: Date:2017-04-28 () 05/04/2017 Secondary Leonardo J Anderson Insurance:CHAMPVAPolic MccloudDOB: Community y Number: [id number] Hospital [id number] Repository Date:3677-84-48[address], [place] [address]KV: 05/04/2017 Tertiary NOT GIVENUNK Abebe Insurance:SELF PAY [facility] Number: Effective Repository Date:2017-04-28 04/28/2017 Leonardo J Primary Leonardo J Anderson [id number] Insurance:MEDICARE MccloudDOB: Community Ledges PART A BPolicy Number: [id number] [id number] [place], [place] [address]Drl: Date:2017-04-28 () 04/28/2017 Secondary Leonardo J Anderson Insurance:CHAMPVAPolic MccloudDOB: Community y Number: [id number] Hospital [id number] Repository Date:[id number], [place] [address]GQ: 04/28/2017 Tertiary NOT GIVENUNK Anderson Insurance:SELF PAY [facility] Number: Effective Repository Date:2017-04-28 04/28/2017 Leonardo J Primary Leonardo J Anderson [id number] Insurance:MEDICARE MccloudDOB: Community Ledges PART A BPolicy Number: [id number] [facility] [id number] [place] [address]Lpd: Date:2017-04-28 () 04/28/2017 Secondary Leonardo J Anderson Insurance:CHAMPVAPolic MccloudDOB: Community y Number: [id number] Hospital [id number] Repository Date:[id number] [address], [place] [address]XD: 04/28/2017 Tertiary NOT GIVENUNK Anderson Insurance:SELF PAY [facility] Number: Effective Repository Date:2017-04-28
== END ==
PROVIDERS: Family Provider Family Medicine Geriatric Medicine; PCP Family Medicine Geriatric Medicine; Referring Provider Family Medicine Geriatric Medicine; Visit Provider Family Medicine Geriatric Medicine
DX: R60.9 Edema, unspecified (principal)
CPT/HCPCS: 36415; 80048; 85025

== ENCOUNTER → 2018-04-29 13:34 | Outpatient (CLI) | payer MEDICARE, OTHER, SELFPAY ==
[2018-04-29 16:30] LABS: Absolute Lymphocyte Count 2.54 X10^3/ul (0.83-4.51); Absolute Neutrophil Count 3.9 X10^3/uL (2.0-7.7); Basophil# 0.04 X10^3/uL; Basophil% 0.5 % (0-1); Eosinophil# 0.31 X10^3/uL; Eosinophils% 4.1 % (0-5); Hematocrit 38.2 % (37-47); Lymphocyte # 2.54 X10^3/ul (4.0); Lymphocyte % 33.8 % (19-41); Mean Corp Hgb Conc 31.4 g/gl (32-36); Mean Corpuscular Hgb 31.3 pg (27.0-32.0); Mean Corpuscular Volume 99.7 fL (81-99); Mean Platelet Vol. 10.5 fl (6.2-12.0); Monocyte# 0.73 X10^3/uL; Monocyte% 9.7 % (0-10); Neutrophil # 3.89 X10^3/uL (2.7-7.7); Neutrophil % 51.8 % (47-70); Platelet Count 237 K/mm3 (150-450); RBC Distribution Width SD 46.8 fl (35.1-43.9); Red Blood Count 3.83 M/mm3 (4.2-5.4); White Blood Count 7.5 K/mm3 (4.4-11.0)
[2018-04-29 16:33] LABS: POSITIVE COUNT NO; POSITIVE DIFFERENTIAL NO; POSITIVE MORPHOLOGY NO
[2018-04-29 16:36] LABS: ALB/GLOB Ratio 0.8 RATIO (0.9-2.4); AST(SGOT) 20 U/L (15-37); Alanine Aminotransfer ALT/SGPT 22 U/L (13-56); Albumin, Serum 3.2 g/dL (3.2-5.0); Alkaline Phosphatase 110 U/L (45-117); Anion Gap 9 (5-15); BUN 11 mg/dL (7-18); BUN/Creat Ratio 13.3 RATIO (10-20); Calcium,Total 8.7 mg/dL (8.5-10.1); Chloride 105 mmol/L (98-107); Creatinine, Serum 0.83 mg/dL (0.55-1.02); EST Glomerular Filtration Rate 70 mL/min (>60); Est Glom Filt Rate - Afr Amer 85 mL/min (>60); Globulin 3.9 g/dL (2.2-4.2); Glucose 77 mg/dL (74-106); Potassium 4.7 mmol/L (3.5-5.1); Protein, Total 7.1 g/dL (6.4-8.2); Sodium Level 142 mmol/L (136-145); Thyroid Stim Hormone (TSH) 2.71 uIU/mL (0.358-3.74)
[2018-04-29 16:38] LABS: Vitamin D,25 Hydroxy 8.2 ng/mL (29.95-100.01)
== END ==
PROVIDERS: Family Provider Family Medicine Geriatric Medicine; PCP Family Medicine Geriatric Medicine; Visit Provider Family Medicine Geriatric Medicine
DX: E55.9 Vitamin D deficiency, unspecified (principal); I10 Essential (primary) hypertension
CPT/HCPCS: 36415; 80053; 82306; 84443; 85025

== ENCOUNTER → 2018-05-03 12:52 | Outpatient (CLI) | payer MEDICARE, OTHER, SELFPAY ==
--- NOTE | 2018-05-03 12:58 | US_ITS ---
HISTORY: nodule TECHNIQUE: Gutierrez scale and color doppler imaging was performed of the thyroid gland. COMPARISON: 05/19/17 ultrasound FINDINGS: # of images incl. paperwork: 54 RIGHT THYROID LOBE: 4.3 x 1.8 x 1.0 cm. Homogeneous echotexture with normal vascularity. No right thyroid nodules are present. LEFT THYROID LOBE: 4.1 x 1.9 x 1.2 cm. Homogeneous echotexture with normal vascularity. 1.5 x 1.1 x 1.0 solid nodule with small hypoechoic regions within it and internal and peripheral vascularity, similar to previous. ISTHMUS: 0.3 cm. No Isthmus nodules are present. US/Thyroid IMPRESSION: No significant change in the 1.5 cm in greatest dimension solid nodule in the left lobe of the thyroid gland. at 0404 Reported and signed by: Brando Veras MD Electronically Signed: Brando Veras, at 4:03 EST Tel , Service support ,
== END ==
PROVIDERS: Family Provider Family Medicine Geriatric Medicine; PCP Family Medicine Geriatric Medicine; Referring Provider Family Medicine Geriatric Medicine; Visit Provider Family Medicine Geriatric Medicine
DX: E04.1 Nontoxic single thyroid nodule (principal)
CPT/HCPCS: 76536

== ENCOUNTER → 2018-11-24 11:41 | Outpatient (CLI) | payer MEDICARE, OTHER, SELFPAY ==
[2018-11-24 12:44] LABS: Absolute Lymphocyte Count 2.41 X10^3/uL (0.83-4.51); Absolute Neutrophil Count 4.8 X10^3/uL (2.0-7.7); Basophil# 0.05 X10^3/uL; Basophil% 0.6 % (0-1); Eosinophil# 0.17 X10^3/uL; Eosinophils% 2.1 % (0-5); Hematocrit 40.3 % (37-47); Hemoglobin 12.8 g/dL (12.0-15.0); Lymphocyte # 2.41 X10^3/ul (4.0); Mean Corp Hgb Conc 31.8 g/dL (32-36); Mean Corpuscular Hgb 30.5 pg (27.0-32.0); Mean Corpuscular Volume 96.2 fL (81-99); Mean Platelet Vol. 10.5 fl (6.2-12.0); Monocyte# 0.63 X10^3/uL; Monocyte% 7.8 % (0-10); NRBC Flagged by Analyzer 0 % (0-5); Neutrophil # 4.76 X10^3/uL (2.7-7.7); Neutrophil % 59.3 % (47-70); Platelet Count 251 K/mm3 (150-450); RBC Distribution Width CV 12.8 % (11.6-14.6); RBC Distribution Width SD 45.3 fl (35.1-43.9); Red Blood Count 4.19 M/mm3 (4.2-5.4)
[2018-11-24 13:02] LABS: Vitamin D,25 Hydroxy 16.4 ng/mL (29.95-100.01)
[2018-11-24 13:14] LABS: ALB/GLOB Ratio 0.8 RATIO (0.9-2.4); AST(SGOT) 18 U/L (15-37); Alanine Aminotransfer ALT/SGPT 19 U/L (13-56); Albumin, Serum 3.4 g/dL (3.2-5.0); Alkaline Phosphatase 129 U/L (45-117); Anion Gap 4 (5-15); BUN 16 mg/dL (7-18); BUN/Creat Ratio 15.5 RATIO (10-20); Calcium,Total 9.1 mg/dL (8.5-10.1); Chloride 105 mmol/L (98-107); Creatinine, Serum 1.03 mg/dL (0.55-1.02); EST Glomerular Filtration Rate 55 mL/min (>60); Est Glom Filt Rate - Afr Amer 66 mL/min (>60); Globulin 4.3 g/dL (2.2-4.2); Glucose 98 mg/dL (74-106); Potassium 4.9 mmol/L (3.5-5.1); Protein, Total 7.7 g/dL (6.4-8.2); Sodium Level 139 mmol/L (136-145); Thyroid Stim Hormone (TSH) 2.72 uIU/mL (0.358-3.74)
== END ==
PROVIDERS: Family Provider Family Medicine Geriatric Medicine; PCP Family Medicine Geriatric Medicine; Visit Provider Family Medicine Geriatric Medicine
DX: I10 Essential (primary) hypertension (principal); E55.9 Vitamin D deficiency, unspecified
CPT/HCPCS: 36415; 80053; 82306; 84443; 85025

== ENCOUNTER → 2019-03-03 17:09 | Outpatient (CLI) | payer MEDICARE, OTHER, SELFPAY ==
--- NOTE | 2019-03-03 17:23 | RAD_ITS ---
STUDY: X-RAY CHEST REASON FOR EXAM: Female, 78 years old. Follow-up for Bronchitis. Productive cough, fatigue and SOB x 1 week. TECHNIQUE: PA and lateral views of the chest. COMPARISON: 08/28/2016. FINDINGS: The lungs are clear and expanded. There is no demonstrated pleural abnormality. Normal size heart. Normal mediastinum and jarret. Normal visualized pulmonary arteries. There is atherosclerotic calcification of the aortic arch with tortuosity. There are diffuse degenerative changes of the visualized thoracic spine. Normal visualized ribs, clavicles, and shoulders. There is no demonstrated abnormality of the visualized soft tissue structures of the upper abdomen. RAD/Chest PA and Lateral IMPRESSION: No acute cardiopulmonary disease. Electronically Signed: Sharda Miranda MD at 0:59 EST , Service support ,
== END ==
PROVIDERS: Family Provider Family Medicine Geriatric Medicine; PCP Family Medicine Geriatric Medicine; Referring Provider Family Medicine Geriatric Medicine; Visit Provider Family Medicine Geriatric Medicine
DX: J40 Bronchitis, not specified as acute or chronic (principal); R68.83 Chills (without fever)
CPT/HCPCS: 71046; 87633

== ENCOUNTER → 2019-05-02 10:22 | Outpatient (CLI) | payer MEDICARE, OTHER, SELFPAY ==
[2019-05-02 12:17] LABS: Absolute Lymphocyte Count 2.16 X10^3/uL (0.83-4.51); Basophil# 0.03 X10^3/uL; Basophil% 0.4 % (0-1); Eosinophil# 0.34 X10^3/uL; Eosinophils% 4.7 % (0-5); Hematocrit 37.4 % (37-47); Hemoglobin 11.7 g/dL (12.0-15.0); Lymphocyte # 2.16 X10^3/ul (4.0); Lymphocyte % 29.7 % (19-41); Mean Corp Hgb Conc 31.3 g/dL (32-36); Mean Corpuscular Hgb 30.8 pg (27.0-32.0); Mean Corpuscular Volume 98.4 fL (81-99); Mean Platelet Vol. 10.8 fl (6.2-12.0); Monocyte# 0.67 X10^3/uL; Monocyte% 9.2 % (0-10); NRBC Flagged by Analyzer 0 % (0-5); Neutrophil # 4.04 X10^3/uL (2.7-7.7); Neutrophil % 55.6 % (47-70); Platelet Count 234 K/mm3 (150-450); RBC Distribution Width CV 13.4 % (11.6-14.6); RBC Distribution Width SD 48.7 fl (35.1-43.9); White Blood Count 7.3 K/mm3 (4.4-11.0)
[2019-05-02 12:31] LABS: ALB/GLOB Ratio 0.8 RATIO (0.9-2.4); AST(SGOT) 18 U/L (15-37); Alanine Aminotransfer ALT/SGPT 24 U/L (13-56); Albumin, Serum 3.2 g/dL (3.2-5.0); Alkaline Phosphatase 126 U/L (45-117); Anion Gap 7 (5-15); BUN 14 mg/dL (7-18); BUN/Creat Ratio 16.5 RATIO (10-20); Calcium,Total 8.7 mg/dL (8.5-10.1); Chloride 108 mmol/L (98-107); Creatinine, Serum 0.85 mg/dL (0.55-1.02); EST Glomerular Filtration Rate 68 mL/min (>60); Est Glom Filt Rate - Afr Amer 83 mL/min (>60); Globulin 3.9 g/dL (2.2-4.2); Glucose 84 mg/dL (74-106); Potassium 4.3 mmol/L (3.5-5.1); Protein, Total 7.1 g/dL (6.4-8.2); Sodium Level 141 mmol/L (136-145); Thyroid Stim Hormone (TSH) 2.85 uIU/mL (0.358-3.74)
== END ==
PROVIDERS: PCP Family Medicine Geriatric Medicine; Visit Provider Family Medicine Geriatric Medicine
DX: E55.9 Vitamin D deficiency, unspecified (principal); I10 Essential (primary) hypertension
CPT/HCPCS: 36415; 80053; 82306; 84443; 85025

== ENCOUNTER → 2019-05-06 13:20 | Outpatient (CLI) | payer MEDICARE, OTHER, SELFPAY ==
--- NOTE | 2019-05-06 13:23 | US_ITS ---
HISTORY: NODULE COMPARISON: 05/03/2018, 05/04/2017 TECHNIQUE: Grayscale and color Doppler sonography of the thyroid gland. FINDINGS: RIGHT LOBE: 4.3 x 1.1 x 1.5 cm LEFT LOBE: 4.1 x 1.4 x 1.7 cm ISTHMUS: 3 mm 1.5 x 1.2 x 1.1 cm heterogeneous, mixed solid and cystic left thyroid lobe nodule, previously 1.5 x 1.0 x 1.1 cm on 05/03/2018 with increase in cystic component compared to the prior studies. No distinct calcifications. TIRADS 2. US/Thyroid IMPRESSION: Cystic component within the left thyroid lobe nodule has increased but the nodule is overall similar in size. at 0437 Reported and signed by: Dasha Beyer MD Electronically Signed: Dasha Beyer MD at 4:36 EST Tel , Service support ,
== END ==
PROVIDERS: PCP Family Medicine Geriatric Medicine; Referring Provider Family Medicine Geriatric Medicine; Visit Provider Family Medicine Geriatric Medicine
DX: E04.1 Nontoxic single thyroid nodule (principal)
CPT/HCPCS: 76536

== ENCOUNTER → 2019-05-23 09:34 | Outpatient (CLI) | payer MEDICARE, OTHER, SELFPAY ==
--- NOTE | 2019-05-23 09:37 | NM_ITS ---
CLINICAL: 78-year-old female with reported history of thyroid nodularity. I-123 THYROID UPTAKE and SCAN COMPARISON: Thyroid ultrasound report 05/06/2019 FINDINGS: The patient was administered a 300 uCi I-123 capsule by mouth. The 4-hour I-123 radioactive iodine thyroidal uptake was calculated to be 5.1 % (normal 5 to 25 %). The 24-hour I-123 radioactive iodine thyroidal uptake was calculated to be 29.8 % (normal 5 to 40 %). The I-123 thyroid scan demonstrates homogeneous radiopharmaceutical concentration throughout both lobes of a U -shaped thyroid gland. There are no colloidal parenchymal hypofunctioning cold nodules noted in either lobe of the thyroid gland. NM/Thyroid Uptake Single or Mult IMPRESSION: 1. NORMAL 4- and 24-hour I-123 radioactive iodine thyroidal uptakes. 2. The I-123 thyroid scan is consistent with stage I nodular colloid goiter secondary to the presence of isthmus radiopharmaceutical concentration. (Venu et al, J Nucl Med 32: 1455, 1991). 3. No hypofunctioning-cold nodules are identified. Electronically Signed: Quang Ramos DO at 23:29 EDT Tel , Service support ,
== END ==
PROVIDERS: PCP Family Medicine Geriatric Medicine; Referring Provider Family Medicine Geriatric Medicine; Visit Provider Family Medicine Geriatric Medicine
DX: E04.1 Nontoxic single thyroid nodule (principal)
CPT/HCPCS: 78012; A9516

== ENCOUNTER → 2019-11-02 11:13 | Outpatient (CLI) | payer MEDICARE, OTHER, SELFPAY ==
[2019-11-02 12:08] LABS: Absolute Neutrophil Count 3.2 X10^3/uL (2.0-7.7); Basophil# 0.04 X10^3/uL; Basophil% 0.6 % (0-1); Eosinophil# 0.24 X10^3/uL; Eosinophils% 3.6 % (0-5); Hematocrit 38.5 % (37-47); Hemoglobin 12.5 g/dL (12.0-15.0); Lymphocyte % 39.5 % (19-41); Mean Corp Hgb Conc 32.5 g/dL (32-36); Mean Corpuscular Hgb 31.1 pg (27.0-32.0); Mean Corpuscular Volume 95.8 fL (81-99); Mean Platelet Vol. 10.9 fl (6.2-12.0); Monocyte# 0.48 X10^3/uL; Monocyte% 7.3 % (0-10); NRBC Flagged by Analyzer 0 % (0-5); Neutrophil % 48.7 % (47-70); Platelet Count 269 K/mm3 (150-450); RBC Distribution Width CV 12.7 % (11.6-14.6); RBC Distribution Width SD 44.7 fl (35.1-43.9); Red Blood Count 4.02 M/mm3 (4.2-5.4); White Blood Count 6.6 K/mm3 (4.4-11.0)
[2019-11-02 12:19] LABS: Vitamin D,25 Hydroxy 17.4 ng/mL
[2019-11-02 12:30] LABS: ALB/GLOB Ratio 0.8 RATIO (0.9-2.4); AST(SGOT) 16 U/L (15-37); Alanine Aminotransfer ALT/SGPT 17 U/L (13-56); Albumin, Serum 3.5 g/dL (3.2-5.0); Alkaline Phosphatase 115 U/L (45-117); Anion Gap 6 (5-15); BUN 21 mg/dL (7-18); BUN/Creat Ratio 22.6 RATIO (10-20); Chloride 108 mmol/L (98-107); Creatinine, Serum 0.93 mg/dL (0.55-1.02); EST Glomerular Filtration Rate 61 mL/min (>60); Est Glom Filt Rate - Afr Amer 74 mL/min (>60); Globulin 4.2 g/dL (2.2-4.2); Glucose 98 mg/dL (74-106); Potassium 4.6 mmol/L (3.5-5.1); Protein, Total 7.7 g/dL (6.4-8.2); Sodium Level 139 mmol/L (136-145); Thyroid Stim Hormone (TSH) 2.36 uIU/mL (0.358-3.74)
== END ==
PROVIDERS: PCP Family Medicine Geriatric Medicine; Referring Provider Family Medicine Geriatric Medicine; Visit Provider Family Medicine Geriatric Medicine
DX: E55.9 Vitamin D deficiency, unspecified (principal); I10 Essential (primary) hypertension
CPT/HCPCS: 36415; 80053; 82306; 84443; 85025

== ENCOUNTER → 2020-05-03 11:08 | Outpatient (CLI) | payer MEDICARE, OTHER, SELFPAY ==
[2020-05-03 12:33] LABS: Absolute Lymphocyte Count 2.57 X10^3/uL (0.83-4.51); Basophil# 0.04 X10^3/uL; Basophil% 0.6 % (0-1); Eosinophil# 0.19 X10^3/uL; Hematocrit 37.6 % (37-47); Hemoglobin 11.8 g/dL (12.0-15.0); Lymphocyte # 2.57 X10^3/ul (4.0); Lymphocyte % 40.2 % (19-41); Mean Corp Hgb Conc 31.4 g/dL (32-36); Mean Corpuscular Hgb 29.9 pg (27.0-32.0); Mean Corpuscular Volume 95.4 fL (81-99); Mean Platelet Vol. 10.6 fl (6.2-12.0); Monocyte# 0.54 X10^3/uL; Monocyte% 8.5 % (0-10); NRBC Flagged by Analyzer 0 % (0-5); Neutrophil # 3.03 X10^3/uL (2.7-7.7); Neutrophil % 47.4 % (47-70); Platelet Count 308 K/mm3 (150-450); RBC Distribution Width CV 12.3 % (11.6-14.6); RBC Distribution Width SD 43.7 fl (35.1-43.9); Red Blood Count 3.94 M/mm3 (4.2-5.4); White Blood Count 6.4 K/mm3 (4.4-11.0)
[2020-05-03 13:11] LABS: Vitamin D,25 Hydroxy 12.2 ng/mL
[2020-05-03 13:15] LABS: ALB/GLOB Ratio 0.9 RATIO (0.9-2.4); AST(SGOT) 15 U/L (15-37); Alanine Aminotransfer ALT/SGPT 20 U/L (13-56); Albumin, Serum 3.3 g/dL (3.2-5.0); Alkaline Phosphatase 116 U/L (45-117); Anion Gap 7 (5-15); BUN 22 mg/dL (7-18); BUN/Creat Ratio 23.2 RATIO (10-20); Calcium,Total 8.8 mg/dL (8.5-10.1); Chloride 107 mmol/L (98-107); Creatinine, Serum 0.95 mg/dL (0.55-1.02); EST Glomerular Filtration Rate 60 mL/min (>60); Est Glom Filt Rate - Afr Amer 73 mL/min (>60); Globulin 3.8 g/dL (2.2-4.2); Glucose 90 mg/dL (74-106); Potassium 4.5 mmol/L (3.5-5.1); Protein, Total 7.1 g/dL (6.4-8.2); Sodium Level 141 mmol/L (136-145)
--- NOTE | 2020-05-03 13:46 | VDLE_ITS ---
Reason For Study: edema RIGHT GSV is normal. CFV is compressible, spontaneous, phasic, competent and demonstrates normal augmentation. FV is compressible, spontaneous, phasic, competent and demonstrates normal augmentation. POP V is compressible, spontaneous, phasic, competent and demonstrates normal augmentation. T/P Trunk is compressible. PTV is compressible. RT PerV is compressible. Procedure This is a venous duplex using B-mode, color flow and spectral Doppler. Exam performed in department. The exam was abbreviated due to the COVID 19 protocol. The exam was diagnostic. A preliminary report was called and/or faxed to Dr. Gallo. Interpretation Summary Deep veins of the right lower extremity are patent and compressible segmentally. There is no evidence of right lower extremity deep vein thrombosis. Valvular competence appears intact within the proximal deep venous system on the right . The right great saphenous vein appears patent and compressible segmentally. Ordering Physician: Abraham Gallo Performed By: Gilberto Webb RVT
== END ==
PROVIDERS: PCP Family Medicine Geriatric Medicine; Visit Provider Family Medicine Geriatric Medicine
DX: I10 Essential (primary) hypertension (principal); E55.9 Vitamin D deficiency, unspecified; R60.0 Localized edema
CPT/HCPCS: 36415; 80053; 82306; 84443; 85025; 93971

== ENCOUNTER → 2020-05-07 12:52 | Outpatient (CLI) | payer MEDICARE, OTHER, SELFPAY ==
--- NOTE | 2020-05-07 13:03 | US_ITS ---
STUDY: THYROID ULTRASOUND REASON FOR EXAM: Female, 79 years old. Thyroid nodule. TECHNIQUE: Ultrasound evaluation of the thyroid was performed with real-time and static kaur-scale imaging. COMPARISON: 05/06/2019. FINDINGS: Imaging is limited secondary to patient respiration. RIGHT LOBE: The right lobe of the thyroid gland measures 3.3 x 1.5 x 1.2 cm. There is a homogeneous echotexture. There are no demonstrated solid, cystic or complex lesions. Normal vascularity on DOPPLER imaging. LEFT LOBE: The left lobe of the thyroid gland measures 3.9 x 1.5 x 1.6 cm. There is a heterogeneous echotexture. The upper pole is 1.6 x 1.5 x 1.4 spongiform nodule. There is peripheral vascularity on DOPPLER imaging. ISTHMUS: The isthmus measures 0.2 cm. There are multiple benign-appearing lymph nodes in the right neck superior to the thyroid. These measure 1.4 x 0.6 x 0.6 cm and 1.0 x 0.5 x 0.5 cm. US/Thyroid IMPRESSION: 1. Essentially stable spongiform nodule in the left thyroid. This nodule is mixed cystic and solid, hyperechoic or isoechoic, olirk-beoq-thxe, ill-defined and contains no echogenic foci. TI-RADS points: 2. TI-RADS category: TR2. This nodule is benign and no FNA or follow-up is necessary. 2. Benign-appearing lymph nodes in the right neck, not previously noted. Electronically Signed: Zaki Peña DO at 17:11 EST Tel [phone], Service support ,
== END ==
PROVIDERS: PCP Family Medicine Geriatric Medicine; Referring Provider Family Medicine Geriatric Medicine; Visit Provider Family Medicine Geriatric Medicine
DX: E04.1 Nontoxic single thyroid nodule (principal)
CPT/HCPCS: 76536

== ENCOUNTER → 2020-10-09 | Outpatient (CLI) | payer MEDICARE, OTHER, SELFPAY ==
--- NOTE | 2020-10-09 09:40 | LES_PTH ---
PATIENT: LEONARDO MORAN LOC: [facility] U#:[id number] AGE/SX: 80/F ROOM: RE10/09/[address]: Dr. Abraham Gallo MD : 1940 BED: DIS: 10/09/2020 SPEC #: [id number] RECD: 10/09/20 12:25 STATUS: RAPHAEL RERamu #: [id number] RAVINDRA: 10/09/20 09:[address]: Abraham Gallo Chi DEPT: SURGICAL PATHOLOGY RECD BY: Kaylin Yung Tissues: Skin of neck, NOS Procedures: Surgery Specimen Level IV HEADER OPERATION: Left neck lesion, shave biopsy PRE-OP DIAGNOSIS: Left neck lesion TISSUE SUBMITTED: Left neck MICROSCOPIC DIAGNOSIS Left neck lesion, shave biopsy: Basal cell carcinoma. RICHARD:boy 10/10/2020 MICROSCOPIC DESCRIPTION Slides are reviewed. GROSS DESCRIPTION Received in fixative is one container labeled with the patient's name and designated left neck. The specimen consists of a shave biopsy of johnson-white skin measuring 0.3 x 0.3 x 0.1 cm. The specimen is inked and submitted entirely in one cassette. It will be bisected at the time of embedding. / SJ:rg 10/09/20 TC:0 CPT: 17779
== END | disposition home or self-care (01) ==
LOC: LABSPEC 12:49
PROVIDERS: PCP Family Medicine Geriatric Medicine; Referring Provider Family Medicine Geriatric Medicine; Visit Provider Family Medicine Geriatric Medicine
DX: C44.41 Basal cell carcinoma of skin of scalp and neck (principal)
CPT/HCPCS: 88305

== ENCOUNTER → 2020-11-01 09:50 | Outpatient (CLI) | payer MEDICARE, OTHER, SELFPAY ==
[2020-11-01 12:34] LABS: Absolute Lymphocyte Count 2.59 X10^3/uL (0.83-4.51); Absolute Neutrophil Count 3.4 X10^3/uL (2.0-7.7); Basophil# 0.04 X10^3/uL; Basophil% 0.6 % (0-1); Eosinophil# 0.34 X10^3/uL; Eosinophils% 4.8 % (0-5); Hemoglobin 12.1 g/dL (12.0-15.0); Lymphocyte # 2.59 X10^3/ul (0.83-4.51); Lymphocyte % 36.3 % (19-41); Mean Corp Hgb Conc 31.8 g/dL (32-36); Mean Corpuscular Hgb 30.9 pg (27.0-32.0); Mean Corpuscular Volume 96.9 fL (81-99); Mean Platelet Vol. 10.4 fl (6.2-12.0); Monocyte# 0.79 X10^3/uL; Monocyte% 11.1 % (0-10); NRBC Flagged by Analyzer 0 % (0-5); Neutrophil # 3.36 X10^3/uL (2.7-7.7); Neutrophil % 46.9 % (47-70); Platelet Count 278 K/mm3 (150-450); RBC Distribution Width CV 13.7 % (11.6-14.6); RBC Distribution Width SD 48.5 fl (35.1-43.9); Red Blood Count 3.92 M/mm3 (4.2-5.4); White Blood Count 7.1 K/mm3 (4.4-11.0)
[2020-11-01 12:46] LABS: Vitamin D,25 Hydroxy 23.7 ng/mL
[2020-11-01 13:11] LABS: ALB/GLOB Ratio 0.8 RATIO (0.9-2.4); AST(SGOT) 26 U/L (15-37); Alanine Aminotransfer ALT/SGPT 33 U/L (13-56); Albumin, Serum 3.3 g/dL (3.2-5.0); Alkaline Phosphatase 117 U/L (45-117); Anion Gap 6 (5-15); BUN 19 mg/dL (7-18); BUN/Creat Ratio 20.9 RATIO (10-20); Calcium,Total 8.9 mg/dL (8.5-10.1); Chloride 105 mmol/L (98-107); Creatinine, Serum 0.91 mg/dL (0.55-1.02); EST Glomerular Filtration Rate 63 mL/min (>60); Est Glom Filt Rate - Afr Amer 76 mL/min (>60); Globulin 3.9 g/dL (2.2-4.2); Glucose 97 mg/dL (74-106); Potassium 4.9 mmol/L (3.5-5.1); Protein, Total 7.2 g/dL (6.4-8.2); Sodium Level 138 mmol/L (136-145); Thyroid Stim Hormone (TSH) 1.81 uIU/mL (0.358-3.74)
== END ==
PROVIDERS: PCP Family Medicine Geriatric Medicine; Visit Provider Family Medicine Geriatric Medicine
DX: E55.9 Vitamin D deficiency, unspecified (principal); I10 Essential (primary) hypertension
CPT/HCPCS: 36415; 80053; 82306; 84443; 85025

== ENCOUNTER 2020-11-14 06:40 | Day surgery (SDC) | payer MEDICARE, OTHER, SELFPAY ==
--- NOTE | 2020-11-13 23:53 | HP.PCM_ITS ---
History and Physical Date of Admission: 11/14/20 HISTORY OF PRESENT ILLNESS 80 YEAR OLD WOMAN PRESENTS WITH A LESION LEFT NECK THAT HAD INCREASED IN SIZE OVER THE LAST SEVERAL MONTHS AND HAD BECOME RAISED IN CONFIGURATION AND DEVELOPED IRREGULAR BORDERS AND SOME CRUSTINESS. IT WAS SHAVE BIOPSIED ON 10/10/20. IT SHOWED A BASAL CELL CARCINOMA. SHE DENIES FEVER. SHE DENIES TRAUMA. SHE DENIES BLEEDING. SHE HAS NO OTHER CONCERNS. SHE PRESENTS TODAY FOR FURTHER EVALUATION AND TREATMENT. PAST MEDICAL HISTORY Anemia Arthritis Basal cell carcinoma of left side of neck Family history of skin cancer H/O hiatal hernia HTN (hypertension) Hypercholesteremia Hypokalemia Multiple thyroid nodules PAST SURGICAL HISTORY tubal ligation colonoscopy laparoscopic cholecystectomy ALLERGIES codeine Penicillins Sulfa (Sulfonamide Antibiotics) MEDICATIONS primidone atenolol furosemide potassium chloride cholecalciferol (vitamin D3) famotidine iron polysacch cplx (iron-vit I57-eobwn acid) FAMILY HISTORY Mother - CAD (coronary artery disease), Hypertension, Diabetes Father - Diabetes, Hypertension, CAD (coronary artery disease), CVA (cerebral vascular accident) Sister - Diabetes Brother - Diabetes Family history of skin cancer SOCIAL HISTORY Smoking Status: Former smoker alcohol intake: current alcohol intake frequency: holidays/special occasions only substance use type: does not use REVIEW OF SYSTEMS General - Denies fever, fatigue, and weight loss. Eyes - Denies cataracts and glaucoma. ENT - Denies nasal congestion and sore throat. Endocrine - Denies excessive thirst and urination. Skin - HAD ENLARGING LESION LEFT NECK THAT WAS BIOPSIED ON 10/10/20 AND WAS A BASAL CELL CARCINOMA. THERE IS A FAMILY HISTORY OF SKIN CANCER. Musculoskeletal - Denies joint pain, joint stiffness, weakness of muscles and joints, back pain, and arthritis. Neuro - Denies headaches. Cardiovascular - Denies chest pain, fatigue, and shortness of breath with exertion. Psych - Denies anxiety and depression. Respiratory - Denies chronic cough and shortness of breath. Gastrointestinal - Denies nausea, vomiting, and constipation. HAS DIARRHEA. Hematologic - Denies abnormal bruising and bleeding. Genitourinary - Denies hematuria and urinary frequency. HAS INCONTINENCE. PHYSICAL EXAMINATION General - Alert and Oriented. HEENT - PERRL. EOMI. Throat is clear. No suspicious lesions noted. Neck - Supple and nontender. No cervical adenopathy. ON THE LEFT NECK IS A BIOPSY SITE THAT MEASURES 8 MM. BIOPSY SHOWED BASAL CELL CARCINOMA. NO ULCERATION. LESION IS NONTENDER. No OTHER suspicious lesions noted. Lungs - Clear to auscultation. Heart - Regular rate and rhythm. Abdomen - Soft and nondistended. No suspicious lesions noted. Extremities - FROM. No axillary adenopathy. Radial pulses are palpable. No suspicious lesions noted. BACK - No suspicious lesions noted. Neuro - CN II-XII grossly intact. Psych - Normal mood and affect. ASSESSMENT 1. 8 MM BASAL CELL CARCINOMA LEFT NECK. 2. FAMILY HISTORY OF SKIN CANCER. PLAN PATHOLOGY REVIEWED FROM 10/10/20. IT SHOWED A BASAL CELL CARCINOMA AND WAS A SHAVE BIOPSY. RECOMMEND EXCISION OF THIS BASAL CELL CARCINOMA LEFT NECK WITH A MARGIN SEND IT TO PATHOLOGY FOR ANALYSIS TO RULE OUT CARCINOMA AT THE MARGINS. RECONSTRUCTION MAY BE WITH A SKIN FLAP. SURGERY WILL BE DONE UNDER LOCAL ANESTHESIA AND IV SEDATION ON AN OUTPATIENT BASIS. Patient was informed of the risks and complications of the procedure including alternatives to surgery. These were discussed with the patient personally. Patient voices understanding and wishes to proceed. Some of the risks and complications were included in a form from the [employer]. We discussed the current risks associated with COVID-19. While it is understood that there is a community spread of COVID-19, the risk of fabian COVID-19 while at [facility] ([facility]) is very low; however, the risk cannot be completely mitigated because of the community spread of the disease. We discussed in detail the risk of exposure to and/or potential harm posed by the COVID-19 virus with having a surgery/procedure at this time versus the risk of delaying the surgery/procedure. It is not possible to know either the risk of delaying the surgery or procedure or chance of getting an infection with perfect accuracy, but a joint decision was made to proceed at this time with the scheduled surgery/procedure as indicated on the consent form. Patient was notified that we will need to comply with any screening or testing [facility] wishes to perform or that surgery may be delayed for any positive results. Procedure Criteria Procedure Type:?Elective COVID Risk Discussion: The surgeon/proceduralist and patient have discussed in detail the risk of exposure to and/or potential harm posed by the COVID-19 virus with having a surgery/procedure at this time versus the risk of delaying the surgery/procedure.? It is not possible to know either the risk of delaying the surgery or procedure or chance of getting an infection with perfect accuracy, but a joint decision was made between the patient and the surgeon/proceduralist to proceed at this time with the scheduled surgery/procedure as indicated on the consent form.
[2020-11-14 07:05] VITALS: BP 136/55; PULSE 67; RESP 18; TEMP 36.1; O2SAT 96; BMI 33.3
[2020-11-14] MEDS: Lactated Ringers 1,000 ML 100 ML IV (07:05)
--- NOTE | 2020-11-14 08:30 | LES_PTH ---
PATIENT: LEONARDO MORAN LOC: [facility] U#:[id number] AGE/SX: 80/F ROOM: RE11/14/[address]: Dr. Robert Laboy MD : 1940 BED: DIS: 11/14/2020 SPEC #: [id number] RECD: 11/14/20 11:36 STATUS: RAPHAEL REQ #: [id number] RAVINDRA: 11/14/20 08:[address]: Robert Laboy DEPT: SURGICAL PATHOLOGY RECD BY: Kaylin Yung ENTERED: 11/14/20 12:54 SP TYPE: Lesion OTHR DR: Dr. Abraham Gallo MD Tissues: Skin of neck, NOS Procedures: Surgery Specimen Level IV HEADER OPERATION: Excision basal cell carcinoma, left neck PRE-OP DIAGNOSIS: Basal cell carcinoma left neck, 8 mm TISSUE SUBMITTED: Basal cell carcinoma, left neck MICROSCOPIC DIAGNOSIS Skin of left neck, excision: Basal cell carcinoma (6.1mm), completely excised. Solar elastosis. AM:am 11/15/20 MICROSCOPIC DESCRIPTION Slides are reviewed. GROSS DESCRIPTION Received in fixative is one container labeled with the patient's name and designated lesion left neck. The specimen consists of an oriented ellipse of skin measuring 2.5 x 1.5 x 0.5cms. The specimen is inked as follows: 12 0?clock ? black, 3 o?clock ? green, 6 o?clock ? blue and 9 o?clock ? yellow. The specimen is serially sectioned and totally submitted in two cassettes as follows; 1 ? tips, 2- remainder of the specimen./ AM:am11/14/20 TC:0 CPT:71729
[2020-11-14] MEDS: Lidocaine 1% /Epi 1:100 (20ml) 20 ML Vial (09:15)
[2020-11-14] MEDS: Mupirocin Ointment 22gm Tube 1 APPLIC (09:45)
--- NOTE | 2020-11-14 09:47 | OP.PCM_ITS ---
Problems Associated Problem List Diagnoses (1) Basal cell carcinoma of left side of neck: (2) Family history of skin cancer: Report of Operation Date of Procedure: 11/14/20 Pre-Operative Diagnosis: 1. 8 mm basal cell carcinoma left neck. 2. Family history of skin cancer. Post-Operative Diagnosis: Same. Surgery/Procedure Performed:: Excision 8 mm basal cell carcinoma left neck with rhomboid transposition skin flap reconstruction (5.12 cm2). Description of Surgical Findings:: 80 YEAR OLD WOMAN PRESENTS WITH A LESION LEFT NECK THAT HAD INCREASED IN SIZE OVER THE LAST SEVERAL MONTHS AND HAD BECOME RAISED IN CONFIGURATION AND DEVELOPED IRREGULAR BORDERS AND SOME CRUSTINESS. IT WAS SHAVE BIOPSIED ON 10/10/20. IT SHOWED A BASAL CELL CARCINOMA. SHE DENIES FEVER. SHE DENIES TRAUMA. SHE DENIES BLEEDING. SHE HAS NO OTHER CONCERNS. Patient was informed of the risks and complications of the procedure including alternatives to surgery. These were discussed with the patient personally. Patient voices understanding and wishes to proceed. Some of the risks and complications were included in a form from the [employer] [employer]. Surgeon: Robert Laboy music store manager: None Type of Anesthesia: General Specimen's removed: Basal cell carcinoma left neck to Pathology. Drains: None. Estimated Blood Loss (mL): 10. Description of Procedure: Patient was taken to OR in supine position and was placed under general anesthesia. The left neck was prepped and draped in the usual fashion. A small bump was placed under the left neck and shoulder, and this gave us good exposure.SCD's were placed for DVT prophylaxis. Perioperative antibiotics were given intravenously. Using xylocaine with epinephrine, the lesion left neck was infiltrated. After waiting 5 minutes for the anesthetic to take effect, I excised the basal cell carcinoma left neck in a rhomboid fashion with a 4 mm margin in all directions thus making it a 1.6 cm excision. A suture was marked at 12 oclock position for pathology orientation. The lesion was then sent to Pathology for analysis to rule out carcinoma at the margins. A rhomboid transposition skin flap was then designed adjacent to the defect. Incisions were made and the rhomboid flap was elevated on a subcutaneous pedicle and easily transposed into the carcinoma wound defect with minimal tension and minimal distortion. Hemostasis was obtained with electrocautery. The wounds were closed in a layered fashion after the rhomboid flap was transposed into the defect. The deep dermis and subcutaneous tissue was approximated with 5-0 Monocryl interrupted sutures. The skin was approximated with 5-0 Prolene simple interrupted sutures. Antibiotic ointment was applied to the suture line followed by Op-site dressing. No vascular compromise was seen on the skin flaps. The size of the defect (1.6 cm x 1.6 cm or 2.56 cm2) and the size of the flap used to close the defect was the same 2.56 cm2 and the total is 5.12 cm2. Patient tolerated the procedure well and was sent to PACU in satisfactory condition. Patient will be sent home on antibiotics and pain medication. She will keep her head elevated during the initial postoperative period. Patient will followup in a week for a wound check and for discussion of the pathology report and for removal of the sutures. Grafts/Implants Used: None. Complications None. Admit VTE Documentation VTE Present on Admission: No VTE Mechan Device Prophylaxis: SCD's VTE Pharm Prophylaxis ordered?: No Addendum Addendum: Surgery Charges CPT - 65018 ICD-10 - C44.41, Z80.8
--- NOTE | 2020-11-14 09:51 | PCM.DC ---
Discharge Instructions Diet Discharge Diet: No restrictions Activity Discharge Activity: May Shower (in two days.) and - (keep head elevated. no heavy lifting.) May shower in (days): 2 May resume sexual activity in: No Restrictions Weight Bearing Status: Weight bearing as tolerated Lifting Restrictions: 20 lbs. Keep extremity elevated above heart level: - (elevate head.) Dressing / Incision Call your doctor if your incision/area has: Continuous Slow Oozing, Sudden Increased Bleeding, Increased Pain/ Swelling, Increased Redness, Foul Smelling Discharge and Swelling at the incision site Call your doctor if you observe: Fever of 101 or Higher, Coldness, Increased Pain, Shortness of breath, Chest pain, Calf discomfort and Uncontrolled pain Suture Line Care: - (after operative dressing left neck is removed in two days, apply antibiotic ointment to suture line daily.) Remove Dressing in: 2 days Cleanse incision/area with: - (may get incision wet in the shower in two days.) Follow Up Care Please Follow Up With: Robert Laboy MD When: one week. call [phone] for appt. Test Results: Test results from this visit will be discussed in further detail at your follow-up appointment, if applicable. Discharge Plan Admission Primary Reason for Your Visit: basal cell carcinoma left neck. Attending Provider: Robert Laboy Primary Care Provider: Abraham Gallo Chi Discharge Orders/Prescriptions Prescriptions: New clindamycin HCl [Cleocin HCl] 300 mg capsule 300 mg PO TID 4 Days Qty: 12 RF: 0 oxycodone-acetaminophen [Percocet] 5-325 mg tablet 1 tab PO Q6H PRN (Reason: pain (scale score 7-10)) 5 Days Qty: 20 RF: 0 L.acidoph,saliva-B.bif-S.therm [Acidophilus Probiotic Blend] 175 mg capsule 1 cap PO DAILY Qty: 10 RF: 0 Continued atenolol 25 mg tablet 25 mg PO ONCE RF: 0 furosemide [Lasix] 20 mg tablet 40 mg PO ONCE RF: 0 potassium chloride [Klor-Con] 20 mEq packet 20 meq PO QDAY RF: 0 Ferrex 150 Forte 150-25-1 mg-mcg-mg capsule 1 cap PO DAILY RF: 0 famotidine 40 mg tablet 40 mg PO DAILY RF: 0 cholecalciferol (vitamin D3) [Vitamin D3] 25 mcg (1,000 unit) capsule 25 mcg PO DAILY RF: 0 primidone 50 MG tablet 100 mg PO TID RF: 0 albuterol sulfate 90 mcg/actuation HFA aerosol inhaler 2 puff INHALATION PRN PRN (Reason: SOB) RF: 0 carbidopa-levodopa 25-100 mg tablet 1 tab PO TID RF: 0 Referrals / Follow Up: Abraham Gallo Chi, MD [Primary Care Provider] - Disposition Disposition (needs filled in before D/C Order can be placed): Home, Self Care
[2020-11-14 10:00] VITALS: BP 133/101; BP 136/55; PULSE 110; RESP 18; TEMP 36.9; O2SAT 97
[2020-11-14 10:15] VITALS: BP 112/69; BP 136/55; PULSE 93; RESP 18; O2SAT 93
[2020-11-14 10:30] VITALS: BP 112/62; BP 136/55; PULSE 78; RESP 18; O2SAT 93
[2020-11-14 10:40] VITALS: BP 125/62; BP 136/55; PULSE 81; RESP 18; TEMP 36.4; O2SAT 97
[2020-11-14 11:12] VITALS: BP 136/55
== END 2020-11-14 11:20 | disposition home or self-care (01) ==
LOC: SDC 06:44 → AC 06:44
PROVIDERS: PCP Family Medicine Geriatric Medicine; Referring Provider Surgery; Visit Provider Surgery
PROC: (CPT 14040; principal; 2020-11-14 08:20)
DX: C44.41 Basal cell carcinoma of skin of scalp and neck (principal); I10 Essential (primary) hypertension; E78.00 Pure hypercholesterolemia, unspecified; M19.90 Unspecified osteoarthritis, unspecified site; Z79.899 Other long term (current) drug therapy; Z87.891 Personal history of nicotine dependence; Z80.8 Family history of malignant neoplasm of other organs or systems
CPT/HCPCS: 00300; 14040; 88305; J7120; J2405

== ENCOUNTER → 2021-03-05 14:22 | Outpatient (CLI) | payer MEDICARE, OTHER, SELFPAY ==
[2021-03-05 16:36] LABS: Absolute Lymphocyte Count 2.07 X10^3/uL (0.83-4.51); Absolute Neutrophil Count 5.2 X10^3/uL (2.0-7.7); Basophil# 0.07 X10^3/uL; Basophil% 0.8 % (0-1); Eosinophil# 0.28 X10^3/uL; Eosinophils% 3.4 % (0-5); Hematocrit 37.2 % (37-47); Lymphocyte # 2.07 X10^3/ul (0.83-4.51); Lymphocyte % 24.9 % (19-41); Mean Corp Hgb Conc 32.3 g/dL (32-36); Mean Corpuscular Hgb 31.3 pg (27.0-32.0); Mean Corpuscular Volume 97.1 fL (81-99); Mean Platelet Vol. 10.7 fl (6.2-12.0); Monocyte# 0.69 X10^3/uL; Monocyte% 8.3 % (0-10); NRBC Flagged by Analyzer 0 % (0-5); Neutrophil # 5.15 X10^3/uL (2.7-7.7); Neutrophil % 62.1 % (47-70); Platelet Count 286 K/mm3 (150-450); RBC Distribution Width CV 13.6 % (11.6-14.6); RBC Distribution Width SD 48.5 fl (35.1-43.9); Red Blood Count 3.83 M/mm3 (4.2-5.4); White Blood Count 8.3 K/mm3 (4.4-11.0)
[2021-03-05 16:46] LABS: Anion Gap 8 (5-15); BUN 12 mg/dL (7-18); BUN/Creat Ratio 12.8 RATIO (10-20); Calcium,Total 9.1 mg/dL (8.5-10.1); Chloride 104 mmol/L (98-107); Creatinine, Serum 0.94 mg/dL (0.55-1.02); EST Glomerular Filtration Rate 61 mL/min (>60); Est Glom Filt Rate - Afr Amer 74 mL/min (>60); Glucose 101 mg/dL (74-106); Potassium 4.7 mmol/L (3.5-5.1); Sodium Level 138 mmol/L (136-145)
== END ==
PROVIDERS: PCP Family Medicine Geriatric Medicine; Visit Provider Family Medicine Geriatric Medicine
DX: J41.0 Simple chronic bronchitis (principal)
CPT/HCPCS: 36415; 80048; 85025

== ENCOUNTER → 2021-03-05 14:31 | Outpatient (CLI) | payer MEDICARE, OTHER, SELFPAY ==
--- NOTE | 2021-03-05 14:42 | RAD_ITS ---
STUDY: X-RAY CHEST REASON FOR EXAM: Female, 80 years old. COUGH TECHNIQUE: PA and lateral views of the chest. COMPARISON: 03/03/2019 FINDINGS: The lungs are clear and expanded. There is no demonstrated pleural abnormality. Normal size heart. Moderate-sized hiatal hernia. Normal visualized pulmonary arteries. Normal visualized aortic arch and descending thoracic aorta. Normal visualized thoracic spine. Normal visualized ribs, clavicles, and shoulders. There is no demonstrated abnormality of the visualized soft tissue structures of the upper abdomen. RAD/Chest PA and Lateral IMPRESSION: No active disease. Electronically Signed: Quang Felipe MD at 16:23 EST Tel , Service support ,
== END ==
PROVIDERS: PCP Family Medicine Geriatric Medicine; Referring Provider Family Medicine Geriatric Medicine; Visit Provider Family Medicine Geriatric Medicine
DX: J41.0 Simple chronic bronchitis (principal); R68.83 Chills (without fever)
CPT/HCPCS: 36415; 71046; 80048; 85025; 87635; 87804; 87807; U0005; U0003

== ENCOUNTER 2021-04-30 11:55 | Outpatient (CLI) | payer MEDICARE, OTHER, SELFPAY | END 2021-04-30 23:59 | disposition home or self-care (01) | LOC: PSN 11:58 | PROVIDERS: PCP Family Medicine Geriatric Medicine; Referring Provider Family Medicine Geriatric Medicine; Visit Provider Family Medicine Geriatric Medicine | DX: R68.83 Chills (without fever) (principal) | CPT/HCPCS: 87635; 87804; 87807; C9803; U0003; U0005 ==

== ENCOUNTER 2021-05-06 10:25 | Outpatient (CLI) | payer MEDICARE, OTHER, SELFPAY ==
[2021-05-06 12:18] LABS: Absolute Lymphocyte Count 4.03 X10^3/uL (0.83-4.51); Eosinophil# 0.23 X10^3/uL; Eosinophils% 2.2 % (0-5); Hematocrit 39.4 % (37-47); Lymphocyte # 4.03 X10^3/ul (0.83-4.51); Lymphocyte % 39.3 % (19-41); Mean Corpuscular Hgb 32.1 pg (27.0-32.0); Mean Corpuscular Volume 97.3 fL (81-99); Mean Platelet Vol. 10.3 fl (6.2-12.0); Monocyte# 0.81 X10^3/uL; Monocyte% 7.9 % (0-10); NRBC Flagged by Analyzer 0 % (0-5); Neutrophil # 4.97 X10^3/uL (2.7-7.7); Neutrophil % 48.4 % (47-70); Platelet Count 328 K/mm3 (150-450); RBC Distribution Width CV 13.2 % (11.6-14.6); RBC Distribution Width SD 47.6 fl (35.1-43.9); Red Blood Count 4.05 M/mm3 (4.2-5.4); White Blood Count 10.3 K/mm3 (4.4-11.0)
[2021-05-06 12:34] LABS: Vitamin D,25 Hydroxy 19.6 ng/mL
[2021-05-06 12:50] LABS: ALB/GLOB Ratio 0.8 RATIO (0.9-2.4); AST(SGOT) 18 U/L (15-37); Alanine Aminotransfer ALT/SGPT 12 U/L (13-56); Albumin, Serum 3.3 g/dL (3.2-5.0); Alkaline Phosphatase 110 U/L (45-117); Anion Gap 5 (5-15); BUN 29 mg/dL (7-18); BUN/Creat Ratio 21.3 RATIO (10-20); Calcium,Total 9.5 mg/dL (8.5-10.1); Chloride 104 mmol/L (98-107); Creatinine, Serum 1.36 mg/dL (0.55-1.02); EST Glomerular Filtration Rate 40 mL/min (>60); Est Glom Filt Rate - Afr Amer 48 mL/min (>60); Glucose 93 mg/dL (74-106); Potassium 4.4 mmol/L (3.5-5.1); Protein, Total 7.3 g/dL (6.4-8.2); Sodium Level 140 mmol/L (136-145); Thyroid Stim Hormone (TSH) 2.63 uIU/mL (0.358-3.74)
== END 2021-05-06 23:59 | disposition home or self-care (01) ==
PROVIDERS: PCP Family Medicine Geriatric Medicine; Visit Provider Family Medicine Geriatric Medicine
DX: I10 Essential (primary) hypertension (principal); E55.9 Vitamin D deficiency, unspecified
CPT/HCPCS: 36415; 80053; 82306; 84443; 85025

== ENCOUNTER 2021-06-14 11:48 | Outpatient (CLI) | payer MEDICARE, OTHER, SELFPAY ==
--- NOTE | 2021-06-14 11:50 | US_ITS ---
STUDY: THYROID ULTRASOUND REASON FOR EXAM: Female, 80 years old. THYROID NODULE TECHNIQUE: Ultrasound evaluation of the thyroid was performed with real-time and static kaur-scale imaging. COMPARISON: None. FINDINGS: RIGHT LOBE: The right lobe of the thyroid gland measures 3.8 x 1.5 cm. There is a heterogeneous echotexture. There are no demonstrated solid, cystic or complex lesions. LEFT LOBE: The left lobe of the thyroid gland measures 3.8 x 1.7 cm. There is a homogeneous echotexture. There is a nodule. 13 x 11 mm. This is in the midgland. The lesion is solid / cystic with regular margins and intra-nodular doppler flow. ISTHMUS: The isthmus measures 2 mm. Lymph node visualized on the right measuring 9 x 5 mm. US/Thyroid IMPRESSION: There are left nodules. This nodule is mixed cystic and solid, hyperechoic or isoechoic, [id number], smoothly marginated and contains no echogenic foci. TI-RADS points: 2. TI-RADS category: TR2. This nodule is not suspicious and no FNA or follow-up is necessary. Electronically Signed: Mann Maguire MD at 8:59 EDT ,
== END 2021-06-14 23:59 | disposition home or self-care (01) ==
LOC: US 11:49
PROVIDERS: PCP Family Medicine Geriatric Medicine; Visit Provider Family Medicine Geriatric Medicine
DX: E04.1 Nontoxic single thyroid nodule (principal)
CPT/HCPCS: 76536

== ENCOUNTER → 2021-07-11 | Outpatient (CLI) | payer MEDICARE, OTHER, SELFPAY ==
[2021-07-11 12:43] LABS: Albumin, Serum 3.3 g/dL (3.2-5.0); BUN 21 mg/dL (7-18); BUN/Creat Ratio 19.3 RATIO (10-20); Chloride 108 mmol/L (98-107); Creatinine, Serum 1.09 mg/dL (0.55-1.02); EST Glomerular Filtration Rate 51 mL/min (>60); Est Glom Filt Rate - Afr Amer 62 mL/min (>60); Glucose 98 mg/dL (74-106); Phosphorus 3.3 mg/dL (2.5-4.9); Potassium 4.8 mmol/L (3.5-5.1); Sodium Level 141 mmol/L (136-145)
== END | disposition home or self-care (01) ==
PROVIDERS: PCP Family Medicine Geriatric Medicine; Visit Provider Internal Medicine Nephrology
DX: N25.9 Disorder resulting from impaired renal tubular function, unspecified (principal)
CPT/HCPCS: 36415; 80069

== ENCOUNTER → 2021-11-07 | Outpatient (CLI) | payer MEDICARE, OTHER, SELFPAY ==
[2021-11-07 12:33] LABS: Absolute Neutrophil Count 3.3 X10^3/uL (2.0-7.7); Basophil# 0.06 X10^3/uL; Basophil% 0.9 % (0-1); Eosinophil# 0.28 X10^3/uL; Eosinophils% 4.2 % (0-5); Hematocrit 37.1 % (37-47); Hemoglobin 11.6 g/dL (12.0-15.0); Lymphocyte % 37.1 % (19-41); Mean Corp Hgb Conc 31.3 g/dL (32-36); Mean Corpuscular Hgb 30.9 pg (27.0-32.0); Mean Corpuscular Volume 98.7 fL (81-99); Mean Platelet Vol. 10.3 fl (6.2-12.0); Monocyte% 8.9 % (0-10); NRBC Flagged by Analyzer 0 % (0-5); Neutrophil # 3.27 X10^3/uL (2.7-7.7); Neutrophil % 48.5 % (47-70); Platelet Count 355 K/mm3 (150-450); RBC Distribution Width CV 12.6 % (11.6-14.6); RBC Distribution Width SD 45.2 fl (35.1-43.9); Red Blood Count 3.76 M/mm3 (4.2-5.4); White Blood Count 6.7 K/mm3 (4.4-11.0)
[2021-11-07 12:43] LABS: Vitamin D,25 Hydroxy 18.9 ng/mL
[2021-11-07 12:54] LABS: ALB/GLOB Ratio 0.8 RATIO (0.9-2.4); AST(SGOT) 20 U/L (15-37); Alanine Aminotransfer ALT/SGPT 12 U/L (13-56); Albumin, Serum 3.1 g/dL (3.2-5.0); Alkaline Phosphatase 103 U/L (45-117); Anion Gap 7 (5-15); BUN 18 mg/dL (7-18); Calcium,Total 9.1 mg/dL (8.5-10.1); Chloride 106 mmol/L (98-107); Creatinine, Serum 1.06 mg/dL (0.55-1.02); EST Glomerular Filtration Rate 53 mL/min (>60); Est Glom Filt Rate - Afr Amer 64 mL/min (>60); Globulin 4.1 g/dL (2.2-4.2); Glucose 93 mg/dL (74-106); Potassium 5.5 mmol/L (3.5-5.1); Protein, Total 7.2 g/dL (6.4-8.2); Sodium Level 141 mmol/L (136-145); Thyroid Stim Hormone (TSH) 3.42 uIU/mL (0.358-3.74)
== END | disposition home or self-care (01) ==
LOC: POLAB3 09:04
PROVIDERS: PCP Family Medicine Geriatric Medicine; Visit Provider Family Medicine Geriatric Medicine
DX: E55.9 Vitamin D deficiency, unspecified (principal); I10 Essential (primary) hypertension
CPT/HCPCS: 36415; 80053; 82306; 84443; 85025

== ENCOUNTER → 2021-11-09 | Outpatient (CLI) | payer MEDICARE, OTHER, SELFPAY ==
[2021-11-09 13:56] LABS: Anion Gap 7 (5-15); BUN 17 mg/dL (7-18); BUN/Creat Ratio 17.7 RATIO (10-20); Calcium,Total 9.2 mg/dL (8.5-10.1); Chloride 103 mmol/L (98-107); Creatinine, Serum 0.96 mg/dL (0.55-1.02); EST Glomerular Filtration Rate 59 mL/min (>60); Est Glom Filt Rate - Afr Amer 71 mL/min (>60); Glucose 100 mg/dL (74-106); Potassium 4.5 mmol/L (3.5-5.1); Sodium Level 140 mmol/L (136-145)
== END | disposition home or self-care (01) ==
LOC: LAB 13:21
PROVIDERS: PCP Family Medicine Geriatric Medicine; Referring Provider Family Medicine Geriatric Medicine; Visit Provider Family Medicine Geriatric Medicine
DX: E87.5 Hyperkalemia (principal)
CPT/HCPCS: 36415; 80048

== ENCOUNTER → 2022-01-03 | Outpatient (CLI) | payer MEDICARE, OTHER, SELFPAY | END | disposition home or self-care (01) | LOC: PSN 12:13 | PROVIDERS: PCP Family Medicine Geriatric Medicine; Visit Provider Family Medicine Geriatric Medicine | DX: R68.83 Chills (without fever) (principal) | CPT/HCPCS: 87635; 87804; 87807; C9803; U0003; U0005 ==

== ENCOUNTER → 2022-05-15 | Outpatient (CLI) | payer MEDICARE, OTHER, SELFPAY ==
[2022-05-15 12:52] LABS: Absolute Lymphocyte Count 2.86 X10^3/uL (0.83-4.51); Absolute Neutrophil Count 5.4 X10^3/uL (2.0-7.7); Basophil# 0.09 X10^3/uL; Basophil% 0.9 % (0-1); Eosinophil# 0.59 X10^3/uL; Eosinophils% 6.1 % (0-5); Hemoglobin 11.9 g/dL (12.0-15.0); Lymphocyte # 2.86 X10^3/ul (0.83-4.51); Lymphocyte % 29.7 % (19-41); Mean Corp Hgb Conc 32.2 g/dL (32-36); Mean Corpuscular Hgb 31.4 pg (27.0-32.0); Mean Corpuscular Volume 97.6 fL (81-99); Mean Platelet Vol. 10.4 fl (6.2-12.0); Monocyte# 0.68 X10^3/uL; Monocyte% 7.1 % (0-10); NRBC Flagged by Analyzer 0 % (0-5); Neutrophil # 5.38 X10^3/uL (2.7-7.7); Neutrophil % 55.8 % (47-70); Platelet Count 325 K/mm3 (150-450); RBC Distribution Width CV 12.9 % (11.6-14.6); RBC Distribution Width SD 45.7 fl (35.1-43.9); Red Blood Count 3.79 M/mm3 (4.2-5.4); White Blood Count 9.6 K/mm3 (4.4-11.0)
[2022-05-15 13:04] LABS: Vitamin D,25 Hydroxy 24.4 ng/mL
[2022-05-15 13:10] LABS: ALB/GLOB Ratio 0.8 RATIO (0.9-2.4); AST(SGOT) 26 U/L (15-37); Alanine Aminotransfer ALT/SGPT 20 U/L (13-56); Albumin, Serum 3.2 g/dL (3.2-5.0); Alkaline Phosphatase 107 U/L (45-117); Anion Gap 8 (5-15); BUN 18 mg/dL (7-18); BUN/Creat Ratio 13.6 RATIO (10-20); Calcium,Total 9.1 mg/dL (8.5-10.1); Chloride 102 mmol/L (98-107); Creatinine, Serum 1.32 mg/dL (0.55-1.02); EST Glomerular Filtration Rate 41 mL/min (>60); Est Glom Filt Rate - Afr Amer 49 mL/min (>60); Globulin 4.2 g/dL (2.2-4.2); Glucose 92 mg/dL (74-106); Potassium 4.2 mmol/L (3.5-5.1); Protein, Total 7.4 g/dL (6.4-8.2); Sodium Level 140 mmol/L (136-145); Thyroid Stim Hormone (TSH) 4.26 uIU/mL (0.358-3.74)
== END | disposition home or self-care (01) ==
PROVIDERS: PCP Family Medicine Geriatric Medicine; Visit Provider Family Medicine Geriatric Medicine
DX: I10 Essential (primary) hypertension (principal); E55.9 Vitamin D deficiency, unspecified
CPT/HCPCS: 36415; 80053; 82306; 84443; 85025

== ENCOUNTER → 2022-06-17 | Outpatient (CLI) | payer MEDICARE, OTHER, SELFPAY | END | disposition home or self-care (01) | PROVIDERS: PCP Family Medicine Geriatric Medicine; Referring Provider Family Medicine Geriatric Medicine; Visit Provider Family Medicine Geriatric Medicine | DX: R68.83 Chills (without fever) (principal) | CPT/HCPCS: 87635; 87804; 87807; U0003; U0005 ==

== ENCOUNTER → 2022-07-07 | Outpatient (CLI) | payer MEDICARE, OTHER, SELFPAY ==
[2022-07-07 17:21] LABS: Thyroid Stim Hormone (TSH) 3.24 uIU/mL (0.358-3.74)
== END | disposition home or self-care (01) ==
LOC: POLAB3 14:40
PROVIDERS: PCP Family Medicine Geriatric Medicine; Visit Provider Family Medicine Geriatric Medicine
DX: E03.9 Hypothyroidism, unspecified (principal)
CPT/HCPCS: 36415; 84443

== ENCOUNTER → 2022-07-14 | Outpatient (CLI) | payer MEDICARE, OTHER, SELFPAY ==
--- NOTE | 2022-07-14 13:45 | RAD_ITS ---
STUDY: X-RAY CHEST REASON FOR EXAM: Female, 82 years old. CHRONIC OBSTRUCTIVE PULMONARY DISEASE TECHNIQUE: PA and lateral views of the chest. COMPARISON: Comparison is made with prior study dated March 05, 2021. FINDINGS: Hyperinflation. No acute abnormality is seen. There is no demonstrated pleural abnormality. Normal size heart. Normal mediastinum and jarret. Normal visualized pulmonary arteries. There is atherosclerotic calcification of the aortic arch with tortuosity. There are diffuse degenerative changes of the visualized thoracic spine. Normal visualized ribs, clavicles, and shoulders. Hiatal hernia. Calcification is seen in the left upper quadrant most likely within the left kidney. RAD/Chest PA and Lateral IMPRESSION: Hyperinflation. Stable examination. Hiatal hernia. Electronically Signed: Michael Wynn MD at 14:01 EDT ,
== END | disposition home or self-care (01) ==
LOC: RAD 13:41
PROVIDERS: PCP Family Medicine Geriatric Medicine; Referring Provider Family Medicine Geriatric Medicine; Visit Provider Family Medicine Geriatric Medicine
DX: J44.9 Chronic obstructive pulmonary disease, unspecified (principal)
CPT/HCPCS: 71046

== ENCOUNTER → 2022-11-12 | Outpatient (CLI) | payer MEDICARE, OTHER, SELFPAY ==
[2022-11-12 11:48] LABS: Absolute Lymphocyte Count 2.45 X10^3/uL (0.83-4.51); Absolute Neutrophil Count 3.4 X10^3/uL (2.0-7.7); Basophil# 0.05 X10^3/uL; Basophil% 0.7 % (0-1); Eosinophil# 0.36 X10^3/uL; Eosinophils% 5.3 % (0-5); Hematocrit 37.4 % (37-47); Hemoglobin 11.9 g/dL (12.0-15.0); Lymphocyte # 2.45 X10^3/ul (0.83-4.51); Lymphocyte % 35.8 % (19-41); Mean Corp Hgb Conc 31.8 g/dL (32-36); Mean Corpuscular Hgb 30.7 pg (27.0-32.0); Mean Corpuscular Volume 96.6 fL (81-99); Mean Platelet Vol. 10.7 fl (6.2-12.0); Monocyte# 0.58 X10^3/uL; Monocyte% 8.5 % (0-10); NRBC Flagged by Analyzer 0 % (0-5); Neutrophil # 3.38 X10^3/uL (2.7-7.7); Neutrophil % 49.4 % (47-70); Platelet Count 258 K/mm3 (150-450); RBC Distribution Width CV 13.2 % (11.6-14.6); RBC Distribution Width SD 47.1 fl (35.1-43.9); Red Blood Count 3.87 M/mm3 (4.2-5.4); White Blood Count 6.8 K/mm3 (4.4-11.0)
[2022-11-12 12:05] LABS: Vitamin D,25 Hydroxy 22.8 ng/mL
[2022-11-12 12:09] LABS: ALB/GLOB Ratio 0.8 RATIO (0.9-2.4); AST(SGOT) 12 U/L (15-37); Alanine Aminotransfer ALT/SGPT 7 U/L (13-56); Albumin, Serum 3.3 g/dL (3.2-5.0); Alkaline Phosphatase 111 U/L (45-117); Anion Gap 4 (5-15); BUN 18 mg/dL (7-18); BUN/Creat Ratio 17.1 RATIO (10-20); Calcium,Total 9.1 mg/dL (8.5-10.1); Chloride 105 mmol/L (98-107); Creatinine, Serum 1.05 mg/dL (0.55-1.02); EST Glomerular Filtration Rate 53 mL/min (>60); Est Glom Filt Rate - Afr Amer 64 mL/min (>60); Globulin 3.9 g/dL (2.2-4.2); Glucose 100 mg/dL (74-106); Potassium 4.7 mmol/L (3.5-5.1); Protein, Total 7.2 g/dL (6.4-8.2); Sodium Level 140 mmol/L (136-145); Thyroid Stim Hormone (TSH) 3.39 uIU/mL (0.358-3.74)
== END | disposition home or self-care (01) ==
PROVIDERS: PCP Family Medicine Geriatric Medicine; Visit Provider Family Medicine Geriatric Medicine
DX: I10 Essential (primary) hypertension (principal); E55.9 Vitamin D deficiency, unspecified
CPT/HCPCS: 36415; 80053; 82306; 84443; 85025

== ENCOUNTER → 2023-05-29 | Outpatient (CLI) | payer MEDICARE, OTHER, SELFPAY ==
[2023-05-29 12:12] LABS: Absolute Lymphocyte Count 2.13 X10^3/uL (0.83-4.51); Absolute Neutrophil Count 4.4 X10^3/uL (2.0-7.7); Basophil# 0.05 X10^3/uL; Basophil% 0.7 % (0-1); Eosinophil# 0.27 X10^3/uL; Eosinophils% 3.6 % (0-5); Hematocrit 37.4 % (37-47); Hemoglobin 11.6 g/dL (12.0-15.0); Lymphocyte # 2.13 X10^3/ul (0.83-4.51); Mean Corpuscular Hgb 30.4 pg (27.0-32.0); Mean Corpuscular Volume 97.9 fL (81-99); Mean Platelet Vol. 10.5 fl (6.2-12.0); Monocyte% 9.2 % (0-10); NRBC Flagged by Analyzer 0 % (0-5); Neutrophil % 57.8 % (47-70); Platelet Count 272 K/mm3 (150-450); RBC Distribution Width CV 13.4 % (11.6-14.6); RBC Distribution Width SD 47.9 fl (35.1-43.9); Red Blood Count 3.82 M/mm3 (4.2-5.4); White Blood Count 7.6 K/mm3 (4.4-11.0)
[2023-05-29 12:26] LABS: Vitamin D,25 Hydroxy 25.1 ng/mL
[2023-05-29 12:59] LABS: ALB/GLOB Ratio 0.7 RATIO (0.9-2.4); AST(SGOT) 21 U/L (15-37); Alanine Aminotransfer ALT/SGPT 12 U/L (13-56); Albumin, Serum 3.1 g/dL (3.2-5.0); Alkaline Phosphatase 129 U/L (45-117); Anion Gap 7 (5-15); BUN 17 mg/dL (7-18); BUN/Creat Ratio 15.7 RATIO (10-20); Calcium,Total 9.1 mg/dL (8.5-10.1); Chloride 105 mmol/L (98-107); Creatinine, Serum 1.08 mg/dL (0.55-1.02); EST Glomerular Filtration Rate 51 mL/min (>60); Est Glom Filt Rate - Afr Amer 62 mL/min (>60); Globulin 4.3 g/dL (2.2-4.2); Glucose 104 mg/dL (74-106); Potassium 4.6 mmol/L (3.5-5.1); Protein, Total 7.4 g/dL (6.4-8.2); Sodium Level 139 mmol/L (136-145); Thyroid Stim Hormone (TSH) 2.89 uIU/mL (0.358-3.74)
== END | disposition home or self-care (01) ==
LOC: POLAB3 11:21
PROVIDERS: PCP Family Medicine Geriatric Medicine; Visit Provider Family Medicine Geriatric Medicine
DX: I10 Essential (primary) hypertension (principal); E55.9 Vitamin D deficiency, unspecified
CPT/HCPCS: 36415; 80053; 82306; 84443; 85025

== ENCOUNTER → 2023-11-26 | Outpatient (CLI) | payer MEDICARE, OTHER, SELFPAY ==
[2023-11-26 11:05] LABS: Absolute Lymphocyte Count 2.25 X10^3/uL (0.83-4.51); Absolute Neutrophil Count 3.6 X10^3/uL (2.0-7.7); Basophil# 0.04 X10^3/uL; Basophil% 0.6 % (0-1); Eosinophil# 0.49 X10^3/uL; Hematocrit 37.1 % (37-47); Hemoglobin 11.8 g/dL (12.0-15.0); Lymphocyte # 2.25 X10^3/ul (0.83-4.51); Mean Corp Hgb Conc 31.8 g/dL (32-36); Mean Corpuscular Volume 97.4 fL (81-99); Mean Platelet Vol. 10.6 fl (6.2-12.0); Monocyte% 8.5 % (0-10); NRBC Flagged by Analyzer 0 % (0-5); Neutrophil # 3.63 X10^3/uL (2.7-7.7); Neutrophil % 51.6 % (47-70); Platelet Count 287 K/mm3 (150-450); RBC Distribution Width CV 13.6 % (11.6-14.6); RBC Distribution Width SD 48.6 fl (35.1-43.9); Red Blood Count 3.81 M/mm3 (4.2-5.4)
[2023-11-26 11:37] LABS: Vitamin D,25 Hydroxy 19.8 ng/mL
[2023-11-26 11:56] LABS: ALB/GLOB Ratio 0.8 RATIO (0.9-2.4); AST(SGOT) 11 U/L (15-37); Alanine Aminotransfer ALT/SGPT < 6 U/L (13-56); Albumin, Serum 3.1 g/dL (3.2-5.0); Alkaline Phosphatase 118 U/L (45-117); Anion Gap 4 (5-15); BUN 22 mg/dL (7-18); Chloride 103 mmol/L (98-107); Creatinine, Serum 1.22 mg/dL (0.55-1.02); EST Glomerular Filtration Rate 45 mL/min (>60); Est Glom Filt Rate - Afr Amer 54 mL/min (>60); Glucose 117 mg/dL (74-106); Potassium 4.4 mmol/L (3.5-5.1); Protein, Total 7.1 g/dL (6.4-8.2); Sodium Level 138 mmol/L (136-145)
== END | disposition home or self-care (01) ==
PROVIDERS: PCP Family Medicine Geriatric Medicine; Visit Provider Family Medicine Geriatric Medicine
DX: I10 Essential (primary) hypertension (principal); E55.9 Vitamin D deficiency, unspecified
CPT/HCPCS: 36415; 80053; 82306; 84443; 85025

== ENCOUNTER → 2023-12-23 | Outpatient (CLI) | payer MEDICARE, OTHER, SELFPAY ==
[2023-12-23 17:18] LABS: Absolute Lymphocyte Count 2.22 X10^3/uL (0.83-4.51); Absolute Neutrophil Count 5.1 X10^3/uL (2.0-7.7); Basophil# 0.04 X10^3/uL; Basophil% 0.5 % (0-1); Eosinophil# 0.28 X10^3/uL; Eosinophils% 3.4 % (0-5); Hematocrit 36.8 % (37-47); Hemoglobin 11.6 g/dL (12.0-15.0); Lymphocyte # 2.22 X10^3/ul (0.83-4.51); Lymphocyte % 26.8 % (19-41); Mean Corp Hgb Conc 31.5 g/dL (32-36); Mean Corpuscular Hgb 31.1 pg (27.0-32.0); Mean Corpuscular Volume 98.7 fL (81-99); Mean Platelet Vol. 10.9 fl (6.2-12.0); Monocyte% 7.2 % (0-10); NRBC Flagged by Analyzer 0 % (0-5); Neutrophil # 5.12 X10^3/uL (2.7-7.7); Neutrophil % 61.7 % (47-70); Platelet Count 257 K/mm3 (150-450); RBC Distribution Width CV 13.5 % (11.6-14.6); RBC Distribution Width SD 48.9 fl (35.1-43.9); Red Blood Count 3.73 M/mm3 (4.2-5.4); White Blood Count 8.3 K/mm3 (4.4-11.0)
[2023-12-23 17:26] LABS: Erythrocyte Sedimentation Rate 22 mm/hr (0-30)
[2023-12-23 18:11] LABS: Anion Gap 8 (5-15); BUN 22 mg/dL (7-18); BUN/Creat Ratio 18.2 RATIO (10-20); Calcium,Total 8.7 mg/dL (8.5-10.1); Chloride 103 mmol/L (98-107); Creatinine, Serum 1.21 mg/dL (0.55-1.02); EST Glomerular Filtration Rate 45 mL/min (>60); Est Glom Filt Rate - Afr Amer 54 mL/min (>60); Glucose 128 mg/dL (74-106); Sodium Level 139 mmol/L (136-145)
== END | disposition home or self-care (01) ==
LOC: POLAB3 17:03
PROVIDERS: PCP Family Medicine Geriatric Medicine; Visit Provider Family Medicine Geriatric Medicine
DX: I10 Essential (primary) hypertension (principal); I63.9 Cerebral infarction, unspecified
CPT/HCPCS: 36415; 80048; 85025; 85652; 86140

== ENCOUNTER → 2024-01-07 | Outpatient (CLI) | payer MEDICARE, OTHER, SELFPAY ==
--- NOTE | 2024-01-07 13:00 | CDU_ITS ---
Reason For Study: Ischemic stroke Rt. Velocities/BP Lt. Velocities/BP Prox CCA 73/9.7 cm/sec. Prox CCA 70.4/12.6 cm/sec. Mid CCA 70.2/10.7 cm/sec. Mid CCA 63/11.4 cm/sec. Dist CCA 61.7/9.7 cm/sec. Dist CCA 51.9/12.6 cm/sec. Prox ICA 59.8/13.5 cm/sec. Prox ICA 41.5/10.7 cm/sec. Mid ICA 56/15.4 cm/sec. Mid ICA 70.3/18.1 cm/sec. Dist ICA 68.5/11.3 cm/sec. Dist ICA 59.5/19.5 cm/sec. Rt. ICA/CCA = 0.97. Lt. ICA/CCA = 1.12. Prox ECA 36.2 cm/sec. Prox ECA 48.3/6.5 cm/sec. Rt. Vert. 43.7/9.7 cm/sec. Lt. Vert. 43.2/6.9 cm/sec. Right Extracranial There is intimal thickening but no significant atherosclerotic plaque noted in the right common carotid artery. There is heterogeneous, irregular atherosclerotic plaque noted in the right internal carotid artery. There is intimal thickening but no significant atherosclerotic plaque noted in the right external carotid artery. Antegrade flow is noted in the right vertebral artery. Left Extracranial There is intimal thickening but no significant atherosclerotic plaque noted in the left common carotid artery. There is intimal thickening but no significant atherosclerotic plaque noted in the left internal carotid artery. The left internal carotid artery is very tortuous. There is intimal thickening but no significant atherosclerotic plaque noted in the left external carotid artery. Antegrade flow is noted in the left vertebral artery. Procedure Carotid Duplex 38370. This is a Carotid Duplex examination using B-mode, color flow and specral Doppler. The study was technically difficult. Exam performed in department. VL/Carotid Duplex Ultrasound Interpretation Summary Mild (<50%) stenosis right extracranial internal carotid. Normal left extracranial internal carotid. Patent and antegrade vertebrals bilaterally. Ordering Physician: Abraham Gallo Chi Referring Physician: Abraham Gallo Chi Performed By: Ketty Rashid RVT
--- NOTE | 2024-01-07 13:00 | ECHOD_ITS ---
Reason For Study: STROKE Procedure This was a 2D Doppler, Color Flow transthoracic echocardiogram. Exam performed in department. Left Ventricle Normal LV size. Left ventricular systolic function is normal. The left ventricular ejection fraction is 60 %. Stage 1 diastolic dysfunction. No regional wall motion abnormalities noted. Right Ventricle Normal RV size. Normal systolic function. Atria Normal left atrium. Normal right atrium. Bubble contrast study negative for right to left interatrial shunt. Mitral Valve Normal mitral valve. Mild (1+) eccentric mitral valve insufficiency. Tricuspid Valve Normal tricuspid valve. Mild tricuspid valve insufficiency. Pulmonary artery systolic pressure is 28 mmHg. Aortic Valve Trisinus/trileaflet aortic valve. Mild focal aortic valve calcification. Pulmonic Valve Normal pulmonic valve. Great Vessels Mildly dilated aortic root. The pulmonary artery is normal size. Inferior vena cava collapse with respiration. Pericardium/Pleural No pericardial effusion. Medication Performed a rapid injection of agitated mix of 9 cc saline and 1cc air to assess for atrial septal defect. MMode/2D Measurements & Calculations LVIDd: 5.2 cm IVSd: 1.0 cm LVOT diam: 2.0 cm LVIDs: 3.4 cm LVPWd: 0.97 cm RVDd: 3.2 cm FS: 35.3 % LVOT area: 3.0 cm2 asc Aorta Diam: 4.1 cm LAV(MOD-bp): 32.0 ml LVAd ap4: 20.5 cm2 LAV(MOD-bp) Indexed: 16.2 ml/m2 LVLd ap4: 6.2 cm LAV(MOD-sp2): 32.1 ml EDV(MOD-sp4): 54.1 ml LAV(MOD-sp4): 31.1 ml EDV(sp4-el): 57.2 ml LVAs ap4: 11.4 cm2 LVLs ap4: 5.8 cm ESV(MOD-sp4): 18.6 ml ESV(sp4-el): 19.0 ml EF(MOD-sp4): 65.6 % EF(sp4-el): 66.8 % LVAd ap2: 20.0 cm2 SV(MOD-sp4): 35.4 ml SV(MOD-sp2): 36.0 ml LVLd ap2: 6.1 cm SI(MOD-sp4): 17.9 ml/m2 SI(MOD-sp2): 18.2 ml/m2 EDV(MOD-sp2): 52.9 ml EDV(sp2-el): 55.7 ml LVAs ap2: 10.5 cm2 LVLs ap2: 5.2 cm ESV(MOD-sp2): 16.8 ml ESV(sp2-el): 18.0 ml EF(MOD-sp2): 68.2 % SV(sp4-el): 38.2 ml Ao sinus diam: 3.[address] Junction: 2.8 cm LA dimension(2D): 3.2 cm LA A4 area: 13.3 cm2 RA A4 area: 9.1 cm2 TAPSE: 1.8 cm Time Measurements MV dec time: 0.17 sec Doppler Measurements & Calculations MV E max chu: 89.4 cm/sec Lat Peak E' Chu: 8.7 cm/sec Med Peak E' Chu: 4.9 cm/sec MV A max chu: 105.9 cm/sec E/E' lat: 10.3 E/E' med: 18.4 MV E/A: 0.84 MV dec slope: 521.2 cm/sec2 Ao V2 max: 161.4 cm/sec LV V1 max: 103.9 cm/sec Ao max P.4 mmHg LV V1 max P.3 mmHg Ao V2 mean: 111.5 cm/sec LV V1 mean P.7 mmHg Ao mean P.5 mmHg LV V1 mean: 79.1 cm/sec Ao V2 VTI: 37.2 cm LV V1 VTI: 27.5 cm AV (velocity ratio): 0.74 ANDREIA(I,D): 2.2 cm2 ANDREIA(V,D): 2.0 cm2 SV(LVOT): 83.5 ml PA V2 max: 91.2 cm/sec TR max chu: 248.4 cm/sec PA max PG (full): 1.6 mmHg TR max P.7 mmHg ECHO/Echo Complete Interpretation Summary Normal LV size. Left ventricular systolic function is normal. The left ventricular ejection fraction is 60 %. Bubble contrast study negative for right to left interatrial shunt. Stage 1 diastolic dysfunction. Mildly dilated aortic root. Ordering Physician: Abraham Gallo Chi Referring Physician: Abraham Gallo Chi Performed By: Marion Pearson RDCS
== END | disposition home or self-care (01) ==
LOC: CVS 12:59
PROVIDERS: PCP Family Medicine Geriatric Medicine; Referring Provider Family Medicine Geriatric Medicine; Visit Provider Family Medicine Geriatric Medicine
DX: H34.232 Retinal artery branch occlusion, left eye (principal); R94.31 Abnormal electrocardiogram [ECG] [EKG]
CPT/HCPCS: 93306; 93880

== ENCOUNTER → 2024-01-25 | Outpatient (CLI) | payer MEDICARE, OTHER, SELFPAY ==
--- NOTE | 2024-01-25 13:01 | MRI_ITS ---
STUDY: MRA NECK WITH AND WITHOUT CONTRAST REASON FOR EXAM: Female, 83 years old. ISCHEMIC STROKE TECHNIQUE: 3-D [id number] (TOF) imaging was performed in an 1.5 T MRI scanner. CLARISCAN 19 CC IV was administered for the contrast enhanced images. COMPARISON: None. FINDINGS: RIGHT CAROTID ARTERIES: Normal right common carotid artery (CCA). There is mild atherosclerotic plaque formation with minimal narrowing of the right carotid bulb. There is mild atherosclerotic plaque formation of the origin of the right internal carotid artery with less than 50% cross sectional diameter stenosis. There is atherosclerotic tortuous elongation of the cervical portion of the right internal carotid artery. There is mild atherosclerotic plaque formation of the origin of the right external carotid artery with less than 50% cross sectional diameter stenosis. LEFT CAROTID ARTERIES: There is atherosclerotic plaque formation, but without a hemodynamically significant stenosis. There is mild atherosclerotic plaque formation with minimal narrowing of the left carotid bulb. There is mild atherosclerotic plaque formation of the origin of the left internal carotid artery with less than 50% cross sectional diameter stenosis. There is atherosclerotic tortuous elongation of the cervical portion of the left internal carotid artery. Normal origin of the left external carotid artery (ECA). VERTEBRAL ARTERIES: Normal antegrade flow within the bilateral vertebral artery without a hemodynamically significant stenosis. MRI/MRA Neck WITH and W/O Contrast IMPRESSION: 1. Mild atherosclerotic plaque and stenosis of the bilateral internal carotid arteries of the neck. Electronically Signed: Chuy Hager MD at 15:18 EST ,
--- NOTE | 2024-01-25 13:01 | MRI_ITS ---
STUDY: MRA OF THE HEAD WITHOUT CONTRAST REASON FOR EXAM: Female, 83 years old. RETINAL ARTERY BRANCH OCCLUSION LEFT EYE TECHNIQUE: 3-D xala-[id number]-[id number] (TOF) imaging was performed with MIPs. The study was performed unenhanced. COMPARISON: MRI of the brain dated January 25, 2024. FINDINGS: Normal bilateral petrous carotid arteries. There is atheromatous plaque formation of the right cavernous carotid artery, with a mild stenosis (less than 50%). There is atheromatous plaque formation of the left cavernous carotid artery, with a mild stenosis (less than 50%). Normal right A1 segments of the anterior cerebral artery. Normal left A1 segments of the anterior cerebral artery. Normal intact anterior communicating artery (ACOM). Normal bilateral A2 segments of the anterior cerebral arteries. Normal right M1 and M2 segments of the middle cerebral arteries, with a normal M1 bifurcation. Normal left M1 and M2 segments of the middle cerebral arteries, with a normal M1 bifurcation. Normal right posterior communicating artery (PCOM). Normal left posterior communicating artery (PCOM). Normal bilateral vertebral arteries. There is tortuosity with elongation of the basilar artery. The visualized bilateral superior cerebellar (SCA) arteries are normal. Normal bilateral P1, P2 and visualized P3 segments of the posterior cerebral arteries. There is no demonstrated aneurysm of the nikolai of [place]. There is no major vessel occlusion or hemodynamically significant stenosis. MRI/MRA Head ONLY without Contrast IMPRESSION: 1. There is no demonstrated aneurysm of the nikolai of [place]. There is no major vessel occlusion or hemodynamically significant stenosis. Electronically Signed: Chuy Hager MD at 15:16 EST ,
--- NOTE | 2024-01-25 13:01 | MRI_ITS ---
STUDY: MRI BRAIN WITHOUT CONTRAST REASON FOR EXAM: Female, 83 years old. RETINAL ARTERY BRANCH OCCLUSION OF LEFT EYE TECHNIQUE: Standardized multiplanar fat and water weighted pulse sequences were obtained. COMPARISON: MRI of the brain dated June 26, 2014 FINDINGS: There is mild cerebral atrophy with widening of the extra-axial spaces and ventricular dilatation. There are a limited number of small white matter hyperintensities, distributed throughout the deep white matter tracts of the cerebral hemispheres, consistent with mild chronic white matter ischemic changes. Normal T2* images of the brain without demonstrated susceptibility artifact. There is no demonstrated hemosiderin stain. There are no demyelinating plagues of the supratentorial brain, brainstem or cerebellum. There are no findings suspicious for multiple sclerosis (MS). Normal bilateral basal ganglia. Normal thalami. There is no extra-axial fluid accumulation. Normal flow voids within the major intracranial circulation suggesting patency by spin echo criteria. Normal sella turcica, pituitary gland, infundibular stalk, optic chiasm and hypothalamus. Normal tectal plate and pineal gland. Normal midbrain, domingo and medulla. Normal cerebellum. Normal basal cisterns. Normal bilateral temporal bones. Normal bilateral internal auditory canals. No demonstrated orbital abnormality, within the constraints of a routine brain study. Normal visualized paranasal sinuses. Normal calvarium and skull base. Normal visualized soft tissue structures. Normal visualized upper cervical spine. MRI/Brain without Contrast IMPRESSION: 1. Involutional and chronic ischemic changes of the brain, as described above. 2. No acute infarct or intracranial hemorrhage. Electronically Signed: Chuy Hager MD at 15:12 EST ,
== END | disposition home or self-care (01) ==
LOC: MRI 12:53
PROVIDERS: PCP Family Medicine Geriatric Medicine; Referring Provider Family Medicine Geriatric Medicine; Visit Provider Family Medicine Geriatric Medicine
DX: H34.232 Retinal artery branch occlusion, left eye (principal); Z86.73 Personal history of transient ischemic attack (TIA), and cerebral infarction without residual deficits
CPT/HCPCS: 70544; 70549; 70551; A9575; A4216

== ENCOUNTER → 2024-04-20 | Outpatient (CLI) | payer MEDICARE, OTHER, SELFPAY ==
--- NOTE | 2024-04-20 15:06 | CT_ITS ---
EXAM: CT Head Without Contrast. CLINICAL HISTORY: Closed head injury due to a fall. COMPARISON: None. TECHNIQUE: Helical imaging of CT head was performed without IV contrast. One or more of the following dose reduction techniques were used: automated exposure control, adjustment of the mA and/or kV according to patient size, use of iterative reconstruction technique. FINDINGS: Cerebral atrophy. BRAIN PARENCHYMA: No evidence for acute hemorrhage or large territory infarct. 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 EXTRA-AXIAL SPACES: No acute extra-axial fluid collection identified. Basal cisterns are patent. MIDLINE SHIFT: None. VENTRICLES: No evidence of hydrocephalus. SCALP SOFT TISSUES: No significant abnormality. CALVARIUM: No acute process. VISUALIZED PARANASAL SINUSES: Air-fluid level seen in the left maxillary sinus. MASTOID AIR CELLS: Grossly clear. CT/Brain/Head without Contrast IMPRESSION: Cerebral atrophy. Questionable old lacunar infarcts in the thalami. Reading Location: [place] [id number]
== END | disposition home or self-care (01) ==
PROVIDERS: PCP Family Medicine Geriatric Medicine; Referring Provider Family Medicine Geriatric Medicine; Visit Provider Family Medicine Geriatric Medicine
DX: S09.90XA Unspecified injury of head, initial encounter (principal)
CPT/HCPCS: 70450

== ENCOUNTER → 2024-05-30 | Outpatient (CLI) | payer MEDICARE, OTHER, SELFPAY ==
[2024-05-30 11:39] LABS: Absolute Lymphocyte Count 1.83 X10^3/uL (0.83-4.51); Absolute Neutrophil Count 4.2 X10^3/uL (2.0-7.7); Basophil# 0.05 X10^3/uL; Basophil% 0.7 % (0-1); Eosinophil# 0.47 X10^3/uL; Eosinophils% 6.4 % (0-5); Hematocrit 36.5 % (37-47); Hemoglobin 11.6 g/dL (12.0-15.0); Lymphocyte # 1.83 X10^3/ul (0.83-4.51); Lymphocyte % 25.1 % (19-41); Mean Corp Hgb Conc 31.8 g/dL (32-36); Mean Corpuscular Hgb 31.1 pg (27.0-32.0); Mean Corpuscular Volume 97.9 fL (81-99); Mean Platelet Vol. 11.3 fl (6.2-12.0); Monocyte# 0.77 X10^3/uL; Monocyte% 10.5 % (0-10); NRBC Flagged by Analyzer 0 % (0-5); Neutrophil # 4.15 X10^3/uL (2.7-7.7); Neutrophil % 56.9 % (47-70); Platelet Count 262 K/mm3 (150-450); RBC Distribution Width SD 50.1 fl (35.1-43.9); Red Blood Count 3.73 M/mm3 (4.2-5.4); White Blood Count 7.3 K/mm3 (4.4-11.0)
[2024-05-30 23:28] LABS: Vitamin D,25 Hydroxy 31.3 ng/mL (30-100)
[2024-05-31 00:22] LABS: ALB/GLOB Ratio 1.2 RATIO (0.9-2.4); AST(SGOT) 26 U/L (<=31); Alanine Aminotransfer ALT/SGPT 7 U/L (<=34); Albumin, Serum 3.7 g/dL (3.4-4.8); Alkaline Phosphatase 108 U/L (35-104); Anion Gap 10 (5-15); BUN 15 mg/dL (4-19); BUN/Creat Ratio 14.8 RATIO (10-20); Calcium,Total 9.3 mg/dL (7.6-11.0); Carbon Dioxide 27.1 mmol/L (21.0-32.0); Chloride 105 mmol/L (98-108); Creatinine, Serum 1.02 mg/dL (0.70-1.20); EST Glomerular Filtration Rate 54 (>60); Globulin 3.1 g/dL (2.2-4.2); Glucose 113 mg/dL (70-99); Potassium 4.9 mmol/L (3.3-5.1); Protein, Total 6.7 g/dL (5.9-8.4); Sodium Level 142 mmol/L (133-145); Total Bilirubin 0.16 mg/dL (0.00-1.30)
== END | disposition home or self-care (01) ==
LOC: POLAB3 11:10
PROVIDERS: PCP Family Medicine Geriatric Medicine; Visit Provider Family Medicine Geriatric Medicine
DX: I10 Essential (primary) hypertension (principal); E55.9 Vitamin D deficiency, unspecified; E03.9 Hypothyroidism, unspecified
CPT/HCPCS: 36415; 80053; 82306; 84443; 85025

== ENCOUNTER → 2024-09-05 | Outpatient (CLI) | payer MEDICARE, OTHER, SELFPAY ==
--- NOTE | 2024-09-05 16:46 | RAD_ITS ---
PROCEDURE: SHOULDER MIN 2 VIEWS 09/05/2024 REASON FOR EXAM: SHOULDER PAIN TECHNIQUE: SHOULDER MIN 2 VIEWS COMPARISON: None FINDINGS: No displaced fracture or traumatic malalignment. There is a large osteophyte from the inferomedial humeral head. Moderate joint space narrowing and osteophyte formation at the acromioclavicular joint. Visualized hemithorax and soft tissues are unremarkable. 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 Of note, there is a prominent osteophyte at the inferomedial aspect of the humeral head. Reading Location: [place]
== END | disposition home or self-care (01) ==
LOC: RAD 16:44
PROVIDERS: PCP Family Medicine Geriatric Medicine; Referring Provider Family Medicine Geriatric Medicine; Visit Provider Family Medicine Geriatric Medicine
DX: M25.511 Pain in right shoulder (principal)
CPT/HCPCS: 73030

== ENCOUNTER → 2024-12-02 | Outpatient (CLI) | payer MEDICARE, OTHER, SELFPAY ==
[2024-12-02 10:32] LABS: Hematocrit 38.8 % (37-47); Hemoglobin 13.0 g/dL (12.0-15.0); Immature Granulocytes Count 0.020 X10^3/uL (0.0-0.0); Mean Corp Hgb Conc 33.5 g/dL (32-36); Mean Corpuscular Volume 98.2 fL (81-99); Mean Platelet Vol. 10.6 fl (6.2-12.0); NRBC Flagged by Analyzer 0 % (0-5); Platelet Count 285 K/mm3 (150-450); RBC Distribution Width CV 13.0 % (11.6-14.6); RBC Distribution Width SD 45.8 fl (35.1-43.9); Red Blood Count 3.95 M/mm3 (4.2-5.4); White Blood Count 8.1 K/mm3 (4.4-11.0)
[2024-12-02 11:36] LABS: Vitamin D,25 Hydroxy 29.0 ng/mL (30-100)
[2024-12-02 11:40] LABS: AST(SGOT) 23 U/L (<=31); Alanine Aminotransfer ALT/SGPT < 5 U/L (<=34); Albumin, Serum 3.7 g/dL (3.4-4.8); Alkaline Phosphatase 140 U/L (35-104); Anion Gap 12 (5-15); BUN 17 mg/dL (4-19); BUN/Creat Ratio 15.0 RATIO (10-20); Calcium,Total 9.3 mg/dL (7.6-11.0); Carbon Dioxide 26.6 mmol/L (21.0-32.0); Chloride 103 mmol/L (98-108); Globulin 3.0 g/dL (2.2-4.2); Glucose 103 mg/dL (70-99); Potassium 4.3 mmol/L (3.3-5.1)
[2024-12-02 18:20] LABS: Xtra Tube Kwok EXTRA TUBE
== END | disposition home or self-care (01) ==
LOC: POLAB3 10:19
PROVIDERS: PCP Family Medicine Geriatric Medicine; Visit Provider Family Medicine Geriatric Medicine
DX: I10 Essential (primary) hypertension (principal); E03.9 Hypothyroidism, unspecified; E55.9 Vitamin D deficiency, unspecified
CPT/HCPCS: 36415; 80053; 82306; 84443; 85025

== ENCOUNTER → 2024-12-14 | Outpatient (CLI) | payer MEDICARE, OTHER, SELFPAY | END | disposition home or self-care (01) | LOC: POLAB3 15:58 | PROVIDERS: PCP Family Medicine Geriatric Medicine; Visit Provider Family Medicine Geriatric Medicine | DX: R05.9 Cough, unspecified (principal); R06.2 Wheezing | CPT/HCPCS: 87631 ==

== ENCOUNTER → 2024-12-14 | Outpatient (CLI) | payer MEDICARE, OTHER, SELFPAY ==
--- NOTE | 2024-12-14 16:04 | RAD_ITS ---
PROCEDURE: CHEST PA AND LATERAL 12/14/2024 REASON FOR EXAM: COUGH/WHEEZING/PNEUMONIA TECHNIQUE: Procedure Code: RADCXR Modality: DX Procedure: CHEST PA AND LATERAL COMPARISON: Two-view chest, 07/14/2022 FINDINGS: The lungs are clear. There is cardiomegaly and aortic ectasia consistent with benign essential hypertension. 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 There is a large hiatal hernia. Stable 13 mm calcific density in the left upper quadrant uncertain location. RAD/Chest PA and Lateral IMPRESSION: No evidence of acute cardiopulmonary pathology. Other findings as noted. Reading Location: [id number]
== END | disposition home or self-care (01) ==
LOC: RAD 15:59
PROVIDERS: PCP Family Medicine Geriatric Medicine; Referring Provider Family Medicine Geriatric Medicine; Visit Provider Family Medicine Geriatric Medicine
DX: R06.2 Wheezing (principal); R05.9 Cough, unspecified; J18.9 Pneumonia, unspecified organism
CPT/HCPCS: 71046